=== PATIENT | female | born 1965 | race American Indian/Alaskan Native ===

== ENCOUNTER 2016-09-21 10:01 | Observation (INO) | payer MEDICAID, OTHER ==
--- NOTE | 2016-09-21 10:16 | ED PDOC ---
Arrival/HPI - General Time Seen by Provider: 09/21/16 10:07 Historian: Patient - History of Present Illness Narrative History of Present Illness (Text): 09/21/16 10:16 This 50 yo female with pmh alcohol dependence, seizures, substance abuse, presents to this ED c/o lower back pain x 2 days. Patient admits drinking Vodka last night, and she feels nausea this morning. Patient denies abdominal pain, or pelvic pain. Denies urinary symptoms, rectal bleeding, hematemesis, or sob. Patient denies recent fall or trauma. Time/Duration: Other (2 days) Quality: Aching Context: Home Past Medical History - Provider Review Nursing Documentation Reviewed: Yes - Infectious Disease Hx of Infectious Diseases: None - Cardiac Hx Hypertension: Yes - Pulmonary Hx Bronchitis: Yes - Neurological Hx Seizures: Yes - Hematological/Oncological Hx Cancer: No - Musculoskeletal/Rheumatological Hx Falls: No - Gastrointestinal Other/Comment: never had EGD or Colon - Psychiatric Hx Substance Use: Yes - Surgical History Hx Orthopedic Surgery: Yes (20 YEARS) - Anesthesia Hx Anesthesia: Yes Hx Anesthesia Reactions: No Hx Malignant Hyperthermia: No - Suicidal Assessment Feels Threatened In Home Enviroment: No Family/Social History - Physician Review Nursing Documentation Reviewed: Yes Family/Social History: No Known Family HX Smoking Status: Light Smoker < 10 Cigarettes Daily Hx Alcohol Use: Yes Hx Substance Use: Yes Substance used: MARAJUANA Allergies/Home Meds Allergies/Adverse Reactions: Allergies No Known Allergies Allergy (Verified 09/21/16 10:31) Review of Systems - Review of Systems Constitutional: Normal. absent: Fatigue, Weight Change, Fevers Eyes: Normal ENT: Normal Respiratory: Normal. absent: SOB, Cough, Sputum Cardiovascular: Normal. absent: Chest Pain, Palpitations Gastrointestinal: Nausea, Vomiting. absent: Abdominal Pain, Stool Changes, Constipation, Diarrhea, Appetite Changes, Hematochezia, Hematemesis Genitourinary Female: Normal. absent: Dysuria, Frequency, Hematuria, Vaginal Bleeding, Vaginal Discharge Musculoskeletal: Normal, Back Pain Skin: Normal Neurological: Normal. absent: Headache, Dizziness, Focal Weakness, Gait Changes , Speech Changes, Facial Droop Endocrine: Normal Hemo/Lymphatic: Normal Psychiatric: Normal Physical Exam Vital Signs Temp Pulse Resp BP Pulse Ox 09/21/16 17:30 107 H 15 138/90 95 09/21/16 15:28 110 H 16 146/79 97 09/21/16 13:17 111 H 16 131/80 98 09/21/16 10:23 99.1 F 118 H 18 172/89 H 98 Temperature: Afebrile Blood Pressure: Normal Pulse: Regular Respiratory Rate: Normal Appearance: Positive for: Well-Appearing, Non-Toxic, Comfortable Pain Distress: None Mental Status: Positive for: Alert and Oriented X 3 - Systems Exam Head: Present: Atraumatic, Normocephalic Pupils: Present: PERRL Extroacular Muscles: Present: EOMI Conjunctiva: Present: Normal Mouth: Present: Moist Mucous Membranes Neck: Present: Normal Range of Motion Respiratory/Chest: Present: Clear to Auscultation, Good Air Exchange. No: Respiratory Distress, Accessory Muscle Use, Wheezes, Retracting, Rhonchi Cardiovascular: Present: Regular Rate and Rhythm, Normal S1, S2. No: Murmurs Abdomen: Present: Tenderness (generalized tenderness), Normal Bowel Sounds. No : Distention, Peritoneal Signs, Rebound, Guarding Back: Present: Normal Inspection. No: CVA Tenderness Upper Extremity: Present: Normal Inspection. No: Cyanosis, Edema Lower Extremity: Present: Normal Inspection, NORMAL PULSES, Normal ROM, Neurovascularly Intact, Capillary Refill < 2 s. No: Edema, CALF TENDERNESS Neurological: Present: GCS=15, CN II-XII Intact, Speech Normal, Motor Func Grossly Intact, Normal Sensory Function Skin: Present: Warm, Dry, Normal Color. No: Rashes Psychiatric: Present: Alert, Oriented x 3, Normal Insight, Normal Concentration Medical Decision Making ED Course and Treatment: 09/21/16 16:[address] Heredia Hospitalist, regarding patient c/o back pain, abnormal CT scan, alcohol withdrawing, and abnormal labs. She agreed with plan for observation Re-evaluation Time: 16:51 Reassessment Condition: Re-examined, Improving,but remains with symptoms - Lab Interpretations Microbiology Results: Microbiology Results 09/21/16 16:00 Urine,Clean Catch Urine Culture - Final Escherichia Coli Lab Results: 09/21/16 10:48 09/21/16 10:48 Lab Results 09/21/16 14:43: Urine Color yellow, Urine Appearance Clear, Urine pH 7.5, Ur Specific [place] 1.015, Urine Protein 100 H, Urine Glucose (UA) Negative, Urine Ketones 40 H, Urine Blood Negative, Urine Nitrate Negative, Urine Bilirubin Negative, Urine Urobilinogen 1.0 H, Ur Leukocyte Esterase Negative, Urine RBC TEST NOT PERFORMED, Urine WBC 5 - 10, Ur Epithelial Cells 10 - 12, Amorphous Sediment Small, Urine Bacteria Trace 09/21/16 10:48: Alcohol, Quantitative 19 H 09/21/16 10:48: Sodium 136, Potassium 3.1 L, Chloride 83 L, Carbon Dioxide 20 L , Anion Gap 36 H, BUN 18, Creatinine 0.6, Est GFR ( Amer) > 60, Est GFR ( Non-Af Amer) > 60, Random Glucose 94, Calcium 9.2, Total Bilirubin 0.8, AST 181 H, ALT 468 H, Alkaline Phosphatase 157 H, Total Protein 8.3, Albumin 4.5, Globulin 3.8, Albumin/Globulin Ratio 1.2, Lipase 16 L 09/21/16 10:48: WBC 17.6 H D, RBC 4.67, Hgb 14.5, Hct 41.2, MCV 88.2, MCH 31.0, MCHC 35.2, RDW 15.0 H, Plt Count 304, MPV 9.3, Gran % 88.2 H, Lymph % (Auto) 8.3 L, Cowley % (Auto) 3.4, Eos % (Auto) 0.0 L, Baso % (Auto) 0.1, Gran # 15.48 H , Lymph # 1.5, Cowley # 0.6, Eos # 0.0, Baso # 0.02 I have reviewed the lab results: Yes Interpretation: Abnormal lab values - RAD Interpretation Narrative RAD Interpretations (Text): 09/21/16 17:28 CXR: NAD CT Abdomen/Pelvis scan was abnormal. See official report Radiology Orders: 09/21/16 11:38 CHEST PORTABLE [RAD] Stat 09/21/16 11:55 ABD & PELVIS W/O PO OR IV CONT [CT] Stat - EKG Interpretation Interpreted by ED Physician: Yes (Sinus tachycardia @ [address] Changes) Type: 12 lead EKG Comparison: No previous EKG avail. - Medication Orders Current Medication Orders: Discontinued Medications Amlodipine Besylate (Norvasc) 5 mg PO DAILY LUISITO Last Admin: 09/22/16 13:50 Dose: 5 mg Multivitamins/Vitamin C 10 ml/Thiamine HCl 100 mg/ Folic Acid 1 mg/ Sodium Chloride 1,011.2 mls @ 1,000 mls/hr IV .Q1H1M ONE Stop: 09/21/16 11:17 Last Admin: 09/21/16 11:14 Dose: 1,000 mls/hr Famotidine (Pepcid 20mg/50ml Premix) 20 mg in 50 mls @ 100 mls/hr IVPB STAT STA Stop: 09/21/16 10:46 Last Admin: 09/21/16 10:45 Dose: 100 mls/hr Sodium Chloride (Sodium Chloride 0.9%) 1,000 mls @ 999 mls/hr IV .Q1H1M STA Stop: 09/21/16 12:36 Last Admin: 09/21/16 11:46 Dose: 999 mls/hr Sodium Chloride (Sodium Chloride 0.9%) 1,000 mls @ 999 mls/hr IV .Q1H1M STA Stop: 09/21/16 17:45 Last Admin: 09/21/16 17:25 Dose: 999 mls/hr Folic Acid 1 mg/ Thiamine HCl 100 mg/ Multivitamins/Vitamin C 10 ml/ Dextrose 1 ,011.2 mls @ 100 mls/hr IV .Q10H7M [facility] Folic Acid 1 mg/ Thiamine HCl 100 mg/ Multivitamins/Vitamin C 10 ml/ Potassium Chloride 40 meq/ Dextrose 1,031.2 mls @ 100 mls/hr IV .[id number] [facility] Last Admin: 09/22/16 11:40 Dose: 100 mls/hr Ceftriaxone Sodium (Rocephin 1 Gram Ivpb) 1 gm in 100 mls @ 100 mls/hr IVPB DAILY LUISITO PRN Reason: Protocol Last Admin: 09/22/16 09:51 Dose: 100 mls/hr Lorazepam (Ativan) 2 mg IVP ONCE ONE PRN Reason: Protocol Stop: 09/21/16 10:18 Last Admin: 09/21/16 10:44 Dose: 2 mg Lorazepam (Ativan) 2 mg IVP ONCE ONE PRN Reason: Protocol Stop: 09/21/16 16:48 Last Admin: 09/21/16 17:25 Dose: 2 mg Lorazepam (Ativan) 1 mg IVP Q6H PRN; Protocol PRN Reason: Anxiety Lorazepam (Ativan) 2 mg IVP Q3 PRN; Protocol PRN Reason: Anxiety Last Admin: 09/22/16 04:28 Dose: 2 mg Re-Assess: Reassess Psych Meds Document 09/22/16 04:58 LG (Rec: 09/22/16 07:04 LG [id number]) Reassess Psych Med Effective Lorazepam (Ativan) 1 mg IVP Q6H PRN; Protocol PRN Reason: Anxiety Lorazepam (Ativan) 2 mg PO QID LUISITO PRN Reason: Protocol Morphine Sulfate (Morphine) 2 mg IVP STAT STA Stop: 09/21/16 11:38 Last Admin: 09/21/16 13:17 Dose: 2 mg Morphine Sulfate (Morphine) 4 mg IVP STAT STA Stop: 09/21/16 16:45 Last Admin: 09/21/16 17:25 Dose: 4 mg Nicotine (Nicoderm Cq) 1 patch TD DAILY LUISITO Last Admin: 09/22/16 09:51 Dose: 1 patch Ondansetron HCl (Zofran Inj) 4 mg IVP STAT STA Stop: 09/21/16 11:38 Last Admin: 09/21/16 11:51 Dose: 4 mg Ondansetron HCl (Zofran Inj) 4 mg IVP STAT STA Stop: 09/21/16 16:46 Last Admin: 09/21/16 17:25 Dose: 4 mg Ondansetron HCl (Zofran Inj) 4 mg IVP Q4H PRN PRN Reason: Nausea/Vomiting Last Admin: 09/21/16 19:16 Dose: 4 mg Pantoprazole Sodium (Protonix Inj) 40 mg IVP DAILY LUISITO Last Admin: 09/22/16 09:51 Dose: 40 mg Potassium Chloride (K-Dur 20 Meq Er Tab) 60 meq PO STAT STA Stop: 09/21/16 11:40 Last Admin: 09/21/16 11:51 Dose: 60 meq Potassium Chloride (Potassium Chloride Oral Soln) 40 meq PO ONCE ONE Stop: 09/22/16 07:20 Last Admin: 09/22/16 09:56 Dose: 40 meq Tramadol HCl (Ultram) 50 mg PO TID PRN PRN Reason: Pain, severe (8-10) Last Admin: 09/22/16 13:50 Dose: 50 mg Disposition/Present on Arrival - Present on Arrival Any Indicators Present on Arrival: No History of DVT/PE: No History of Uncontrolled Diabetes: No Urinary Catheter: No History Surgical Site Infection Following: None - Disposition Have Diagnosis and Disposition been Completed?: Yes Diagnosis: Alcohol withdrawal, Esophagitis, Abdominal pain, Back pain Disposition: HOSPITALIZED Disposition Time: 16:53 Patient Plan: Observation Condition: STABLE
[2016-09-21] MEDS ORDERED: Famotidine 20mg/50ml 20 MG/50 ML BAG IVPB STA (10:17)
[2016-09-21] MEDS ORDERED: Multivitamin (MVI) 10 ML, Thiamine 100 MG, Folic Acid 1 MG in Sodium Chloride 0.9% 1,00... IV ONE (10:17)
[2016-09-21 10:53] LABS: BASO # 0.02 K/mm3 (0.0-2.0); BASO % 0.1 % (0.0-3.0); GRAN # 15.48 (1.4-6.5); GRAN % 88.2 % (50.0-68.0); HEMOGLOBIN 14.5 gm/dL (12.0-16.0); LYMPH # 1.5 (1.2-3.4); LYMPH % 8.3 % (22.0-35.0); MEAN CELL VOLUME 88.2 fL (80.0-105.0); MEAN CORPUSCULAR HGB CONC 35.2 g/dl (31.0-37.0); MEAN PLATELET VOLUME 9.3 fl (7.0-11.0); MONO # 0.6 (0.1-0.6); MONO % 3.4 % (1.0-6.0); PLATELET COUNT 304 10^3/uL (120.0-450.0); RBC 4.67 10^6/uL (3.5-6.1); WHITE BLOOD COUNT 17.6 10^3/ul (4.5-11.0)
[2016-09-21 11:03] LABS: ALB/GLOB RATIO 1.2 (1.1-1.8); ALBUMIN 4.5 g/dL (3.0-4.8); ALT/SGPT 468 U/L (7-56); AST/SGOT 181 U/L (15-39); BLOOD UREA NITROGEN 18 mg/dL (7-21); CALCIUM 9.2 mg/dL (8.4-10.5); GFR AFRICAN-AMERICAN > 60; GFR NON-AFRICAN AMERICAN > 60
[2016-09-21 11:13] LABS: LIPASE 16 U/L (23-300)
[2016-09-21] MEDS ORDERED: Sodium Chloride 0.9% 1,000 ML IV STA ×2 (11:36→16:45)
[2016-09-21] MEDS ORDERED: Morphine 2 mg/ml ISec IVP STA (11:37)
[2016-09-21] MEDS ORDERED: Potassium Chloride 20 mEq ER Tab PO STA (11:39)
--- NOTE | 2016-09-21 14:06 | RAD ---
HISTORY: cough COMPARISON: Chest radiograph dated 03/28/2016 FINDINGS: LUNGS: Mild bibasilar atelectasis left greater than right. Developing infiltrates could be excluded followup radiographs PLEURA: No significant pleural effusion identified, no pneumothorax apparent. CARDIOVASCULAR: Normal. OSSEOUS STRUCTURES: No significant abnormalities. VISUALIZED UPPER ABDOMEN: Normal. OTHER FINDINGS: None. IMPRESSION: Mild bibasilar atelectasis left greater than right ; developing infiltrates could be excluded followup radiographs
[2016-09-21 15:24] LABS: PH,URINE 7.5 (4.7-8.0); URINE BILIRUBIN NEGATIVE (NEGATIVE); URINE BLOOD NEGATIVE (NEGATIVE); URINE GLUCOSE (UA) NEGATIVE (NEGATIVE); URINE LEUKOCYTE ESTERASE NEGATIVE Leu/uL (NEGATIVE); URINE NITRATE NEGATIVE (NEGATIVE); URINE PROTEIN 100 mg/dL (<30 mg/dL)
[2016-09-21 15:45] LABS: URINE AMORPHOUS SEDIMENT SMALL; URINE APPEARANCE CLEAR (CLEAR); URINE BACTERIA TRACE (NEG)
--- NOTE | 2016-09-21 16:19 | CT ---
Procedure CT abdomen pelvis dated 09/21/2016 History nausea, vomiting, epigastric, right flank pain Comparison Comparison made with CT scan of the abdomen pelvis 03/28/2016. Technique Contiguous axial images of the abdomen and pelvis performed in standard fashion following without the use of oral or intravenous contrast material. Two dimensional sagittal and coronal reformats generated. Radiation dose: Total exam DLP = 633.42 mGy-cm. This CT exam was performed using one or more of the following dose reduction techniques: Automated exposure control, adjustment of the mA and/or kV according to patient size, and/or use of iterative reconstruction technique. Findings Lower thorax Bibasilar atelectasis and or scarring changes left greater than right. No evidence of effusion or basilar pneumothorax. There is a moderate size hiatal hernia with mild wall thickening of the distal esophagus that may in part be due to exclusion of gastric mucosa. Esophagitis or other intrinsic/invasive wall lesion not excluded. Endoscopy followup is recommended if clinically indicated to exclude esophageal carcinoma. Liver Liver is borderline/ mildly enlarged measuring nearly 18 cm in CC dimension. Moderate diffuse fatty hepatic infiltration. No obvious hepatic mass or collection identified on this noncontrast study. Gallbladder and bile ducts Gallbladder is physiologically distended no evidence of intraluminal gallbladder calculi. Pancreas The pancreas appears grossly unremarkable so far as can sandrine intravenous circulating intravenous contrast material as well as under opacified adjacent bowel. Spleen Spleen exhibits normal size and attenuation pattern without mass collection or calcification. Adrenals Slightly nodular appearing left adrenal gland. Kidneys and ureters Kidneys demonstrate relatively symmetric size. No evidence of nephrolithiasis or hydronephrosis. Bladder . Urinary bladder is physiologically distended. No evidence of intraluminal urinary bladder calculi. Reproductive The uterus appears unremarkable. Apparent left adnexal cyst that measures approximately 2.75cm ap x 2.4cm t x 2.2cm cc. Appendix Appendix is unremarkable best seen on axial image number [id number]. Bowel Evaluation of the bowel is limited due to by lack of oral contrast material. As mentioned above Additionally, the stomach is incompletely distended which may also in part account for thick-walled appearance the possibility of a gastritis or carcinoma also not excluded. Clinical correlation recommended. Visualized loops of small bowel exhibit normal contour and caliber. No evidence of acute mechanical small bowel obstruction however there does appear to be fecalized content within the small bowel possibly due to stasis. There is mild submucosal fat deposition within the cecum, ascending and proximal transverse colon ; rule out sequela of chronic inflammation. . Peritoneum Unremarkable. No fluid collection. No free air. Tiny fat containing umbilical hernia. Lymph nodes No significant enlarged/bulky adenopathy. Lymph nodes. Vasculature No evidence of abdominal aortic or iliac artery aneurysms. Bones Minor multilevel degenerative spondylosis of the lower thoracic and lumbar spine. No evidence of acute compression fractures no retropulsed fragments. Other Findings None. Impression Bibasilar atelectasis and or scarring left greater than right. There is a moderate size hiatal hernia with wall thickening of the distal esophagus to protrusion of gastric mucosa however the possibility of esophagitis or other intrinsic/invasive wall lesion including esophageal carcinoma not excluded. Additionally,, there is wall thickening of the stomach which may in part be due to incomplete distention however gastritis or other invasive wall lesion including gastric carcinoma should be excluded. Followup endoscopy suggested for further evaluation. Borderline -mild hepatomegaly. Moderate diffuse fatty hepatic infiltration. Mild submucosal fatty deposition involving the cecum ascending and proximal transverse colon; rule out sequela of chronic inflammation. The probable Left adnexal cyst. Findings discussed with emergency room SOPHIE Wilder at approximately 4:10 p.m. with written down and read back verification
[2016-09-21] MEDS ORDERED: Morphine 4 mg/ml ISec IVP STA (16:44)
[2016-09-21 17:32] LABS: BARBITURATES, UR NEGATIVE (NEGATIVE); BENZODIAZEPINES, UR NEGATIVE (NEGATIVE); OPIATES, UR NEGATIVE (NEGATIVE); PHENCYCLIDINE, UR NEGATIVE (NEGATIVE)
[2016-09-21] MEDS ORDERED: Folic Acid 1 MG, Thiamine 100 MG, Multivitamin (MVI) 10 ML in Dextrose 5% In Water 1,00... IV SCH (18:00)
--- NOTE | 2016-09-21 20:22 | CP.PCM.HP ---
<Dexter Yancey - Last Filed: 09/21/16 20:43> History of Present Illness - History of Present Illness History of Present Illness: Patient is a 50 year old female who presented to the ED with complaint of lower back pain, abdominal pain, and EtOH withdrawal symptoms. Patient stated that she was binge drinking late last night due to problems she had with her brother and father, and then took one of her fathers Danielapins to fall asleep. Patient stated she was Hungover in the morning and forced herself to vomit. She decided to come to the ED when her abdominal pain/back pain got worse ROS: Complains of: Dizziness, Back Pain. Generalized body aches, diffuse abdominal pain, loose stools, and palpatations. Denies: SOB, Urinary incontinence, radiculopathy, bowel inconstinence PMH: Diabetes and Heartburn PSH: Pin in foot over 30 years ago Allergies: NKDA Fam Hx: Pancreatic Cancer (Father-Alive), Cancer (Paternal Uncle-), Cancer (Paternal Aunt- Alive Social Hx: Binge drinks once in a while, Marijuana, Smokes pack a day for about 35 years. 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 Present on Admission - Present on Admission Any Indicators Present on Admission: No Review of Systems - Review of Systems All systems: reviewed and no additional remarkable complaints except - Constitutional Constitutional: As Per HPI - EENT Ears: As Per HPI - Cardiovascular Cardiovascular: As Per HPI - Respiratory Respiratory: As Per HPI - Gastrointestinal Gastrointestinal: As Per HPI - Genitourinary Genitourinary: As Per HPI - Musculoskeletal Musculoskeletal: As Per HPI - Neurological Neurological: As Per HPI Past Patient History - Infectious Disease Hx of Infectious Diseases: None - Past Medical History & Family History Past Medical History?: Yes - Past Social History Smoking Status: Light Smoker < 10 Cigarettes Daily - CARDIAC Hx Hypertension: Yes - PULMONARY Hx Bronchitis: Yes - NEUROLOGICAL Hx Seizures: Yes - HEMATOLOGICAL/ONCOLOGICAL Hx Cancer: No - MUSCULOSKELETAL/RHEUMATOLOGICAL Hx Falls: No - GASTROINTESTINAL Other/Comment: never had EGD or Colon - PSYCHIATRIC Hx Substance Use: Yes - SURGICAL HISTORY Hx Orthopedic Surgery: Yes (20 YEARS) - ANESTHESIA Hx Anesthesia: Yes Hx Anesthesia Reactions: No Hx Malignant Hyperthermia: No Meds Allergies/Adverse Reactions: Allergies Allergy/AdvReac Type Severity Reaction Status Date / Time No Known Allergies Allergy Verified 09/21/16 10:31 Physical Exam - Constitutional Appears: Toxic - Head Exam Head Exam: ATRAUMATIC, NORMOCEPHALIC - Eye Exam Eye Exam: EOMI - Respiratory Exam Respiratory Exam: Clear to Auscultation Bilateral. absent: Rales, Wheezes - Cardiovascular Exam Cardiovascular Exam: Tachycardia, +S1, +S2 - GI/Abdominal Exam Additional comments: Diffuse Abdominal Tenderness - Extremities Exam Extremities exam: Negative for: pedal edema - Back Exam Back exam: paraspinal tenderness. absent: CVA tenderness (L), CVA tenderness (R ) - Neurological Exam Neurological exam: Alert, Oriented x3 - Psychiatric Exam Psychiatric exam: Depressed - Skin Skin Exam: Normal Color Results - Vital Signs Recent Vital Signs: Last Vital Signs Temp 98.4 F 09/21/16 19:16 Pulse 102 H 09/21/16 19:16 Resp 20 09/21/16 19:16 BP 144/97 H 09/21/16 19:16 Pulse Ox 98 09/21/16 19:16 - Labs Result Diagrams: 09/21/16 10:48 09/21/16 10:48 Labs: Laboratory Results - last 24 hr 09/21/16 17:05 Urine Opiates Screen Negative Urine Methadone Screen Negative Ur Barbiturates Screen Negative Ur Phencyclidine Scrn Negative Ur Amphetamines Screen Negative U Benzodiazepines Scrn Negative U Oth Cocaine Metabols Negative U Cannabinoids Screen Positive H Assessment & Plan - Assessment and Plan (Free Text) Assessment: This is a 50 year old female who was admitted for Abdominal Pain, Back Pain, and Alcohol withdrawal. CT Abd/Pelvis on admission was read as: Bibasilar atelectasis or scarring left greater than right. Moderate size hiatal hernia with wall thickening of the distal esophagus to protrusion of gastric mucosa however the possibility of esophagitis or other intrinsic/invasive wall lesion including esophageal carcinoma not excluded. Also wall thickening of stomach. Borderline mild hepatomegaly, moderate diffuse fatty hepatic infiltration. Mild submucosal fatty deposition involving the cecum ascending and proximal transverse colon; rule out sequela of chronic inflammation. Patient also had elevated White Count, elevated liver enzymes, and loose stools (while in ED) Plan: 1. Alcohol Withdrawal -Ativan -WA protocol -Seizure precautions -Aspiration precaution. 2. Abdominal Pain likely Alcoholic Gastritis -CT Scan -Morphine -Liquid Diet -GI Consult 3. Elevated White Count (17.6 on admission) -Procal -Urine/Blood Cultures -Rocephin -Stool culture for CDiff CBC 4. Elevated LFTs -Lipid Panel -CMP -Hep Panel 5. Nicotine dependence -Nicotine Patch 6. Depressive Symptoms/Etoh Abuse -Psych Consult - Date & Time Date: 09/21/16 Time: 20:44 <Dev Heredia - Last Filed: 09/22/16 16:02> Results - Vital Signs Recent Vital Signs: Last Vital Signs Temp 99.7 F H 09/22/16 11:10 Pulse 90 09/22/16 13:50 Resp 18 09/22/16 11:10 BP 160/105 H 09/22/16 13:50 Pulse Ox 100 09/22/16 11:10 - Labs Result Diagrams: 09/22/16 07:00 09/22/16 06:00 Labs: Laboratory Results - last 24 hr 09/21/16 09/22/16 09/22/16 17:05 06:00 06:00 WBC RBC Hgb Hct MCV MCH MCHC RDW Plt Count MPV PT INR APTT Sodium 134 Potassium 3.5 L Chloride 97 L Carbon Dioxide 28 Anion Gap 13 BUN 7 Creatinine 0.7 Est GFR ( Amer) > 60 Est GFR (Non-Af Amer) > 60 Random Glucose 129 H Calcium 8.1 L Magnesium 1.8 Total Bilirubin 1.2 AST 103 H ALT 278 H Alkaline Phosphatase 121 Total Protein 6.6 Albumin 3.4 Globulin 3.2 Albumin/Globulin Ratio 1.1 Triglycerides 226 H Cholesterol 112 L LDL Cholesterol Direct < 30 HDL Cholesterol 39 Procalcitonin 0.09 L Urine Opiates Screen Negative Urine Methadone Screen Negative Ur Barbiturates Screen Negative Ur Phencyclidine Scrn Negative Ur Amphetamines Screen Negative U Benzodiazepines Scrn Negative U Oth Cocaine Metabols Negative U Cannabinoids Screen Positive H Hepatitis A IgM Ab Hep Bs Antigen Hep B Core IgM Ab Hepatitis C Antibody 09/22/16 09/22/16 09/22/16 07:00 07:00 07:00 WBC 10.1 D RBC 4.16 Hgb 12.3 Hct 37.4 MCV 89.9 MCH 29.6 MCHC 32.9 RDW 15.4 H Plt Count 216 MPV 9.1 PT 10.5 INR 0.97 APTT 27.3 Sodium Potassium Chloride Carbon Dioxide Anion Gap BUN Creatinine Est GFR ( Amer) Est GFR (Non-Af Amer) Random Glucose Calcium Magnesium Total Bilirubin AST ALT Alkaline Phosphatase Total Protein Albumin Globulin Albumin/Globulin Ratio Triglycerides Cholesterol LDL Cholesterol Direct HDL Cholesterol Procalcitonin Urine Opiates Screen Urine Methadone Screen Ur Barbiturates Screen Ur Phencyclidine Scrn Ur Amphetamines Screen U Benzodiazepines Scrn U Oth Cocaine Metabols U Cannabinoids Screen Hepatitis A IgM Ab Negative Hep Bs Antigen Negative Hep B Core IgM Ab Negative Hepatitis C Antibody Negative Attending/Attestation - Attestation I have personally seen and examined this patient.: Yes I have fully participated in the care of the patient.: Yes I have reviewed all pertinent clinical information: Yes Notes (Text): 09/22/16 15:57 Attending note; Patient seen and examined with resident. Patient is a 50-year-old female admitted with alcohol abuse/back pain/abdominal pain. CT abdomen consistent with esophagitis/gastritis. GI evaluation Requested. Started on IV banana bag. Ativan when necessary for withdrawal symptoms. Continue CIWA protocol. Complete alcohol cessation is strongly advised. Patient with a history of chronic alcohol abuse. elevated LFTs; secondary to alcohol abuse. Monitor closely. Hepatitis serology ordered. Mild leukocytosis; monitor closely. Patient is afebrile and nontoxic. depression; psychiatric evaluation requested. active smoking; Smoking cessation is strongly advised. Started on NicoDerm patch. AA meetings/rehabilitation recommended again. advised to follow-up with PMD of choice. 09/22/16 16:01 09/22/16 16:01
[2016-09-21] MEDS: Folic Acid 1 MG, Thiamine 100 MG, Multivitamin (MVI) 10 ML, Potassium Chloride 40 MEQ i... IV SCH (20:30)
[2016-09-22 01:08] VITALS: RESP 18; BMI 27.9
[2016-09-22 07:07] LABS: ALB/GLOB RATIO 1.1 (1.1-1.8); ALBUMIN 3.4 g/dL (3.0-4.8); ALT/SGPT 278 U/L (7-56); AST/SGOT 103 U/L (15-39); BLOOD UREA NITROGEN 7 mg/dL (7-21); CALCIUM 8.1 mg/dL (8.4-10.5); GFR AFRICAN-AMERICAN > 60; GFR NON-AFRICAN AMERICAN > 60; HDL CHOLESTEROL 39 mg/dL (29-60); MAGNESIUM 1.8 mg/dL (1.7-2.2)
[2016-09-22] MEDS ORDERED: Potassium Chloride 40 mEq/30 ml LIQ UD PO ONE (07:19)
[2016-09-22 07:30] LABS: HEMOGLOBIN 12.3 gm/dL (12.0-16.0); MEAN CELL VOLUME 89.9 fL (80.0-105.0); MEAN CORPUSCULAR HEMOGLOBIN 29.6 pg (25.0-35.0); MEAN CORPUSCULAR HGB CONC 32.9 g/dl (31.0-37.0); MEAN PLATELET VOLUME 9.1 fl (7.0-11.0); RBC 4.16 10^6/uL (3.5-6.1); RED CELL DISTRIBUTION WIDTH 15.4 % (11.5-14.5); WHITE BLOOD COUNT 10.1 10^3/ul (4.5-11.0)
[2016-09-22 07:39] LABS: LDL CHOLESTEROL < 30 mg/dL (0-129)
[2016-09-22 07:42] LABS: INR 0.97 (0.93-1.08); PARTIAL THROMBOPLASTIN TIME 27.3 Seconds (23.7-30.8); PROTHROMBIN TIME 10.5 Seconds (9.9-11.8)
--- NOTE | 2016-09-22 08:25 | CON ---
DATE: 09/22/2016 HISTORY OF PRESENT ILLNESS: I saw Ms. Pickard this morning. She is a 50-year-old black female with a history of diabetes, acid reflux, sores, significant alcohol use, and now with complaints of lower back pain and alcohol withdrawal issues. She has been drinking heavily over the past week or so due to family issues. She is denying hematemesis or rectal bleeding. At the current time point, this morning at the bedside, the patient denies any abdominal pain. PHYSICAL EXAMINATION: VITAL SIGNS: I reviewed this patient's vital signs.. HEENT: Noncontributory. LUNGS: Clear to auscultation. HEART: Regular rate and rhythm. ABDOMEN: Soft and no tenderness elicited in any quadrant. LABORATORY DATA: I reviewed this patient's laboratory data. White count significant for 17.6, H and H 14.4 and 41, and platelet count of 304. Evaluation of comp metabolic indicates hypokalemia, bilirubin is 0.8, AST and ALT ratio 181/468, and alkaline phosphate 157. UA noncontributory. She had an alcohol level of 19. Review of radiology indicates substantial degree of hepatic steatosis. I reviewed the x-ray images, also the comment of the radiologist indicating thick-walled stomach distally. I think the suggestion is reasonable for an endoscopy at some later date, not at the current time point. ASSESSMENT AND PLAN: This is a 50-year-old black female admitted with history of alcohol use and for detox. I reviewed the patient's orders, which consist of Ativan, IV fluids, calcium supplementation, as well as PPI. The patient is currently on ceftriaxone ordered by Dr. Heredia. Unclear etiology of her back pain, this can be worked up by the house staff. Keaton Singh DO, PhD REGINALD
[2016-09-22] MEDS ORDERED: cefTRIAXone 1 gm 1 GM/100 ML BAG IVPB SCH (10:00)
[2016-09-22] MEDS: Folic Acid 1 MG, Thiamine 100 MG, Multivitamin (MVI) 10 ML, Potassium Chloride 40 MEQ i... IV SCH (11:40)
[2016-09-22 12:14] LABS: HEPATITIS B SURFACE AG NEGATIVE (NEGATIVE)
[2016-09-22 12:20] LABS: HEPATITIS A IGM NEGATIVE (NEGATIVE); HEPATITIS B CORE AB NEGATIVE (NEGATIVE)
[2016-09-22 12:33] LABS: HEPATITIS C ANTIBODY NEGATIVE (NEGATIVE)
--- NOTE | 2016-09-22 14:26 | CP.PCM.CON ---
History of Present Illness - History of Present Illness History of Present Illness: This 50 yo female with pmh alcohol dependence, seizures, substance abuse, previous detoxes and rehabs, denied previous admission to the psychiatric inpatient unit, patient was admitted on the medical side for evaluation stabilization of alcohol withdrawal symptoms, psychotic consult was called for evaluation of depressive symptoms as well as medication management. Patient was seen on exam today, patient was observed sitting in the bed, mildly confused, patient was observed eating some ice cream. Patient reported that she feels withdrawal symptoms from her alcohol observed to have mild upper extremity tremor, blood pressure elevated, patient is tachycardic. Patient said that she is not depressed, denied thoughts of harming herself or others,denied intent or plan. Patient also denied visual, auditory, tactile hallucinations, denied paranoid ideations, patient does not present to be a psychotic. Patient denied being anxious. Patient reports that that she has no suicidal ideations, no homicidal ideations , patient denied any intent or plan. Patient reported that she smokes marijuana "on and off". Past psychiatric history: Patient denied history of being admitted to the psychiatric inpatient unit, patient was admitted to detox unit in 2014 patient was discharged on Neurontin, Wellbutrin, trazodone, and Vistaril. Patient does not want to be resumed on any psychotropic medications. Patient reported that she has a good night sleep. Patient is unemployed. All labs reviewed. Vitals reviewed, patient is tachycardic, has hypertension, most likely related to alcohol withdrawal symptoms. Mental status examination: Patient presented to be alert, pleasant, superficially corporative. Patient has intermittent eye contact, speech was underproductive, only yes or no answers, more described as "I'm not depressed, I 'm just fine". Thought process was concrete. Thought content patient denied visual distorted tactile hallucinations denied paranoid ideations patient denied thoughts of harming herself or others intent or plan, insight and judgment fair impulses are well controlled. Impression: alcohol withdrawals alcohol use disorder r/o substance induced mood disorder. Plan: ultivitamins, thiamine, folic acid Ativan scheduled will be implemented 2 mg 4 times a day, patient still has withdrawal symptoms, tachycardic, high blood pressure, tremor. When necessary medications Naltrexone and feels neutral need to be discussed with the patient social worker evaluation for possible inpatient rehabs AA/NA meetings this bond underwriter will sign off Should you have any questions give me a call back. Past Patient History - Infectious Disease Hx of Infectious Diseases: None - Past Medical History & Family History Past Medical History?: Yes - Past Social History Smoking Status: Light Smoker < 10 Cigarettes Daily - CARDIAC Hx Hypertension: Yes - PULMONARY Hx Bronchitis: Yes - NEUROLOGICAL Hx Seizures: Yes - RENAL Hx Chronic Kidney Disease: No - HEMATOLOGICAL/ONCOLOGICAL Hx Cancer: No - INTEGUMENTARY Hx Dermatological Problems: No - MUSCULOSKELETAL/RHEUMATOLOGICAL Hx Falls: No - GASTROINTESTINAL Other/Comment: never had EGD or Colon - PSYCHIATRIC Hx Substance Use: Yes - SURGICAL HISTORY Hx Orthopedic Surgery: Yes (20 YEARS) - ANESTHESIA Hx Anesthesia: Yes Hx Anesthesia Reactions: No Hx Malignant Hyperthermia: No Meds Allergies/Adverse Reactions: Allergies Allergy/AdvReac Type Severity Reaction Status Date / Time No Known Allergies Allergy Verified 09/21/16 10:31 - Medications Medications: Current Medications Amlodipine Besylate (Norvasc) 5 mg PO DAILY [facility] Last Admin: 09/22/16 13:50 Dose: 5 mg Folic Acid 1 mg/ Thiamine HCl 100 mg/ Multivitamins/Vitamin C 10 ml/ Potassium Chloride 40 meq/ Dextrose 1,031.2 mls @ 100 mls/hr IV [id number] [facility] Last Admin: 09/22/16 11:40 Dose: 100 mls/hr Ceftriaxone Sodium (Rocephin 1 Gram Ivpb) 1 gm in 100 mls @ 100 mls/hr IVPB DAILY [facility] PRN Reason: Protocol Last Admin: 09/22/16 09:51 Dose: 100 mls/hr Lorazepam (Ativan) 1 mg IVP Q6H PRN; Protocol PRN Reason: Anxiety Nicotine (Nicoderm Cq) 1 patch TD DAILY [facility] Last Admin: 09/22/16 09:51 Dose: 1 patch Ondansetron HCl (Zofran Inj) 4 mg IVP Q4H PRN PRN Reason: Nausea/Vomiting Last Admin: 09/21/16 19:16 Dose: 4 mg Pantoprazole Sodium (Protonix Inj) 40 mg IVP DAILY [facility] Last Admin: 09/22/16 09:51 Dose: 40 mg Tramadol HCl (Ultram) 50 mg PO TID PRN PRN Reason: Pain, severe (8-10) Last Admin: 09/22/16 13:50 Dose: 50 mg Results - Vital Signs Recent Vital Signs: Last Vital Signs Temp 99.7 F H 09/22/16 11:10 Pulse 90 09/22/16 13:50 Resp 18 09/22/16 11:10 BP 160/105 H 09/22/16 13:50 Pulse Ox 100 09/22/16 11:10 - Labs Result Diagrams: 09/22/16 07:00 09/22/16 06:00 Labs: Laboratory Results - last 24 hr 09/21/16 09/22/16 09/22/16 17:05 06:00 06:00 WBC RBC Hgb Hct MCV MCH MCHC RDW Plt Count MPV PT INR APTT Sodium 134 Potassium 3.5 L Chloride 97 L Carbon Dioxide 28 Anion Gap 13 BUN 7 Creatinine 0.7 Est GFR ( Amer) > 60 Est GFR (Non-Af Amer) > 60 Random Glucose 129 H Calcium 8.1 L Magnesium 1.8 Total Bilirubin 1.2 AST 103 H ALT 278 H Alkaline Phosphatase 121 Total Protein 6.6 Albumin 3.4 Globulin 3.2 Albumin/Globulin Ratio 1.1 Triglycerides 226 H Cholesterol 112 L LDL Cholesterol Direct < 30 HDL Cholesterol 39 Procalcitonin 0.09 L Urine Opiates Screen Negative Urine Methadone Screen Negative Ur Barbiturates Screen Negative Ur Phencyclidine Scrn Negative Ur Amphetamines Screen Negative U Benzodiazepines Scrn Negative U Oth Cocaine Metabols Negative U Cannabinoids Screen Positive H Hepatitis A IgM Ab Hep Bs Antigen Hep B Core IgM Ab Hepatitis C Antibody 09/22/16 09/22/16 09/22/16 07:00 07:00 07:00 WBC 10.1 D RBC 4.16 Hgb 12.3 Hct 37.4 MCV 89.9 MCH 29.6 MCHC 32.9 RDW 15.4 H Plt Count 216 MPV 9.1 PT 10.5 INR 0.97 APTT 27.3 Sodium Potassium Chloride Carbon Dioxide Anion Gap BUN Creatinine Est GFR ( Amer) Est GFR (Non-Af Amer) Random Glucose Calcium Magnesium Total Bilirubin AST ALT Alkaline Phosphatase Total Protein Albumin Globulin Albumin/Globulin Ratio Triglycerides Cholesterol LDL Cholesterol Direct HDL Cholesterol Procalcitonin Urine Opiates Screen Urine Methadone Screen Ur Barbiturates Screen Ur Phencyclidine Scrn Ur Amphetamines Screen U Benzodiazepines Scrn U Oth Cocaine Metabols U Cannabinoids Screen Hepatitis A IgM Ab Negative Hep Bs Antigen Negative Hep B Core IgM Ab Negative Hepatitis C Antibody Negative
--- NOTE | 2016-09-22 17:17 | CARD ---
APPROVED REPORT EKG Measurement Heart [id number] <Conclusion> Sinus tachycardia Possible Left atrial enlargement Borderline ECG
[2016-09-22 18:12] VITALS: BP 108/78; PULSE 83; TEMP 98.6; O2SAT 98
--- NOTE | 2016-09-22 19:07 | CP.PCM.DIS ---
<Dexter Yancey - Last Filed: 09/22/16 19:07> Provider - Provider Date of Admission: 09/21/16 16:48 Attending physician: Gregg Milian MD Primary care physician: Gregg Milian MD Consults: GI- Dr. Singh Psych- Dr. Jacobo Time Spent in preparation of Discharge (in minutes): 40 Hospital Course - Lab Results Lab Results: Most Recent Lab Values WBC 10.1 10^3/ul (4.5-11.0) D 09/22/16 07:00 RBC 4.16 10^6/uL (3.5-6.1) 09/22/16 07:00 Hgb 12.3 gm/dL (12.0-16.0) 09/22/16 07:00 Hct 37.4 % (36.0-48.0) 09/22/16 07:00 MCV 89.9 fL (80.0-105.0) 09/22/16 07:00 MCH 29.6 pg (25.0-35.0) 09/22/16 07:00 MCHC 32.9 g/dl (31.0-37.0) 09/22/16 07:00 RDW 15.4 % (11.5-14.5) H 09/22/16 07:00 Plt Count 216 10^3/uL (120.0-450.0) 09/22/16 07:00 MPV 9.1 fl (7.0-11.0) 09/22/16 07:00 Gran % 88.2 % (50.0-68.0) H 09/21/16 10:48 Lymph % (Auto) 8.3 % (22.0-35.0) L 09/21/16 10:48 [place] % (Auto) 3.4 % (1.0-6.0) 09/21/16 10:48 Eos % (Auto) 0.0 % (1.5-5.0) L 09/21/16 10:48 Baso % (Auto) 0.1 % (0.0-3.0) 09/21/16 10:48 Gran # 15.48 (1.4-6.5) H 09/21/16 10:48 Lymph # 1.5 (1.2-3.4) 09/21/16 10:48 [place] # 0.6 (0.1-0.6) 09/21/16 10:48 Eos # 0.0 (0.0-0.7) 09/21/16 10:48 Baso # 0.02 K/mm3 (0.0-2.0) 09/21/16 10:48 PT 10.5 Seconds (9.9-11.8) 09/22/16 07:00 INR 0.97 (0.93-1.08) 09/22/16 07:00 APTT 27.3 Seconds (23.7-30.8) 09/22/16 07:00 Sodium 134 mmol/L (132-148) 09/22/16 06:00 Potassium 3.5 mmol/L (3.6-5.0) L 09/22/16 06:00 Chloride 97 mmol/L (98-107) L 09/22/16 06:00 Carbon Dioxide 28 mmol/L (21-33) 09/22/16 06:00 Anion Gap 13 (10-20) 09/22/16 06:00 BUN 7 mg/dL (7-21) 09/22/16 06:00 Creatinine 0.7 mg/dL (0.5-1.4) 09/22/16 06:00 Est GFR ( Amer) > 60 09/22/16 06:00 Est GFR (Non-Af Amer) > 60 09/22/16 06:00 Random Glucose 129 mg/dL (70-110) H 09/22/16 06:00 Calcium 8.1 mg/dL (8.4-10.5) L 09/22/16 06:00 Magnesium 1.8 mg/dL (1.7-2.2) 09/22/16 06:00 Total Bilirubin 1.2 mg/dL (0.2-1.3) 09/22/16 06:00 AST 103 U/L (15-39) H 09/22/16 06:00 ALT 278 U/L (7-56) H 09/22/16 06:00 Alkaline Phosphatase 121 U/L (38-133) 09/22/16 06:00 Total Protein 6.6 g/dL (5.8-8.3) 09/22/16 06:00 Albumin 3.4 g/dL (3.0-4.8) 09/22/16 06:00 Globulin 3.2 gm/dL 09/22/16 06:00 Albumin/Globulin Ratio 1.1 (1.1-1.8) 09/22/16 06:00 Triglycerides 226 mg/dL (35-160) H 09/22/16 06:00 Cholesterol 112 mg/dL (130-200) L 09/22/16 06:00 LDL Cholesterol Direct < 30 mg/dL (0-129) 09/22/16 06:00 HDL Cholesterol 39 mg/dL (29-60) 09/22/16 06:00 Lipase 16 U/L (23-300) L 09/21/16 10:48 Procalcitonin 0.09 NG/ML (0.19-0.49) L 09/22/16 06:00 Urine Color yellow (YELLOW) 09/21/16 14:43 Urine Appearance Clear (CLEAR) 09/21/16 14:43 Urine pH 7.5 (4.7-8.0) 09/21/16 14:43 Ur Specific [place] 1.015 (1.005-1.035) 09/21/16 14:43 Urine Protein 100 mg/dL (<30 mg/dL) H 09/21/16 14:43 Urine Glucose (UA) Negative mg/dL (NEGATIVE) 09/21/16 14:43 Urine Ketones 40 mg/dL (NEGATIVE) H 09/21/16 14:43 Urine Blood Negative (NEGATIVE) 09/21/16 14:43 Urine Nitrate Negative (NEGATIVE) 09/21/16 14:43 Urine Bilirubin Negative (NEGATIVE) 09/21/16 14:43 Urine Urobilinogen 1.0 E.U./dL (<1 E.U./dL) H 09/21/16 14:43 Ur Leukocyte Esterase Negative [place]/uL (NEGATIVE) 09/21/16 14:43 Urine RBC TEST NOT PERFORMED 09/21/16 14:43 Urine WBC 5 - 10 /hpf (0-6) 09/21/16 14:43 Ur Epithelial Cells 10 - 12 /hpf (0-5) 09/21/16 14:43 Amorphous Sediment Small 09/21/16 14:43 Urine Bacteria Trace (NEG) 09/21/16 14:43 Urine Opiates Screen Negative (NEGATIVE) 09/21/16 17:05 Urine Methadone Screen Negative (NEGATIVE) 09/21/16 17:05 Ur Barbiturates Screen Negative (NEGATIVE) 09/21/16 17:05 Ur Phencyclidine Scrn Negative (NEGATIVE) 09/21/16 17:05 Ur Amphetamines Screen Negative (NEGATIVE) 09/21/16 17:05 U Benzodiazepines Scrn Negative (NEGATIVE) 09/21/16 17:05 U Oth Cocaine Metabols Negative (NEGATIVE) 09/21/16 17:05 U Cannabinoids Screen Positive (NEGATIVE) H 09/21/16 17:05 Alcohol, Quantitative 19 mg/dL (0-10) H 09/21/16 10:48 Hepatitis A IgM Ab Negative (NEGATIVE) 09/22/16 07:00 Hep Bs Antigen Negative (NEGATIVE) 09/22/16 07:00 Hep B Core IgM Ab Negative (NEGATIVE) 09/22/16 07:00 Hepatitis C Antibody Negative (NEGATIVE) 09/22/16 07:00 - Hospital Course Hospital Course: Patient is a 50 year old female with PMHx of chronic Alcohol abuse who was admitted to [facility] [place] for Alcohol withdrawal, possible Alcoholic Gastritis, back pain , mildly elevated white count (afebrile), depressive symptoms and Elevated LFT s. CT of abdomen was consistent with esophagitis/gastritis. GI was consulted. Patient was started on IV banana bag and Ativan taper. Patient symptoms have resolved. Elevated LFTs likely 2/2 Alcohol abuse trended down. Leukocytosis resolved. Psychiatry was consulted for depressive symptoms. Patient was counseled on alcohol and smoking cessation. Patient was sent home with Ativan Taper and short-term course of Toradol for her back pain. She is to follow up with PMD of her choice. Patient is agreeable to plan and medications. Patient seen, reviewed, and discussed with attending. Dexter Yanecy PGY-1 Discharge Exam - Head Exam Head Exam: ATRAUMATIC, NORMOCEPHALIC - Respiratory Exam Respiratory Exam: Clear to PA & Lateral, NORMAL BREATHING PATTERN. absent: Rales, Rhonchi, Wheezes, Respiratory Distress, Stridor - Cardiovascular Exam Cardiovascular Exam: RRR, +S1, +S2. absent: JVD - GI/Abdominal Exam GI & Abdominal Exam: Normal Bowel Sounds, Soft. absent: Organomegaly, Tenderness - Extremities Exam Additional comments: no pedal edema - Neurological Exam Neurological exam: Alert, Oriented x3 - Psychiatric Exam Psychiatric exam: Normal Affect, Normal Mood Discharge Plan - Discharge Medications Prescriptions: LORazepam [Ativan] 1 mg PO Q8 PRN #5 tab PRN Reason: Agitation traMADol [Ultram] 25 mg PO TID #9 tab - Follow Up Plan Condition: STABLE Disposition: HOME/ ROUTINE Instructions: Abuse of Alcohol (DC), Acute Low Back Pain (DC) Additional Instructions: 1.Take the Tramadol 1 tablet no more than 3 times a day for back pain 2.For Withdrawal symptoms take Ativan as instructed below: Day 1 - 1mg Tablet every 8 hours Day 2 - 1 mg Tablet every 12 hours Day 3 - 1 mg Tablet once on that day. 3.Follow up with your primary physician for a visit and referral to GI doctor for an upper endoscopy (EGD) Referrals: Gregg Milian MD [Primary Care Provider] - <Gregg Milian - Last Filed: 09/23/16 07:25> Provider - Provider Date of Admission: 09/21/16 16:48 Attending physician: Gregg Milian MD Primary care physician: Gregg Milian MD Hospital Course - Lab Results Lab Results: Most Recent Lab Values WBC 10.1 10^3/ul (4.5-11.0) D 09/22/16 07:00 RBC 4.16 10^6/uL (3.5-6.1) 09/22/16 07:00 Hgb 12.3 gm/dL (12.0-16.0) 09/22/16 07:00 Hct 37.4 % (36.0-48.0) 09/22/16 07:00 MCV 89.9 fL (80.0-105.0) 09/22/16 07:00 MCH 29.6 pg (25.0-35.0) 09/22/16 07:00 MCHC 32.9 g/dl (31.0-37.0) 09/22/16 07:00 RDW 15.4 % (11.5-14.5) H 09/22/16 07:00 Plt Count 216 10^3/uL (120.0-450.0) 09/22/16 07:00 MPV 9.1 fl (7.0-11.0) 09/22/16 07:00 Gran % 88.2 % (50.0-68.0) H 09/21/16 10:48 Lymph % (Auto) 8.3 % (22.0-35.0) L 09/21/16 10:48 [place] % (Auto) 3.4 % (1.0-6.0) 09/21/16 10:48 Eos % (Auto) 0.0 % (1.5-5.0) L 09/21/16 10:48 Baso % (Auto) 0.1 % (0.0-3.0) 09/21/16 10:48 Gran # 15.48 (1.4-6.5) H 09/21/16 10:48 Lymph # 1.5 (1.2-3.4) 09/21/16 10:48 [place] # 0.6 (0.1-0.6) 09/21/16 10:48 Eos # 0.0 (0.0-0.7) 09/21/16 10:48 Baso # 0.02 K/mm3 (0.0-2.0) 09/21/16 10:48 PT 10.5 Seconds (9.9-11.8) 09/22/16 07:00 INR 0.97 (0.93-1.08) 09/22/16 07:00 APTT 27.3 Seconds (23.7-30.8) 09/22/16 07:00 Sodium 134 mmol/L (132-148) 09/22/16 06:00 Potassium 3.5 mmol/L (3.6-5.0) L 09/22/16 06:00 Chloride 97 mmol/L (98-107) L 09/22/16 06:00 Carbon Dioxide 28 mmol/L (21-33) 09/22/16 06:00 Anion Gap 13 (10-20) 09/22/16 06:00 BUN 7 mg/dL (7-21) 09/22/16 06:00 Creatinine 0.7 mg/dL (0.5-1.4) 09/22/16 06:00 Est GFR ( Amer) > 60 09/22/16 06:00 Est GFR (Non-Af Amer) > 60 09/22/16 06:00 Random Glucose 129 mg/dL (70-110) H 09/22/16 06:00 Calcium 8.1 mg/dL (8.4-10.5) L 09/22/16 06:00 Magnesium 1.8 mg/dL (1.7-2.2) 09/22/16 06:00 Total Bilirubin 1.2 mg/dL (0.2-1.3) 09/22/16 06:00 AST 103 U/L (15-39) H 09/22/16 06:00 ALT 278 U/L (7-56) H 09/22/16 06:00 Alkaline Phosphatase 121 U/L (38-133) 09/22/16 06:00 Total Protein 6.6 g/dL (5.8-8.3) 09/22/16 06:00 Albumin 3.4 g/dL (3.0-4.8) 09/22/16 06:00 Globulin 3.2 gm/dL 09/22/16 06:00 Albumin/Globulin Ratio 1.1 (1.1-1.8) 09/22/16 06:00 Triglycerides 226 mg/dL (35-160) H 09/22/16 06:00 Cholesterol 112 mg/dL (130-200) L 09/22/16 06:00 LDL Cholesterol Direct < 30 mg/dL (0-129) 09/22/16 06:00 HDL Cholesterol 39 mg/dL (29-60) 09/22/16 06:00 Lipase 16 U/L (23-300) L 09/21/16 10:48 Procalcitonin 0.09 NG/ML (0.19-0.49) L 09/22/16 06:00 Urine Color yellow (YELLOW) 09/21/16 14:43 Urine Appearance Clear (CLEAR) 09/21/16 14:43 Urine pH 7.5 (4.7-8.0) 09/21/16 14:43 Ur Specific [place] 1.015 (1.005-1.035) 09/21/16 14:43 Urine Protein 100 mg/dL (<30 mg/dL) H 09/21/16 14:43 Urine Glucose (UA) Negative mg/dL (NEGATIVE) 09/21/16 14:43 Urine Ketones 40 mg/dL (NEGATIVE) H 09/21/16 14:43 Urine Blood Negative (NEGATIVE) 09/21/16 14:43 Urine Nitrate Negative (NEGATIVE) 09/21/16 14:43 Urine Bilirubin Negative (NEGATIVE) 09/21/16 14:43 Urine Urobilinogen 1.0 E.U./dL (<1 E.U./dL) H 09/21/16 14:43 Ur Leukocyte Esterase Negative [place]/uL (NEGATIVE) 09/21/16 14:43 Urine RBC TEST NOT PERFORMED 09/21/16 14:43 Urine WBC 5 - 10 /hpf (0-6) 09/21/16 14:43 Ur Epithelial Cells 10 - 12 /hpf (0-5) 09/21/16 14:43 Amorphous Sediment Small 09/21/16 14:43 Urine Bacteria Trace (NEG) 09/21/16 14:43 Urine Opiates Screen Negative (NEGATIVE) 09/21/16 17:05 Urine Methadone Screen Negative (NEGATIVE) 09/21/16 17:05 Ur Barbiturates Screen Negative (NEGATIVE) 09/21/16 17:05 Ur Phencyclidine Scrn Negative (NEGATIVE) 09/21/16 17:05 Ur Amphetamines Screen Negative (NEGATIVE) 09/21/16 17:05 U Benzodiazepines Scrn Negative (NEGATIVE) 09/21/16 17:05 U Oth Cocaine Metabols Negative (NEGATIVE) 09/21/16 17:05 U Cannabinoids Screen Positive (NEGATIVE) H 09/21/16 17:05 Alcohol, Quantitative 19 mg/dL (0-10) H 09/21/16 10:48 Hepatitis A IgM Ab Negative (NEGATIVE) 09/22/16 07:00 Hep Bs Antigen Negative (NEGATIVE) 09/22/16 07:00 Hep B Core IgM Ab Negative (NEGATIVE) 09/22/16 07:00 Hepatitis C Antibody Negative (NEGATIVE) 09/22/16 07:00 Attending/Attestation - Attestation I have personally seen and examined this patient.: Yes I have fully participated in the care of the patient.: Yes I have reviewed all pertinent clinical information, including history, physical exam and plan: Yes Notes (Text): 09/22/16 50 year old female with past medical history of chronic alcohol abuse who presented with alcohol withdrawal and depressed mood. She was started on ativan prn and banana bag. She was seen by psychiatrist. The following day her symptoms improved. She has no tremor and her gait is steady. She reported chronic back pain for which she is on tramadol. She had elevated LFTs likely secondary to ETOH abuse. Hepatitis panel was negative. She had a CT abd/ pelvis which showed thickened esophagus/gastric wall suggestive of esophagitis/ gastritis. She was seen by GI who recommended PPI and outpatient EGD. Patient is discharged home to follow up with her pmd. Follow up with GI for elective EGD. Continue with PPI. Counselled on alcohol abstinence. Follow up with psychiatrist or with [facility]. Gregg Milian MD Hospitalist.
--- NOTE | 2016-09-23 11:36 | CP.PCM.PCO ---
Physician Communication Note - Physician Communication Note Physician Communication Note: pt was d/c, no imminent danger to self or others, could be f/u AA meetings
== END 2016-09-22 18:16 | disposition home or self-care (01) ==
LOC: ED 10:01 → ERH 16:48 → 3RSO 18:33
PROVIDERS: ADMIT Internal Medicine; ATTEND Internal Medicine
DX: F10.239 Alcohol dependence with withdrawal, unspecified (principal); D72.829 Elevated white blood cell count, unspecified; E11.9 Type 2 diabetes mellitus without complications; F12.90 Cannabis use, unspecified, uncomplicated; F17.210 Nicotine dependence, cigarettes, uncomplicated; G89.29 Other chronic pain; I10 Essential (primary) hypertension; K21.0 Gastro-esophageal reflux disease with esophagitis; Z80.0 Family history of malignant neoplasm of digestive organs; Z82.49 Family history of ischemic heart disease and other diseases of the circulatory system; K29.20 Alcoholic gastritis without bleeding; Y90.0 Blood alcohol level of less than 20 mg/100 ml; K76.0 Fatty (change of) liver, not elsewhere classified; Z56.0 Unemployment, unspecified; F19.94 Other psychoactive substance use, unspecified with psychoactive substance-induced mood disorder; G40.909 Epilepsy, unspecified, not intractable, without status epilepticus; F32.89 Other specified depressive episodes
CPT/HCPCS: 36415; 71010; 74176; 80053; 80061; 80074; 80320; 80324; 80345; 80346; 80349; 80353; 80358; 80361; 81001; 83690; 83735; 83992; 84145; 85025; 85027; 85610; 85730; 87086; 87181; 93005; 96365; 96366; 96367; 96375; 96376; 97116; 97162; 99285; C9113; G0378; G8978; G8979; J0696; J2060; J2270; J2405; J3411; J3480; J7040; J7070

== ENCOUNTER 2017-04-08 03:28 | Inpatient (IN) | payer MEDICAID, OTHER ==
[2017-04-08 03:45] VITALS: BMI 30.7
[2017-04-08] MEDS ORDERED: Morphine 5 MG/ML SYRINGE IVP STA (03:52)
--- NOTE | 2017-04-08 03:55 | ED PDOC ---
Arrival/HPI - General Chief Complaint: Alcohol Ingestion Time Seen by Provider: 04/08/17 03:40 Historian: Patient - History of Present Illness Narrative History of Present Illness (Text): 04/08/17 03:40 Celeste Pickard is a 51 year old female, whose past medical history includes hypertension, who presents to the emergency department complaining of chest pain and abdominal pain. Patient reports she has been drinking alcohol for the past two weeks and notes vomiting as well. Patient denies shortness of breath, headache, vision changes, fever, or other complaints. Time/Duration: > week Symptom Onset: Gradual Symptom Course: Unchanged Past Medical History - Provider Review Nursing Documentation Reviewed: Yes - Infectious Disease Hx of Infectious Diseases: None - Cardiac Hx Cardiac Disorders: Yes Hx Hypertension: Yes - Pulmonary Hx Respiratory Disorders: Yes Hx Bronchitis: Yes - Neurological Hx Neurological Disorder: Yes Hx Seizures: Yes - Renal Hx Renal Disorder: No - Hematological/Oncological Hx Cancer: No - Integumentary Hx Dermatological Disorder: No - Musculoskeletal/Rheumatological Hx Falls: No - Gastrointestinal Other/Comment: never had EGD or Colon - Genitourinary/Gynecological Hx Genitourinary Disorders: No - Psychiatric Hx Psychophysiologic Disorder: No Hx Substance Use: Yes - Surgical History Hx Orthopedic Surgery: Yes (20 YEARS) - Anesthesia Hx Anesthesia: Yes Hx Anesthesia Reactions: No Hx Malignant Hyperthermia: No - Suicidal Assessment Feels Threatened In Home Enviroment: No Family/Social History - Physician Review Nursing Documentation Reviewed: Yes Family/Social History: Unknown Family HX Smoking Status: Light Smoker < 10 Cigarettes Daily Hx Alcohol Use: Yes Hx Substance Use: Yes Substance used: MARAJUANA Allergies/Home Meds Allergies/Adverse Reactions: Allergies No Known Allergies Allergy (Verified 09/21/16 10:31) Review of Systems - Review of Systems Constitutional: absent: Fevers Eyes: absent: Vision Changes Respiratory: absent: SOB Cardiovascular: Chest Pain Gastrointestinal: Abdominal Pain, Vomiting. absent: Diarrhea Genitourinary Female: absent: Dysuria Musculoskeletal: absent: Back Pain Neurological: absent: Headache Hemo/Lymphatic: absent: Easy Bleeding Physical Exam Vital Signs Temp Pulse Resp BP Pulse Ox 04/08/17 06:53 97.8 F 105 H 18 116/92 H 96 Pain Distress: None Mental Status: Positive for: Alert and Oriented X 3 - Systems Exam Head: Present: Atraumatic, Normocephalic Pupils: Present: PERRL Extroacular Muscles: Present: EOMI Conjunctiva: Present: Normal Mouth: Present: Moist Mucous Membranes Respiratory/Chest: Present: Clear to Auscultation, Good Air Exchange. No: Respiratory Distress, Accessory Muscle Use Cardiovascular: Present: Regular Rate and Rhythm, Normal S1, S2. No: Murmurs Abdomen: Present: Tenderness (left upper quadrant), Normal Bowel Sounds. No: Distention, Peritoneal Signs Upper Extremity: Present: Normal Inspection, Normal ROM, NORMAL PULSES, Neurovascularly Intact, Capillary Refill < 2s. No: Cyanosis, Edema Lower Extremity: Present: Normal Inspection, NORMAL PULSES, Normal ROM, Neurovascularly Intact, Capillary Refill < 2 s. No: Edema, Cyanosis, Tenderness , Swelling, Erythema Neurological: Present: GCS=15, CN II-XII Intact, Speech Normal Skin: Present: Warm, Dry, Normal Color. No: Rashes Psychiatric: Present: Alert, Oriented x 3, Normal Insight, Normal Concentration Medical Decision Making ED Course and Treatment: 04/08/17 Impression: 51 year old female with left upper quadrant tenderness, complaining of abdominal and chest pain. pt admits to drinking ETOH for two weeks straight and has episodes of vomiting. Plan: -- EKG -- Labs -- Morphine, Protonix, Zofran, Sodium Chloride -- Urinalysis -- Reassess and disposition EKG sinus tachycardia rate of [address] segment changes Progress Notes:case discussed with pesticide use medical coordinator and Dr.g pabon 04/08/17 06:33 - Lab Interpretations Lab Results: 04/08/17 04:43 04/08/17 04:43 Lab Results 04/08/17 04:43: Alcohol, Quantitative 169 H 04/08/17 04:43: Sodium 148, Potassium 2.7 L* D, Chloride 90 L, Carbon Dioxide 18 L, Anion Gap 42 H, BUN 15, Creatinine 1.0, Est GFR ( Amer) > 60, Est GFR (Non-Af Amer) 59, Random Glucose 77, Calcium 9.5, Total Bilirubin 0.6, AST 61 H D, ALT 89 H, Alkaline Phosphatase 129 H, Total Protein 9.0 H, Albumin 5.1 H , Globulin 3.8, Albumin/Globulin Ratio 1.3, Lipase 30 04/08/17 04:43: PT 11.4, INR 1.00, APTT 26.1 04/08/17 04:43: WBC 19.6 H D, RBC 4.57, Hgb 13.8, Hct 41.4, MCV 90.6, MCH 30.2, MCHC 33.3, RDW 15.2 H, Plt Count 457 H, MPV 10.0, Gran % 85.6 H, Lymph % (Auto) 9.0 L, [place] % (Auto) 5.1, Eos % (Auto) 0.0 L, Baso % (Auto) 0.3, Gran # 16.82 H , Lymph # (Auto) 1.8, [place] # (Auto) 1.0 H, Eos # (Auto) 0.0, Baso # (Auto) 0.05 04/08/17 04:40: Magnesium 2.3 H, Troponin I < 0.01 I have reviewed the lab results: Yes - RAD Interpretation Radiology Orders: 04/08/17 05:28 CHEST PORTABLE [RAD] Stat - EKG Interpretation Interpreted by ED Physician: Yes Type: 12 lead EKG - Medication Orders Current Medication Orders: Discontinued Medications Folic Acid (Folic Acid) 1 mg PO DAILY [facility] Last Admin: 04/09/17 09:53 Dose: 1 mg Sodium Chloride (Sodium Chloride 0.9%) 1,000 mls @ 1,000 mls/hr IV .Q1H [facility]ISITO Last Admin: 04/08/17 08:34 Dose: 1,000 mls/hr eMAR Start Stop Document 04/08/17 08:34 JFR (Rec: 04/08/17 08:34 JFR [id number]) Intravenous Solution Start Date 04/08/17 Start Time 08:34 Potassium Chloride (Potassium Chloride 20 Meq/100 Ml) 20 meq in 100 mls @ 50 mls/hr IVPB Q2H [facility] Stop: 04/08/17 09:29 Last Admin: 04/08/17 08:33 Dose: 50 mls/hr eMAR Start Stop Document 04/08/17 08:33 JFR (Rec: 04/08/17 08:33 JFR [id number]) Intravenous Solution Start Date 04/08/17 Start Time 08:33 Multivitamins/Vitamin C 10 ml/Thiamine HCl 100 mg/ Folic Acid 1 mg/ Sodium Chloride 1,011.2 mls @ 100 mls/hr IV .[id number] ONE Stop: 04/08/17 18:26 Last Admin: 04/08/17 09:50 Dose: 100 mls/hr eMAR Start Stop Document 04/08/17 09:50 JFR (Rec: 04/08/17 09:50 [id number]) Intravenous Solution Start Date 04/08/17 Start Time 09:50 Multivitamins/Vitamin C 10 ml/Thiamine HCl 100 mg/ Folic Acid 1 mg/ Sodium Chloride 1,011.2 mls @ 75 mls/hr IV .[id number] ONE Stop: 04/08/17 21:48 Last Admin: 04/08/17 15:06 Dose: Lorazepam (Ativan) 2 mg IVP ONCE ONE PRN Reason: Protocol Stop: 04/08/17 05:58 Last Admin: 04/08/17 06:18 Dose: 2 mg IVP Administration Document 04/08/17 06:18 SS (Rec: 04/08/17 06:19 SS [id number]) Charges for Administration # of IVP Administrations 1 Lorazepam (Ativan) 2 mg IVP Q6 PRN; Protocol PRN Reason: Symptoms of alcohol withdrawl Last Admin: 04/08/17 09:30 Dose: 2 mg IVP Administration Document 04/08/17 09:30 JFR (Rec: 04/08/17 09:30 [id number]) Charges for Administration # of IVP Administrations 1 Behavioural Document 04/08/17 09:30 JFR (Rec: 04/08/17 09:30 [id number]) Maintenance Maintenance Dose No Nonmedicinal Nonmedicinal Interventions Therapeutic Communication Behavior Behavior for Medication: Anxiety Re-Assess: Reassess Psych Meds Document 04/08/17 10:00 JFR (Rec: 04/08/17 10:17 [id number]) Reassess Psych Med Effective Lorazepam (Ativan) 2 mg IVP Q4H [facility] PRN Reason: Protocol Last Admin: 04/09/17 12:12 Dose: Lorazepam (Ativan) 1 mg IVP Q2H PRN; Protocol PRN Reason: Symptoms of alcohol withdrawl Last Admin: 04/08/17 15:20 Dose: 1 mg IVP Administration Document 04/08/17 15:20 JFR (Rec: 04/08/17 15:21 JFR [id number][place] Charges for Administration # of IVP Administrations 1 Behavioural Document 04/08/17 15:20 JFR (Rec: 04/08/17 15:21 JFR [facility] [id number]) Maintenance Maintenance Dose No Nonmedicinal Nonmedicinal Interventions Activity Behavior Behavior for Medication: Anxiety Behavior Comment yelling, agitated Re-Assess: Reassess Psych Meds Document 04/08/17 15:50 JFR (Rec: 04/08/17 16:01 JFR CHRISTAL) Reassess Psych Med Ineffective-LIP notifed Lorazepam (Ativan) 2 mg IVP Q8H [facility] PRN Reason: Protocol Last Admin: 04/09/17 12:14 Dose: 2 mg IVP Administration Document 04/09/17 12:14 [facility] (Rec: 04/09/17 12:14 [facility] [place] [id number]) Charges for Administration # of IVP Administrations 1 Behavioural Document 04/09/17 12:14 SOUSV (Rec: 04/09/17 12:14 [facility] [place] [id number]) Maintenance Maintenance Dose No Nonmedicinal Nonmedicinal Interventions Redirect Activity Behavior Behavior for Medication: Anxiety Re-Assess: Reassess Psych Meds Document 04/09/17 12:44 SOUSV (Rec: 04/09/17 15:00 SOUSV CHRISATL) Reassess Psych Med Effective Lorazepam (Ativan) 1 mg IVP Q4H PRN; Protocol PRN Reason: Symptoms of alcohol withdrawl Morphine Sulfate (Morphine) 2 mg IVP STAT STA Stop: 04/08/17 03:53 Last Admin: 04/08/17 04:42 Dose: 2 mg IVP Administration Document 04/08/17 04:42 SS (Rec: 04/08/17 04:42 SS [id number]) Charges for Administration # of IVP Administrations 1 Morphine Sulfate (Morphine) 2 mg IVP Q6 PRN PRN Reason: Pain, moderate (4-7) Morphine Sulfate (Morphine) 2 mg IVP Q6 PRN PRN Reason: Pain, moderate (4-7) Last Admin: 04/09/17 02:25 Dose: 2 mg IVP Administration Document 04/09/17 02:25 SRE (Rec: 04/09/17 02:25 SRE [id number]) Charges for Administration # of IVP Administrations 1 Multivitamins/Minerals (Therapeutic-M Tab) 1 tab PO 0800 [facility] Ondansetron HCl (Zofran Inj) 4 mg IVP STAT STA Stop: 04/08/17 03:53 Last Admin: 04/08/17 04:42 Dose: 4 mg IVP Administration Document 04/08/17 04:42 SS (Rec: 04/08/17 04:42 SS [id number]) Charges for Administration # of IVP Administrations 1 Ondansetron HCl (Zofran Inj) 4 mg IVP STAT STA Stop: 04/08/17 05:58 Last Admin: 04/08/17 06:18 Dose: 4 mg IVP Administration Document 04/08/17 06:18 SS (Rec: 04/08/17 06:18 SS [id number]) Charges for Administration # of IVP Administrations 1 Ondansetron HCl (Zofran Inj) 4 mg IVP Q6 [facility] Ondansetron HCl (Zofran Inj) 4 mg IVP Q6 PRN PRN Reason: Nausea/Vomiting Last Admin: 04/08/17 22:39 Dose: 4 mg IVP Administration Document 04/08/17 22:39 SRE (Rec: 04/08/17 22:39 [id number] Charges for Administration # of IVP Administrations 1 Pantoprazole Sodium (Protonix Inj) 40 mg IVP ONCE STA Stop: 04/08/17 03:53 Last Admin: 04/08/17 04:42 Dose: 40 mg IVP Administration Document 04/08/17 04:42 SS (Rec: 04/08/17 04:42 SS [id number]) Charges for Administration # of IVP Administrations 1 Pantoprazole Sodium (Protonix Ec Tab) 40 mg PO 0600,1600 [facility] Last Admin: 04/09/17 17:26 Dose: Not Given Non-Admin Reason: Patient Refused Pneumococcal Polyvalent Vaccine (Pneumovax 23 Vaccine) 0.5 ml IM .ONCE ONE Stop: 04/08/17 10:45 Potassium Chloride (K-Dur 20 Meq Er Tab) 40 meq PO STAT STA Stop: 04/08/17 20:26 Last Admin: 04/08/17 22:39 Dose: 40 meq Thiamine HCl (Vitamin B1 Tab) 100 mg PO DAILY [facility] Last Admin: 04/09/17 09:53 Dose: 100 mg - Feliibe Statement The provider has reviewed the documentation as recorded by the Vinnie Zafar Provider Vinnie Attestation: All medical record entries made by the Feliibstephan were at my direction and personally dictated by me. I have reviewed the chart and agree that the record accurately reflects my personal performance of the history, physical exam, medical decision making, and the department course for this patient. I have also personally directed, reviewed, and agree with the discharge instructions and disposition. Disposition/Present on Arrival - Present on Arrival Any Indicators Present on Arrival: No History of DVT/PE: No History of Uncontrolled Diabetes: No Urinary Catheter: No History of Decub. Ulcer: No History Surgical Site Infection Following: None - Disposition Have Diagnosis and Disposition been Completed?: Yes Diagnosis: Abdominal pain, Alcohol withdrawal syndrome Disposition: HOSPITALIZED Disposition Time: 06:00 Condition: GOOD
[2017-04-08] MEDS: Sodium Chloride 0.9% 1,000 ML IV SCH ×2 (04:44→08:34)
[2017-04-08 05:20] LABS: BASO # 0.05 K/mm3 (0.0-2.0); BASO % 0.3 % (0.0-3.0); GRAN # 16.82 (1.4-6.5); GRAN % 85.6 % (50.0-68.0); HEMOGLOBIN 13.8 g/dL (12.0-16.0); LYMPH # 1.8 (1.2-3.4); MEAN CELL VOLUME 90.6 fl (80.0-105.0); MEAN CORPUSCULAR HEMOGLOBIN 30.2 pg (25.0-35.0); MEAN CORPUSCULAR HGB CONC 33.3 g/dl (31.0-37.0); MONO % 5.1 % (1.0-6.0); RBC 4.57 10^6/uL (3.5-6.1); RED CELL DISTRIBUTION WIDTH 15.2 % (11.5-14.5); WHITE BLOOD COUNT 19.6 10^3/ul (4.5-11.0)
[2017-04-08 05:25] LABS: ALB/GLOB RATIO 1.3 (1.1-1.8); ALBUMIN 5.1 g/dL (3.0-4.8); ALT/SGPT 89 U/L (7-56); AST/SGOT 61 U/L (14-36); BLOOD UREA NITROGEN 15 mg/dL (7-21); CALCIUM 9.5 mg/dL (8.4-10.5); GFR AFRICAN-AMERICAN > 60; GFR NON-AFRICAN AMERICAN 59; LIPASE 30 U/L (23-300)
[2017-04-08 05:27] LABS: PARTIAL THROMBOPLASTIN TIME 26.1 Seconds (25.1-36.5); PROTHROMBIN TIME 11.4 SECONDS (9.4-12.5)
[2017-04-08] MEDS ORDERED: Multivitamin (MVI) 10 ML, Thiamine 100 MG, Folic Acid 1 MG in Sodium Chloride 0.9% 1,00... IV ONE ×3 (06:26→13:53)
[2017-04-08] MEDS ORDERED: Morphine 2 mg/ml ISec IVP PRN (06:29)
--- NOTE | 2017-04-08 06:39 | CP.PCM.HP ---
History of Present Illness - History of Present Illness History of Present Illness: 50 year old female who presented to the ED with complaint of chest pain, lower back pain, abdominal pain, and EtOH abuse. Patient states she usually binge drinks and drank 3 liters of alcohol today. She began drinking early on in the day to about midnight. She states the chest pain is sharp in nature and is located in middle of her chest. The pain is reproducible on palpation and states it began when she vomited and she vomited two times. The vomit was non bloody and non bilious. Patient states she has been drinking because she is depressed. Along with the chest pain patient has diffuse abdominal pain in all four quadrants and lower back pain which began yesterday as well. She did not take anything for the pain but she usually takes only Tylenol PM and prilosec at home. Patient denies any shortness of breath, fever, chills, diarrhea, sore throat, sick contacts or any other complaints at this time. PMH: Alcohol abuse PSH: Pin in foot over 30 years ago Allergies: NKDA Fam Hx: Pancreatic Cancer (Father-Alive), Cancer (Paternal Uncle-), Cancer (Paternal Aunt- Alive Social Hx: Binge drinks once in a while, Marijuana, Smokes pack a day for about 30 years. 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 Present on Admission - Present on Admission Any Indicators Present on Admission: No Review of Systems - Constitutional Constitutional: absent: Anorexia, Chills, Fever, Headache, Malaise, Weakness - EENT Eyes: absent: Change in Vision - Cardiovascular Cardiovascular: Chest Pain. absent: Dyspnea, Dyspnea on Exertion, Irregular Heart Rhythm - Respiratory Respiratory: absent: Cough, Dyspnea - Gastrointestinal Gastrointestinal: Abdominal Pain, Nausea, Vomiting. absent: Change in Bowel Habits - Genitourinary Genitourinary: absent: Change in Urinary Stream - Musculoskeletal Musculoskeletal: Back Pain - Neurological Neurological: absent: Disequilibrium, Dizziness, Paresthesias, Weakness Past Patient History - Infectious Disease Hx of Infectious Diseases: None - Past Medical History & Family History Past Medical History?: Yes - Past Social History Smoking Status: Light Smoker < 10 Cigarettes Daily - CARDIAC Hx Cardiac Disorders: Yes Hx Hypertension: Yes - PULMONARY Hx Respiratory Disorders: Yes Hx Bronchitis: Yes - NEUROLOGICAL Hx Neurological Disorder: Yes Hx Seizures: Yes - RENAL Hx Chronic Kidney Disease: No - HEMATOLOGICAL/ONCOLOGICAL Hx Cancer: No - INTEGUMENTARY Hx Dermatological Problems: No - MUSCULOSKELETAL/RHEUMATOLOGICAL Hx Falls: No - GASTROINTESTINAL Other/Comment: never had EGD or Colon - GENITOURINARY/GYNECOLOGICAL Hx Genitourinary Disorders: No - PSYCHIATRIC Hx Psychophysiologic Disorder: No Hx Substance Use: Yes - SURGICAL HISTORY Hx Orthopedic Surgery: Yes (20 YEARS) - ANESTHESIA Hx Anesthesia: Yes Hx Anesthesia Reactions: No Hx Malignant Hyperthermia: No Meds Allergies/Adverse Reactions: Allergies Allergy/AdvReac Type Severity Reaction Status Date / Time No Known Allergies Allergy Verified 09/21/16 10:31 Physical Exam - Constitutional Appears: Non-toxic, No Acute Distress - Head Exam Head Exam: ATRAUMATIC, NORMAL INSPECTION, NORMOCEPHALIC - Eye Exam Eye Exam: EOMI, Normal appearance - ENT Exam ENT Exam: Mucous Membranes Moist - Neck Exam Neck exam: Negative for: Tenderness - Respiratory Exam Respiratory Exam: Clear to Auscultation Bilateral, NORMAL BREATHING PATTERN - Cardiovascular Exam Cardiovascular Exam: REGULAR RHYTHM, +S1, +S2 Additional comments: midsternal chest pain worse with palpation - GI/Abdominal Exam GI & Abdominal Exam: Normal Bowel Sounds, Soft, Tenderness Additional comments: tenderness in all 4 quadrants - Back Exam Back exam: tenderness. absent: CVA tenderness (L), CVA tenderness (R) Additional comments: lower lumbar tenderness biltaterally - Neurological Exam Neurological exam: Alert, Oriented x3 - Psychiatric Exam Psychiatric exam: Depressed - Skin Skin Exam: Normal Color, Warm Results - Labs Result Diagrams: 04/08/17 04:43 04/08/17 04:43 Assessment & Plan - Assessment and Plan (Free Text) Assessment: 50 year old female who presented to the ED with complaint of chest pain, lower back pain, abdominal pain, and EtOH abuse. Patient states she usually binge drinks and drank 3 liters of alcohol today. Plan: 1. Chest Pain-doubt cardiac origin -EKG pending official read -Troponin ordered, follow up x3 -protonix given in ED 2. Alcohol Abuse -Ativan -CIWA protocol -Seizure precautions -Aspiration precaution -magnesium pending -banana bag 3. Abdominal Pain likely secondary to Alcoholic Gastritis with Vomiting -CT Scan of abdomen pending -Morphine -NPO -lipase pending -protonix given in ED -Zofran 4. Hypokalemia -K 2.7 -repleted -continue to monitor 5. Leukocytosis -WBC 19.6 -Procal -Urine/Blood Cultures pending 6. Elevated LFTs -hep panel panel pending 7. Depressive Symptoms/Etoh Abuse -Psych Consulted, follow recs 8. Back Pain -morphine given in ED -lipase pending -CT abdomen pending GI/DVT -protonix -SCD
[2017-04-08 07:45] LABS: MAGNESIUM 2.3 mg/dL (1.7-2.2)
[2017-04-08 07:57] LABS: TROPONIN I < 0.01 ng/mL
[2017-04-08] MEDS: Morphine 5 MG/ML SYRINGE IVP PRN ×3 (08:32→20:02)
--- NOTE | 2017-04-08 09:15 | CT ---
PROCEDURE: CT Abdomen and Pelvis without intravenous contrast HISTORY: Abdominal Pain COMPARISON: 09/21/2016 CT TECHNIQUE: Without contrast.. Contrast Dose: Radiation dose: Total exam DLP = 500 mGy-cm. This CT exam was performed using one or more of the following dose reduction techniques: Automated exposure control, adjustment of the mA and/or kV according to patient size, and/or use of iterative reconstruction technique. FINDINGS: LOWER THORAX: There is a moderate-sized hiatal hernia. LIVER: There is moderate to severe fatty infiltration of the liver. This is unchanged GALLBLADDER AND BILE DUCTS: Unremarkable. PANCREAS: Unremarkable. No gross lesion or ductal dilatation. SPLEEN: Unremarkable. ADRENALS: Unremarkable. No mass. KIDNEYS AND URETERS: Unremarkable. No hydronephrosis. No solid mass. VASCULATURE: Unremarkable. No aortic aneurysm. BOWEL: Submucosal fatty deposition can be seen in the cecum. This is probably due to chronic inflammatory bowel disease. This is unchanged APPENDIX: Unremarkable. Normal appendix. PERITONEUM: Unremarkable. No free fluid. No free air. LYMPH NODES: Unremarkable. No enlarged lymph nodes. BLADDER: Unremarkable. REPRODUCTIVE: Unremarkable. BONES: No acute fracture. OTHER FINDINGS: None. IMPRESSION: Moderate size hiatal hernia. Severe fatty infiltration of the liver
--- NOTE | 2017-04-08 10:32 | RAD ---
HISTORY: cp COMPARISON: 09/21/2016 FINDINGS: LUNGS: No active pulmonary disease. PLEURA: No significant pleural effusion identified, no pneumothorax apparent. CARDIOVASCULAR: Normal. OSSEOUS STRUCTURES: No significant abnormalities. VISUALIZED UPPER ABDOMEN: Normal. OTHER FINDINGS: None. IMPRESSION: No active disease.
[2017-04-08] MEDS ORDERED: Influenza Vaccine 60 mcg/0.5 mL SYR (4YR UP) IM ONE (10:44)
[2017-04-08] MEDS ORDERED: Pneumococcal 23-Valent Vaccine IM ONE (10:44)
--- NOTE | 2017-04-08 13:03 | CARD ---
APPROVED REPORT EKG Measurement Heart [id number] SD [id number] [id number] <Conclusion> Sinus tachycardia Biatrial enlargement High Voltage. Tall P 2,3,AVF Suggest Ch. Lung Disease.
[2017-04-08] MEDS: Pantoprazole 40 mg EC Tab PO SCH (16:07)
[2017-04-08 17:24] LABS: HEPATITIS A IGM NEGATIVE (NEGATIVE); HEPATITIS B CORE AB NEGATIVE (NEGATIVE)
[2017-04-08 17:27] LABS: BLOOD UREA NITROGEN 11 mg/dL (7-21); CALCIUM 8.6 mg/dL (8.4-10.5); GFR AFRICAN-AMERICAN > 60; GFR NON-AFRICAN AMERICAN > 60
[2017-04-08 17:28] LABS: TROPONIN I 0.02 ng/mL
[2017-04-08 17:36] LABS: HEPATITIS C ANTIBODY NEGATIVE (NEGATIVE)
[2017-04-08 17:43] LABS: HEMOGLOBIN 11.5 g/dL (12.0-16.0); MEAN CELL VOLUME 90.8 fl (80.0-105.0); MEAN CORPUSCULAR HEMOGLOBIN 29.4 pg (25.0-35.0); MEAN CORPUSCULAR HGB CONC 32.4 g/dl (31.0-37.0); MEAN PLATELET VOLUME 9.2 fl (7.0-11.0); RBC 3.91 10^6/uL (3.5-6.1); RED CELL DISTRIBUTION WIDTH 15.1 % (11.5-14.5); WHITE BLOOD COUNT 14.5 10^3/ul (4.5-11.0)
[2017-04-08 17:48] LABS: HEPATITIS B SURFACE AG Negative (NEGATIVE)
[2017-04-08] MEDS ORDERED: Potassium Chloride 20 mEq ER Tab PO STA (20:25)
--- NOTE | 2017-04-09 02:14 | CP.PCM.PN ---
Subjective - Date & Time of Evaluation Date of Evaluation: 04/09/17 Time of Evaluation: 02:13 - Subjective Subjective: S: It was requested by nurse to insert a heparin lock. Patient has no complaints now. Medical record was reviewed. O: Last Vital Signs 3 Temp 99 F 04/09/17 01:00 Pulse 120 H 04/09/17 01:00 Resp 18 04/09/17 01:00 BP 154/90 H 04/09/17 01:00 Pulse Ox 99 04/09/17 01:00 Awake, alert, not in acute distress. LUNGS:Normal breathing pattern. A:Poor venous access. P: # 22 angiocath was inserted in right middle finger. Objective - Vital Signs/Intake and Output Vital Signs (last 24 hours): Temp Pulse Resp BP Pulse Ox 99 F 120 H 18 154/90 H 99 04/09/17 01:00 04/09/17 01:00 04/09/17 01:00 04/09/17 01:00 04/09/17 01:00 - Medications Medications: Current Medications Lorazepam (Ativan) 2 mg IVP Q4H [facility]ISITO PRN Reason: Protocol Last Admin: 04/08/17 22:40 Dose: 2 mg Lorazepam (Ativan) 1 mg IVP Q2H PRN; Protocol PRN Reason: Symptoms of alcohol withdrawl Last Admin: 04/08/17 15:20 Dose: 1 mg Morphine Sulfate (Morphine) 2 mg IVP Q6 PRN PRN Reason: Pain, moderate (4-7) Last Admin: 04/08/17 20:02 Dose: 2 mg Ondansetron HCl (Zofran Inj) 4 mg IVP Q6 PRN PRN Reason: Nausea/Vomiting Last Admin: 04/08/17 22:39 Dose: 4 mg Pantoprazole Sodium (Protonix Ec Tab) 40 mg PO 0600,1600 LUISITO Last Admin: 04/08/17 16:07 Dose: 40 mg - Labs Labs: 04/08/17 17:37 04/08/17 16:45 PT 11.4 SECONDS (9.4-12.5) 04/08/17 04:43 INR 1.00 (0.93-1.08) 04/08/17 04:43 APTT 26.1 Seconds (25.1-36.5) 04/08/17 04:43
[2017-04-09] MEDS: Morphine 5 MG/ML SYRINGE IVP PRN (02:25)
[2017-04-09] MEDS: Pantoprazole 40 mg EC Tab PO SCH ×2 (05:52→17:26)
[2017-04-09 07:11] LABS: BASO # 0.02 K/mm3 (0.0-2.0); BASO % 0.2 % (0.0-3.0); EOS # 0.1 (0.0-0.7); EOS % 0.4 % (1.5-5.0); GRAN # 8.46 (1.4-6.5); GRAN % 66.2 % (50.0-68.0); HEMOGLOBIN 12.5 g/dL (12.0-16.0); LYMPH # 3.5 (1.2-3.4); LYMPH % 27.3 % (22.0-35.0); MEAN CELL VOLUME 90.7 fl (80.0-105.0); MEAN CORPUSCULAR HEMOGLOBIN 29.2 pg (25.0-35.0); MEAN CORPUSCULAR HGB CONC 32.2 g/dl (31.0-37.0); MEAN PLATELET VOLUME 9.6 fl (7.0-11.0); MONO # 0.8 (0.1-0.6); MONO % 5.9 % (1.0-6.0); RBC 4.28 10^6/uL (3.5-6.1); RED CELL DISTRIBUTION WIDTH 15.2 % (11.5-14.5); WHITE BLOOD COUNT 12.8 10^3/ul (4.5-11.0)
[2017-04-09 07:53] LABS: ALB/GLOB RATIO 1.2 (1.1-1.8); ALT/SGPT 50 U/L (7-56); AST/SGOT 44 U/L (14-36); BLOOD UREA NITROGEN 9 mg/dL (7-21); CALCIUM 9.6 mg/dL (8.4-10.5); GFR AFRICAN-AMERICAN > 60; GFR NON-AFRICAN AMERICAN > 60
--- NOTE | 2017-04-09 09:16 | CON ---
DATE: 04/08/2017 She is being seen today for consultation. PRESENTATION: The patient is a 51-year-old female, seen at bedside. The patient was admitted to the hospital on 04/08/2017. She came to the Emergency Room complaining of chest pain, lower back pain, abdominal pain, and alcohol abuse. She is a binge drinker and had consumed 3 liters of alcohol today. Consult was called due to concerns regarding depression and alcohol abuse. The patient was cooperative with the interview. The patient indicates that she came to the hospital for her back hurting. She indicates that at this time she is living in her father's home and taking care of him because he has Alzheimer's. She has been unemployed for a year and half, she got laid-off, she used to paint houses. She has a girlfriend who helps out sometimes; however, dealing with her father is very stressful, as he has Alzheimer's and requires a lot of supervision. He currently is in [facility] with a bedsore while she is here. Psychiatrically, the patient indicates she saw a Psychiatrist once at [facility], said she went for depression, she was not given any medication and she stopped going. When questioned as to whether or not she has an alcohol problem, she indicates" I do not have a problem "just now and then I get depressed on an edge and then I drink a few bottles". I asked her how often this happens and she says "not much." The patient denies ever being psychiatrically hospitalized, having suicide attempts or ever being suicidal. Medically, she indicates, she is fairly healthy. She currently has back pain. The alcohol, she indicates is something that happens sporadically, but lately she has been stressed out more and this is why this recently happened. She does smoke pot occasionally, indicates it calms her and soothes her and that is why she smokes it. She denies any use of past or current of any other illicit drug. Legally, she has never been arrested, never spent a night in half-way. She has never had a valid drivers licence so she has just never driven, never got any licence. FAMILY HISTORY OF MENTAL ILLNESS: The patient indicates she is the only one with any problem ''the patient grew up in [place], her parents stayed together," she is #3 of 7 siblings. One brother is , he hung himself. The patient is unaware of the circumstances surrounding that. He had been working, did not have a known drug history. There is no knowledge as to why he did this; however, he was found hanging. She indicates she had a good childhood. She did okay in school. She was involved in school activity. 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 She has 2 children, one who is 30 and other is 34 and 3 grandchildren. They all live locally and she has contact with them. She has been off and on involved with the father of her children and she currently still is involved with him. Her person closest to her is her sister. She is a Islam, has not been going to sabianism, but she does not appear to have a big support system at this point in time. VITAL SIGNS: The patient's current vital signs are temperature of 98.1, pulse of 124 and blood pressure of 165/104. LABORATORY DATA: Her current lab results include white blood cell count of 19.6. MENTAL STATUS EXAM: The patient is alert and oriented x3. Her eye contact is fair. Her behavior is cooperative. Her speech, rate and volume are within normal limits. Mood is blunted. Affect is constricted. Thoughts are goal directed, but simplistic. She denies being suicidal or homicidal. Denies the presence of hallucinations, delusions or paranoia. Her concentration and her focus she indicates are good. Her memory both short and long-term appears to be adequate. Her appetite is normal however she is having trouble sleeping due to the pain currently. DIAGNOSTIC IMPRESSION: Alcohol use disorder, severe, binge type, ongoing and depressive disorder, unspecified. PLAN: The patient denies being suicidal or homicidal and does not appear to be in any imminent danger of hurting herself or others. 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 She is willing to take some referrals for psychiatric support as well as caregiver groups. She is willing to go AA and is not willing to go into any kind of rehab situation. I will follow this patient tomorrow and give her appropriate referrals. Thank you for the consult. Marjroie Aldridge APN REGINALD
--- NOTE | 2017-04-09 13:54 | CP.PCM.PN ---
<Mark,Mark - Last Filed: 04/09/17 22:33> Subjective - Date & Time of Evaluation Date of Evaluation: 04/09/17 Time of Evaluation: 11:54 - Subjective Subjective: Hussain Flores PGY1 IM Progress Note Patient was seen and examined at bedside. She denies any current fevers/chills, n/v/d, abdominal pain, chest pain or shortness of breath. Patient is not tremulous, and denies any suicidal ideations or any hallucinations (visual or auditory). Patient only complaining of back pain that she has chronically, and states that her chest burning has improved with the medications we are giving her here. Objective - Vital Signs/Intake and Output Vital Signs (last 24 hours): Temp Pulse Resp BP Pulse Ox 98.9 F 105 H 17 138/86 92 L 04/09/17 12:00 04/09/17 12:00 04/09/17 12:00 04/09/17 12:00 04/09/17 12:00 Intake and Output: 04/09/17 04/09/17 06:59 18:59 Intake Total 440 Output Total 600 Balance -160 - Medications Medications: Current Medications Folic Acid (Folic Acid) 1 mg PO DAILY [facility] Last Admin: 04/09/17 09:53 Dose: 1 mg Lorazepam (Ativan) 2 mg IVP Q8H [facility] PRN Reason: Protocol Last Admin: 04/09/17 12:14 Dose: 2 mg Lorazepam (Ativan) 1 mg IVP Q4H PRN; Protocol PRN Reason: Symptoms of alcohol withdrawl Morphine Sulfate (Morphine) 2 mg IVP Q6 PRN PRN Reason: Pain, moderate (4-7) Last Admin: 04/09/17 02:25 Dose: 2 mg Multivitamins/Minerals (Therapeutic-M Tab) 1 tab PO 0800 [facility] Ondansetron HCl (Zofran Inj) 4 mg IVP Q6 PRN PRN Reason: Nausea/Vomiting Last Admin: 04/08/17 22:39 Dose: 4 mg Pantoprazole Sodium (Protonix Ec Tab) 40 mg PO 0600,1600 [facility] Last Admin: 04/09/17 05:52 Dose: 40 mg Thiamine HCl (Vitamin B1 Tab) 100 mg PO DAILY [facility] Last Admin: 04/09/17 09:53 Dose: 100 mg - Labs Labs: 04/09/17 06:00 04/09/17 06:00 PT 11.4 SECONDS (9.4-12.5) 04/08/17 04:43 INR 1.00 (0.93-1.08) 04/08/17 04:43 APTT 26.1 Seconds (25.1-36.5) 04/08/17 04:43 - Constitutional Appears: Well, Non-toxic, No Acute Distress - Head Exam Head Exam: NORMAL INSPECTION - Eye Exam Eye Exam: EOMI, Normal appearance - ENT Exam ENT Exam: Mucous Membranes Moist - Neck Exam Neck Exam: Normal Inspection - Respiratory Exam Respiratory Exam: Clear to Ausculation Bilateral, NORMAL BREATHING PATTERN. absent: Rales, Wheezes, Respiratory Distress - Cardiovascular Exam Cardiovascular Exam: RRR, +S1, +S2 - GI/Abdominal Exam GI & Abdominal Exam: Soft, Normal Bowel Sounds. absent: Distended, Tenderness - Extremities Exam Extremities Exam: Full ROM - Back Exam Back Exam: NORMAL INSPECTION - Neurological Exam Neurological Exam: Alert, Awake, Oriented x3 - Psychiatric Exam Psychiatric exam: Normal Affect, Normal Mood - Skin Skin Exam: Normal Color, Warm Assessment and Plan - Assessment and Plan (Free Text) Assessment: 51 year old AA female who presented to the ED with complaint of chest pain, lower back pain, abdominal pain, and EtOH abuse. Patient states she usually binge drinks and drank 3 liters of alcohol today due to adjustment disorder vs depression due to her dad having surgery. Plan: 1. Chest Pain likely 2/2 gastritis 2/2 vomiting - EKG in ED showed sinus tachycardia , biatrial enlargement, high voltage - CXR was unremarkable - Troponin negative x3 - protonix helped, continue tx 2. Alcohol Abuse -Ativan -CIWA protocol -Seizure precautions -Aspiration precaution -MV, thiamine and folic acid 3. Abdominal Pain likely secondary to Alcoholic Gastritis with Vomiting -CT Scan of abdomen shows fatty liver -Morphine -advance diet as tolerated -lipase pending -protonix given in ED -Zofran 4. Hypokalemia -repleted -continue to monitor 5. Leukocytosis -WBC trending down -Procal low -Urine/Blood Cultures pending 6. Elevated LFTs -hep panel panel negative 7. Depressive Symptoms/Etoh Abuse -Psych Consulted, follow recs 8. Back Pain -morphine given in ED -lipase pending -CT abdomen pending GI/DVT -protonix -SCD Patient was seen, examined and discussed with attending, Dr. Moncho Flores PGY1 Pager # [phone] <Seferino Ivan B - Last Filed: 04/10/17 14:18> Objective - Vital Signs/Intake and Output Vital Signs (last 24 hours): Temp Pulse Resp BP Pulse Ox 97.5 F L 102 H 20 146/66 95 04/09/17 19:11 04/09/17 19:11 04/09/17 19:11 04/09/17 19:11 04/09/17 19:11 - Labs Labs: 04/09/17 06:00 04/09/17 06:00 PT 11.4 SECONDS (9.4-12.5) 04/08/17 04:43 INR 1.00 (0.93-1.08) 04/08/17 04:43 APTT 26.1 Seconds (25.1-36.5) 04/08/17 04:43 Attending/Attestation - Attestation I have personally seen and examined this patient.: Yes I have fully participated in the care of the patient.: Yes I have reviewed all pertinent clinical information, including history, physical exam and plan: Yes Notes (Text): I have seen and examined the patient at bedside. Agree with the above note with the following additions/ exceptions: Briefly this is 51 year old female with history of alcohol abuse who was admitted for generalized body aches and chest pain. ACS was ruled out. She was started on CIWA protocol and also started on MVI, thiamine, FA and banana bag. Alcohol counselling provided. Hep panel negative. Patient denies being depressed. Denies anxisty, suicidal ideation, visual or auditory hallucinations. Continue tapering doses of ativan. Upon discharge patient will follow up with Dr Jesus Romero. Dr Seferino Ivan
--- NOTE | 2017-04-09 18:22 | PN ---
DATE: 04/09/2017 SUBJECTIVE: She is being seen today for a followup consultation. PRESENTATION: The patient is a 51-year-old -Maur[place] female seen at bedside. Patient was originally admitted to the hospital on 04/08/2017 for complaining of chest pain and abdominal pain. She had been binge drinking alcohol for the past 2 weeks and vomiting. Consult was called due to concerns about patient's mood and her alcoholism. I saw patient yesterday in consultation. Patient has indicated the she did not feel she needed any specific treatment for her alcoholism. 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 She does have a limited support system. She has a girlfriend who is supportive of her, but she has the full care of her father which is a difficult task at this time. Patient today continues in pain. She is interested in the outpatient followups aforementioned that I gave her and indicates the willingness to follow up. PHYSICAL EXAMINATION VITAL SIGNS: Her current vital signs are temperature of 98.9, pulse of 105, blood pressure 138/86 which is down from this morning where it was 147/88 and O2 sat is 92. LABORATORY DATA: Her white blood cells continued to fall, yesterday her whites were 14.5, today it is 12.8 which certainly maybe making patient more comfortable as well. MENTAL STATUS EXAMINATION: The patient is alert and oriented x3. Her eye contact is fair. Her behavior is cooperative, but she was obviously uncomfortable in the bed. Mood is blunted. Affect is constricted. Thoughts are goal directed. She denies being suicidal or homicidal. Denies the presence of hallucinations, delusions, or paranoia. Her concentration and her focus she reports are difficult at times. Memory, both short and extermination supervisor, appears adequate. Her appetite and her sleep she reports are still difficult while in the hospital. DIAGNOSTIC IMPRESSION: Alcohol use disorder, sever, binge type, ongoing and depressive disorder, unspecified. PLAN: Patient denies being suicidal or homicidal, does not appear in any imminent danger of hurting herself or others. She has given a list of referrals on two mental health centers which are within patient's geographic area. She was additionally given a list of tar man meeting to the Alzheimer's association act now. Thirdly, she was also given a list of women's AA meetings which are local as well. Patient is interested in all of this and seems at this time willing to follow up. I will sign off on this patient. If there are any further needs, please contact us. The case has been reviewed with Dr. Marti. Thank you for this consult. Marjorie Aldridge APN
--- NOTE | 2017-04-09 19:12 | CP.PCM.DIS ---
<Hussain Flores - Last Filed: 04/09/17 22:25> Provider - Provider Date of Admission: 04/08/17 05:58 Attending physician: Seferino Ivan MD Primary care physician: Jesus Romero MD Time Spent in preparation of Discharge (in minutes): 40 Diagnosis - Discharge Diagnosis (1) Vomiting Status: Acute (2) Esophagitis Status: Chronic (3) Alcohol abuse Status: Chronic (4) Back pain Status: Chronic Hospital Course - Lab Results Lab Results: Micro Results 04/08/17 11:00 Blood Blood Culture - Preliminary NO GROWTH AFTER 24 HOURS Most Recent Lab Values WBC 12.8 10^3/ul (4.5-11.0) H 04/09/17 06:00 RBC 4.28 10^6/uL (3.5-6.1) 04/09/17 06:00 Hgb 12.5 g/dL (12.0-16.0) 04/09/17 06:00 Hct 38.8 % (36.0-48.0) 04/09/17 06:00 MCV 90.7 fl (80.0-105.0) 04/09/17 06:00 MCH 29.2 pg (25.0-35.0) 04/09/17 06:00 MCHC 32.2 g/dl (31.0-37.0) 04/09/17 06:00 RDW 15.2 % (11.5-14.5) H 04/09/17 06:00 Plt Count 307 10^3/uL (120.0-450.0) 04/09/17 06:00 MPV 9.6 fl (7.0-11.0) 04/09/17 06:00 Gran % 66.2 % (50.0-68.0) 04/09/17 06:00 Lymph % (Auto) 27.3 % (22.0-35.0) 04/09/17 06:00 Lander % (Auto) 5.9 % (1.0-6.0) 04/09/17 06:00 Eos % (Auto) 0.4 % (1.5-5.0) L 04/09/17 06:00 Baso % (Auto) 0.2 % (0.0-3.0) 04/09/17 06:00 Gran # 8.46 (1.4-6.5) H 04/09/17 06:00 Lymph # (Auto) 3.5 (1.2-3.4) H 04/09/17 06:00 Lander # (Auto) 0.8 (0.1-0.6) H 04/09/17 06:00 Eos # (Auto) 0.1 (0.0-0.7) 04/09/17 06:00 Baso # (Auto) 0.02 K/mm3 (0.0-2.0) 04/09/17 06:00 PT 11.4 SECONDS (9.4-12.5) 04/08/17 04:43 INR 1.00 (0.93-1.08) 04/08/17 04:43 APTT 26.1 Seconds (25.1-36.5) 04/08/17 04:43 Sodium 137 mmol/L (132-148) 04/09/17 06:00 Potassium 3.7 mmol/L (3.6-5.0) 04/09/17 06:00 Chloride 99 mmol/L (98-107) 04/09/17 06:00 Carbon Dioxide 30 mmol/L (21-33) 04/09/17 06:00 Anion Gap 13 (10-20) 04/09/17 06:00 BUN 9 mg/dL (7-21) 04/09/17 06:00 Creatinine 0.7 mg/dl (0.7-1.2) 04/09/17 06:00 Est GFR ( Amer) > 60 04/09/17 06:00 Est GFR (Non-Af Amer) > 60 04/09/17 06:00 Random Glucose 118 mg/dL (70-110) H 04/09/17 06:00 Calcium 9.6 mg/dL (8.4-10.5) 04/09/17 06:00 Magnesium 2.3 mg/dL (1.7-2.2) H 04/08/17 04:40 Total Bilirubin 0.9 mg/dL (0.2-1.3) 04/09/17 06:00 AST 44 U/L (14-36) H D 04/09/17 06:00 ALT 50 U/L (7-56) 04/09/17 06:00 Alkaline Phosphatase 100 U/L (38-126) 04/09/17 06:00 Troponin I 0.02 ng/mL 04/08/17 16:45 Total Protein 7.2 g/dL (5.8-8.3) 04/09/17 06:00 Albumin 4.0 g/dL (3.0-4.8) 04/09/17 06:00 Globulin 3.2 gm/dL 04/09/17 06:00 Albumin/Globulin Ratio 1.2 (1.1-1.8) 04/09/17 06:00 Lipase 30 U/L (23-300) 04/08/17 04:43 Procalcitonin < 0.05 NG/ML (0.19-0.49) L 04/08/17 11:00 Alcohol, Quantitative 169 mg/dL (0-10) H 04/08/17 04:43 Hepatitis A IgM Ab Negative (NEGATIVE) 04/08/17 11:00 Hep Bs Antigen Negative (NEGATIVE) 04/08/17 11:00 Hep B Core IgM Ab Negative (NEGATIVE) 04/08/17 11:00 Hepatitis C Antibody Negative (NEGATIVE) 04/08/17 11:00 - Hospital Course Hospital Course: Ms. Pickard is a 51year old AA female who presented to the ED with complaints of chest pain, lower back pain, abdominal pain, and EtOH abuse. Patient states she usually binge drinks and drank 3 liters of alcohol on the day prior to admission because she's depressed because her father is having a surgery done. Patient was evaluated and treated for ETOH withdrawal and depression vs adjustment disorder. CIWA protocol was enacted and patient received appropriated supplementation. CT Abdomen/Pelvis showed fatty liver. Leukocytosis and hypokalemia were noted. PRocal was low and ETOH level was elevated. Patient improved with protonix and was tolerating regular diet with no n/v or any abdominal pain. Patient is comfortable and is not withdrawing from alcohol. Patient wanted to leave AMA. She was instructed on the risk of leaving and improper withdrawal of ativan and the risk for seizures, falls, trauma, and continued gastritis. Patient still wanted to leave. PSych had seen the patient and provided her with more information for outpatient AA programs and other programs. PAtient will follow up with those programs. Discharge Exam - Head Exam Head Exam: NORMAL INSPECTION - Eye Exam Eye Exam: EOMI, Normal appearance, PERRL - ENT Exam ENT Exam: Mucous Membranes Moist - Neck Exam Neck exam: Normal Inspection - Respiratory Exam Respiratory Exam: NORMAL BREATHING PATTERN. absent: Rhonchi, Wheezes - Cardiovascular Exam Cardiovascular Exam: RRR, +S1, +S2 - GI/Abdominal Exam GI & Abdominal Exam: Normal Bowel Sounds, Soft. absent: Distended, Tenderness - Extremities Exam Extremities exam: full ROM, normal inspection - Back Exam Back exam: NORMAL INSPECTION - Neurological Exam Neurological exam: Alert, Normal Gait, Oriented x3 - Psychiatric Exam Psychiatric exam: Normal Affect, Normal Mood - Skin Skin Exam: Normal Color, Warm Discharge Plan - Follow Up Plan Condition: GOOD Disposition: AGAINST MEDICAL ADVICE Instructions: Alcohol Withdrawal (DC), Alcohol Dependence (GEN) Referrals: Jesus Romero MD [Primary Care Provider] - <Seferino Ivan - Last Filed: 04/10/17 14:20> Provider - Provider Date of Admission: 04/08/17 05:58 Attending physician: Seferino Ivan MD Primary care physician: Jesus Romero MD Hospital Course - Lab Results Lab Results: Micro Results 04/08/17 11:00 Blood Blood Culture - Preliminary NO GROWTH AFTER 48 HOURS Most Recent Lab Values WBC 12.8 10^3/ul (4.5-11.0) H 04/09/17 06:00 RBC 4.28 10^6/uL (3.5-6.1) 04/09/17 06:00 Hgb 12.5 g/dL (12.0-16.0) 04/09/17 06:00 Hct 38.8 % (36.0-48.0) 04/09/17 06:00 MCV 90.7 fl (80.0-105.0) 04/09/17 06:00 MCH 29.2 pg (25.0-35.0) 04/09/17 06:00 MCHC 32.2 g/dl (31.0-37.0) 04/09/17 06:00 RDW 15.2 % (11.5-14.5) H 04/09/17 06:00 Plt Count 307 10^3/uL (120.0-450.0) 04/09/17 06:00 MPV 9.6 fl (7.0-11.0) 04/09/17 06:00 Gran % 66.2 % (50.0-68.0) 04/09/17 06:00 Lymph % (Auto) 27.3 % (22.0-35.0) 04/09/17 06:00 Lander % (Auto) 5.9 % (1.0-6.0) 04/09/17 06:00 Eos % (Auto) 0.4 % (1.5-5.0) L 04/09/17 06:00 Baso % (Auto) 0.2 % (0.0-3.0) 04/09/17 06:00 Gran # 8.46 (1.4-6.5) H 04/09/17 06:00 Lymph # (Auto) 3.5 (1.2-3.4) H 04/09/17 06:00 Lander # (Auto) 0.8 (0.1-0.6) H 04/09/17 06:00 Eos # (Auto) 0.1 (0.0-0.7) 04/09/17 06:00 Baso # (Auto) 0.02 K/mm3 (0.0-2.0) 04/09/17 06:00 PT 11.4 SECONDS (9.4-12.5) 04/08/17 04:43 INR 1.00 (0.93-1.08) 04/08/17 04:43 APTT 26.1 Seconds (25.1-36.5) 04/08/17 04:43 Sodium 137 mmol/L (132-148) 04/09/17 06:00 Potassium 3.7 mmol/L (3.6-5.0) 04/09/17 06:00 Chloride 99 mmol/L (98-107) 04/09/17 06:00 Carbon Dioxide 30 mmol/L (21-33) 04/09/17 06:00 Anion Gap 13 (10-20) 04/09/17 06:00 BUN 9 mg/dL (7-21) 04/09/17 06:00 Creatinine 0.7 mg/dl (0.7-1.2) 04/09/17 06:00 Est GFR ( Amer) > 60 04/09/17 06:00 Est GFR (Non-Af Amer) > 60 04/09/17 06:00 Random Glucose 118 mg/dL (70-110) H 04/09/17 06:00 Calcium 9.6 mg/dL (8.4-10.5) 04/09/17 06:00 Magnesium 2.3 mg/dL (1.7-2.2) H 04/08/17 04:40 Total Bilirubin 0.9 mg/dL (0.2-1.3) 04/09/17 06:00 AST 44 U/L (14-36) H D 04/09/17 06:00 ALT 50 U/L (7-56) 04/09/17 06:00 Alkaline Phosphatase 100 U/L (38-126) 04/09/17 06:00 Troponin I 0.02 ng/mL 04/08/17 16:45 Total Protein 7.2 g/dL (5.8-8.3) 04/09/17 06:00 Albumin 4.0 g/dL (3.0-4.8) 04/09/17 06:00 Globulin 3.2 gm/dL 04/09/17 06:00 Albumin/Globulin Ratio 1.2 (1.1-1.8) 04/09/17 06:00 Lipase 30 U/L (23-300) 04/08/17 04:43 Procalcitonin < 0.05 NG/ML (0.19-0.49) L 04/08/17 11:00 Alcohol, Quantitative 169 mg/dL (0-10) H 04/08/17 04:43 Hepatitis A IgM Ab Negative (NEGATIVE) 04/08/17 11:00 Hep Bs Antigen Negative (NEGATIVE) 04/08/17 11:00 Hep B Core IgM Ab Negative (NEGATIVE) 04/08/17 11:00 Hepatitis C Antibody Negative (NEGATIVE) 04/08/17 11:00 Attending/Attestation - Attestation I have personally seen and examined this patient.: Yes I have fully participated in the care of the patient.: Yes I have reviewed all pertinent clinical information, including history, physical exam and plan: Yes Notes (Text): Patient is awake, alert and oriented to time, place and person. Denies depression or suicidal ideation. Patient verbalized undestanding. Complication of leaving AMA including seizure, stroke, syncope and was discussed.
[2017-04-09 19:14] VITALS: BP 146/66; PULSE 102; RESP 20; TEMP 97.5; O2SAT 95
[2017-04-10] MEDS ORDERED: Multivitamin With Minerals Tab PO SCH (08:00)
== END 2017-04-09 19:50 | disposition left against medical advice (07) | DRG 182 ==
LOC: ED 03:28 → ERH 05:58 → 3RSO 08:12
PROVIDERS: ADMIT Hospitalist; ATTEND Hospitalist
DX: K29.20 Alcoholic gastritis without bleeding (principal); K20.9 Esophagitis, unspecified; F10.10 Alcohol abuse, uncomplicated; E87.6 Hypokalemia; K76.0 Fatty (change of) liver, not elsewhere classified; Y90.6 Blood alcohol level of 120-199 mg/100 ml; F12.90 Cannabis use, unspecified, uncomplicated; F32.9 Major depressive disorder, single episode, unspecified; D72.829 Elevated white blood cell count, unspecified; M54.5 Low back pain; F17.210 Nicotine dependence, cigarettes, uncomplicated; Z80.9 Family history of malignant neoplasm, unspecified

== ENCOUNTER 2017-04-15 13:41 | Inpatient (IN) | payer OTHER ==
[2017-04-15 13:49] VITALS: BMI 26.3
[2017-04-15] MEDS ORDERED: Sodium Chloride 0.9% 1,000 ML IV STA ×3 (14:08→17:23)
--- NOTE | 2017-04-15 14:38 | ED PDOC ---
Arrival/HPI - General Chief Complaint: GI Problem Time Seen by Provider: 04/15/17 14:03 Historian: Patient - History of Present Illness Narrative History of Present Illness (Text): 51yo female with history of alcohol abuse, presents to ER today with complaints of multiple episodes of nausea and vomiting since this morning. She states the emesis is dark and bloody. She also reports an upper abdominal pain and mid- back pain associated with the vomiting. She reports feeling shaky as well. She denies any chest pain, shortness of breath, diarrhea, bloody stool or hematuria. No other complaints. Symptom Onset: Gradual Past Medical History - Provider Review Nursing Documentation Reviewed: Yes - Infectious Disease Hx of Infectious Diseases: None - Cardiac Hx Cardiac Disorders: Yes Hx Hypertension: Yes - Pulmonary Hx Respiratory Disorders: Yes Hx Bronchitis: Yes - Neurological Hx Neurological Disorder: Yes Hx Seizures: Yes - Renal Hx Renal Disorder: No - Hematological/Oncological Hx Cancer: No - Integumentary Hx Dermatological Disorder: No - Musculoskeletal/Rheumatological Hx Falls: No - Gastrointestinal Hx Gastroesophageal Reflux: Yes Hx Gastrointestinal Ulcer: Yes Other/Comment: never had EGD or Colon - Genitourinary/Gynecological Hx Genitourinary Disorders: No - Psychiatric Hx Psychophysiologic Disorder: No Hx Substance Use: Yes - Surgical History Hx Orthopedic Surgery: Yes (20 YEARS) - Anesthesia Hx Anesthesia: Yes Hx Anesthesia Reactions: No Hx Malignant Hyperthermia: No - Suicidal Assessment Feels Threatened In Home Enviroment: No Family/Social History - Physician Review Nursing Documentation Reviewed: Yes Family/Social History: No Known Family HX Smoking Status: Light Smoker < 10 Cigarettes Daily Hx Alcohol Use: Yes Frequency of alcohol use: Daily Hx Substance Use: Yes Substance used: MARAJUANA Allergies/Home Meds Allergies/Adverse Reactions: Allergies No Known Allergies Allergy (Verified 04/15/17 22:00) Review of Systems - Review of Systems Constitutional: Fatigue. absent: Fevers Eyes: absent: Vision Changes, Photophobia, Eye Pain ENT: absent: Hearing Changes, Sore Throat Respiratory: absent: SOB, Cough Cardiovascular: Palpitations. absent: Chest Pain, Edema, Calf Pain, LUONG Gastrointestinal: Abdominal Pain, Nausea, Vomiting, Hematochezia, Hematemesis. absent: Diarrhea, Food Intolerance Genitourinary Female: absent: Dysuria, Frequency Musculoskeletal: Back Pain. absent: Neck Pain Skin: absent: Rash Neurological: Dizziness. absent: Headache, Focal Weakness Endocrine: absent: Polyuria Hemo/Lymphatic: Easy Bleeding Physical Exam - Physical Exam Narrative Physical Exam (Text): Head: Atraumatic. Normocephalic. Eyes: PERRL. EOMI. Conjunctivae are not pale. ENT: Mucous membranes are moist and intact. Oropharynx is clear and symmetric. Neck: Supple. Full ROM. No JVD. No lymphadenopathy. Cardiovascular: Regular rate. Regular rhythm. No murmurs, rubs, or gallops. Distal pulses are 2+ and symmetric. Pulmonary/Chest: No evidence of respiratory distress. Clear to auscultation bilaterally. No wheezing, rales or rhonchi. Abdominal: Soft and non-distended. There is no tenderness. No rebound, guarding, or rigidity. No organomegaly. Good bowel sounds. Back: No CVA tenderness. Extremities: No edema. No cyanosis. No clubbing. Full range of motion in all extremities. No calf tenderness. Skin: Skin is warm and dry. No petechiae. No purpura. Neurological: Alert, awake, and oriented to person, place, time, and situation. Normal speech. Psychiatric: Good eye contact. Normal interaction, affect, and behavior. Vital Signs Reviewed: Yes Vital Signs Temp Pulse Resp BP Pulse Ox 04/15/17 17:04 116 H 18 122/75 96 04/15/17 16:09 120 H 18 120/73 96 04/15/17 15:27 118 H 18 119/74 95 04/15/17 13:48 99.2 F 136 H 18 134/76 95 Temperature: Afebrile Blood Pressure: Hypertensive Pulse: Tachycardic Appearance: Positive for: Ill-Appearing Pain Distress: Moderate Mental Status: Positive for: Alert and Oriented X 3 - Systems Exam Head: Present: Atraumatic Pupils: Present: PERRL Extroacular Muscles: Present: EOMI Conjunctiva: Present: Injected Mouth: Present: Moist Mucous Membranes. No: Dry Pharnyx: No: ERYTHEMA, EXUDATE Nose (Internal): Present: Normal Inspection, No Active Bleeding Neck: Present: Normal Range of Motion. No: Meningeal Signs, MIDLINE TENDERNESS Respiratory/Chest: Present: Clear to Auscultation. No: Respiratory Distress Cardiovascular: Present: Murmurs, Tachycardic Abdomen: Present: Tenderness, Distention. No: Peritoneal Signs, Rebound, Guarding, Feeding Tubes Rectal: Present: Melena Back: Present: Paraspinal Tenderness Upper Extremity: Present: Normal ROM, NORMAL PULSES Lower Extremity: Present: NORMAL PULSES, Neurovascularly Intact. No: CALF TENDERNESS Neurological: Present: GCS=15, Other (tremulous, hyperreflexive, no focal weakness or sensory deficits) Skin: Present: Diaphoretic Psychiatric: Present: Alert, Oriented x 3, Normal Insight, Normal Concentration , Anxious. No: Depressed Mood, Suicidal Ideation, Homicidal Ideation Medical Decision Making ED Course and Treatment: Impression: Patient with past history of alcohol abuse presents with history of fall, noted to have hematemesis. Plan: -- Labs -- IV fluids -- Rapid Flu -- Protonix 40 mg IVP once, then Protonix drip -- Ativan 1mg IVP -- Reassess and disposition Prior Visits: Notes and results from previous visits were reviewed. Patient was last seen in the emergency department on 04/08/17 adn was admitted for abdominal pain and alcohol withdrawal syndrome Progress Notes: On arrival patient was alert, oriented, reports getting dizzy and falling back wards, hitting her back this morning. She denies loss of consciousness, denies headache or chest pain or shortness of breath. Patient noted to be tachycardic on examination. She was witnessed to have two episodes of hematemesis in ED. States she was vomiting multiple times prior to arrival. Patient had iv line initiated and iv fluid bolus administered. Protonix iv bolus and drip initaited for suspicion of gastritis, esophageal varices, gi bleed. There is melena noted. Abdomen is mildly tender, no rebound or gurading. Back exam with no deformity, there is focal back pain on palpation with no crepitus and clear lungs. CXR reveals no pneumothorax or mediastinal air. I suspect tachycardia related to component of both alcohol withdrawal as ETOH level currently undetectable as well as gi bleed. She was not noted to be hypotensive while in ED. Ativan administered with improvement in tremulousness and tachycardia. Hgb noted to be 9, this is lower from her previous baseline. Patient with improved tachycardia however and BP remains stable. Abdomen soft with no peritoneal signs on re-exam. Prior CT abdomen/pelvis reviewed from previous admission. I requested ICU consultation, patient seen by Dr. Blue. Lactic acid and CT abdomen/pelvis for this visit requested and ordered. Follow-up of these findings endorsed to admitting team. Patient admitted to floor when lactic acid available. This result communicated to admitting team. I suspect elevated lactic acid from active gi bleed, doubt sepsis as afebrile, WBC unremarkable and tachycardia likely due to withdrawal. However iv antibiotics ordered as uti noted and this WAS COMMUNICATED TO ADMITTING TEAM. Patient had received iv fluids in the ED. Patient admitted to telemetry bed for gi bleed, alcohol withdrawal. In ED there was no further hematemesis noted for several hours. No peritoneal signs. Back pain appears muscular. 04/15/17 22:00 - Lab Interpretations Lab Results: 04/15/17 14:30 04/15/17 14:30 Lab Results 04/15/17 14:30: PT 11.3, INR 0.99 04/15/17 14:30: Beta HCG, Quant < 2.39 04/15/17 14:30: Alcohol, Quantitative < 10 04/15/17 14:30: Salicylates < 1 L, Acetaminophen < 10.0 L 04/15/17 14:30: Sodium 139, Potassium 3.5 L, Chloride 88 L, Carbon Dioxide 29, Anion Gap 25 H, BUN 32 H, Creatinine 0.7, Est GFR ( Amer) > 60, Est GFR ( Non-Af Amer) > 60, Random Glucose 136 H, Calcium 10.6 H, Magnesium 1.8, Total Bilirubin 0.5, AST 46 H, ALT 29, Alkaline Phosphatase 80, Lactate Dehydrogenase 487, Total Creatine Kinase 68, Troponin I 0.01 D, Total Protein 7.3, Albumin 4.1, Globulin 3.1, Albumin/Globulin Ratio 1.3, Amylase 55, Lipase 46 04/15/17 14:30: APTT 23.5 L 04/15/17 14:30: Influenza Typ A,B (EIA) Negative for flu a/b 04/15/17 14:30: WBC 10.5, RBC 3.29 L, Hgb 9.8 L D, Hct 29.2 L, MCV 88.8, MCH 29.8, MCHC 33.6, RDW 14.9 H, Plt Count 280, MPV 10.0, Gran % 77.3 H, Lymph % ( Auto) 13.9 L, [place] % (Auto) 8.4 H, Eos % (Auto) 0.3 L, Baso % (Auto) 0.1, Gran # 8.14 H, Lymph # (Auto) 1.5, [place] # (Auto) 0.9 H, Eos # (Auto) 0.0, Baso # ( Auto) 0.01 - RAD Interpretation Radiology Orders: 04/15/17 14:06 CHEST PORTABLE [RAD] Stat - EKG Interpretation EKG Interpretation (Text): EKG at 14:16 sinus tachycardia rate of [address] elevations Interpreted by ED Physician: Yes Type: 12 lead EKG - Medication Orders Current Medication Orders: Pantoprazole Sodium (Protonix 40mg Ivpb) 40 mg in 100 mls @ 20 mls/hr IVPB .Q5H LUISITO Last Admin: 04/15/17 15:07 Dose: 20 mls/hr eMAR Start Stop Document 04/15/17 15:07 GMD (Rec: 04/15/17 15:[address] [facility] [id number]) Intravenous Solution Start Date 04/15/17 Start Time 15:07 Lorazepam (Ativan) 2 mg IVP Q4H PRN; Protocol PRN Reason: Symptoms of alcohol withdrawl Morphine Sulfate (Morphine) 1 mg IVP Q4H PRN PRN Reason: Pain, moderate (4-7) Last Admin: 04/15/17 20:56 Dose: 1 mg MAR Pain Assessment Document 04/15/17 20:56 ST (Rec: 04/15/17 20:56 [place] [id number]) Pain Reassessment Is this a pain reassessment? No Sleep Is patient sleeping during reassessment? No Presence of Pain Presence of Pain Yes Pain Scale Used Pain Scale Used Numeric Location Upper or Lower Lower Pain Location Body Site Back Description Description Constant Intensity of Pain at present 9 Aggravating Factors Changing Position Alleviating Factors/Management Medication Techniques IVP Administration Document 04/15/17 20:56 ST (Rec: 04/15/17 20:56 [place] [id number]) Charges for Administration # of IVP Administrations 1 Ondansetron HCl (Zofran Inj) 4 mg IVP Q4H PRN PRN Reason: Nausea/Vomiting Discontinued Medications Sodium Chloride (Sodium Chloride 0.9%) 1,000 mls @ 1,000 mls/hr IV .Q1H STA Stop: 04/15/17 15:07 Last Admin: 02/07/18 14:42 Dose: 1,000 mls/hr eMAR Start Stop Document 04/15/17 14:42 GMD (Rec: 04/15/17 14:[address] [facility] [id number]) Intravenous Solution Start Date 04/15/17 Start Time 14:42 End Date 04/15/17 End time 15:42 Total Infusion Time 60 Multivitamins/Vitamin C 10 ml/Thiamine HCl 100 mg/ Folic Acid 1 mg/ Sodium Chloride 1,011.2 mls @ 1,000 mls/hr IV .Q1H1M ONE Stop: 04/15/17 16:08 Last Admin: 04/15/17 20:56 Dose: 1,000 mls/hr eMAR Start Stop Document 04/15/17 20:56 ST (Rec: 04/15/17 20:56 [place] [id number]) Intravenous Solution Start Date 04/15/17 Start Time 22:00 Sodium Chloride (Sodium Chloride 0.9%) 1,000 mls @ 1,000 mls/hr IV .Q1H STA Stop: 04/15/17 17:24 Last Admin: 04/15/17 17:22 Dose: 1,000 mls/hr eMAR Start Stop Document 04/15/17 17:22 GMD (Rec: 04/15/17 17:[address] [facility] [id number]) Intravenous Solution Start Date 04/15/17 Start Time 17:22 Octreotide Acetate 1,250 mcg/ (Sodium Chloride) 252.5 mls @ 5.05 mls/hr IV .Q24H LUISITO; 25 MCG/HR PRN Reason: Protocol Sodium Chloride (Sodium Chloride 0.9%) 1,000 mls @ 999 mls/hr IV .Q1H1M STA Stop: 04/15/17 18:23 Last Admin: 04/15/17 18:02 Dose: 999 mls/hr eMAR Start Stop Document 04/15/17 18:02 GMD (Rec: 04/15/17 18:[address] [facility] [id number]) Intravenous Solution Start Date 04/15/17 Start Time 18:02 End Date 04/15/17 End time 19:03 Total Infusion Time 61 Sodium Chloride (Sodium Chloride 0.9%) 2,000 mls @ 999 mls/hr IV .Q2H1M STA Stop: 04/15/17 19:23 Lorazepam (Ativan) 1 mg IVP ONCE ONE Stop: 04/15/17 14:09 Last Admin: 04/15/17 14:42 Dose: 1 mg IVP Administration Document 04/15/17 14:42 GMD (Rec: 04/15/17 14:42 GMD [id number]) Charges for Administration # of IVP Administrations 1 Lorazepam (Ativan) 1 mg IVP ONCE ONE Stop: 04/15/17 16:25 Last Admin: 04/15/17 17:21 Dose: 1 mg IVP Administration Document 04/15/17 17:21 GMD (Rec: 04/15/17 17:22 GMD [id number]) Charges for Administration # of IVP Administrations 1 Re-Assess: Reassess Psych Meds Document 04/15/17 19:00 ST (Rec: 04/15/17 20:48 [facility]) Reassess Psych Med Effective Pantoprazole Sodium (Protonix Inj) 40 mg IVP ONCE STA Stop: 04/15/17 14:08 Last Admin: 04/15/17 14:42 Dose: 40 mg IVP Administration Document 04/15/17 14:42 GMD (Rec: 04/15/17 14:42 GMD [id number]) Charges for Administration # of IVP Administrations 1 Potassium Chloride (K-Dur 20 Meq Er Tab) 40 meq PO STAT STA Stop: 04/15/17 15:47 Last Admin: 04/15/17 17:22 Dose: 40 meq - Scribe Statement The provider has reviewed the documentation as recorded by the Vinnie Burch Provider Scribe Attestation: All medical record entries made by the Vinnie were at my direction and personally dictated by me. I have reviewed the chart and agree that the record accurately reflects my personal performance of the history, physical exam, medical decision making, and the department course for this patient. I have also personally directed, reviewed, and agree with the discharge instructions and disposition. Disposition/Present on Arrival - Present on Arrival Any Indicators Present on Arrival: No History of DVT/PE: No History of Uncontrolled Diabetes: No Urinary Catheter: No History of Decub. Ulcer: No History Surgical Site Infection Following: None - Disposition Have Diagnosis and Disposition been Completed?: Yes Diagnosis: Alcohol withdrawal, Back pain, Abdominal pain, GI bleeding, Tachycardia Disposition: HOSPITALIZED Disposition Time: 17:00 Patient Plan: Admission, Telemetry Patient Problems: Current Active Problems Problem Status Onset Abdominal pain Acute Alcohol withdrawal Acute GI bleeding Acute Tachycardia Acute Back pain Chronic Condition: SERIOUS
[2017-04-15 14:52] LABS: BASO # 0.01 K/mm3 (0.0-2.0); BASO % 0.1 % (0.0-3.0); EOS % 0.3 % (1.5-5.0); GRAN # 8.14 (1.4-6.5); GRAN % 77.3 % (50.0-68.0); HEMOGLOBIN 9.8 g/dL (12.0-16.0); LYMPH # 1.5 (1.2-3.4); LYMPH % 13.9 % (22.0-35.0); MEAN CELL VOLUME 88.8 fl (80.0-105.0); MEAN CORPUSCULAR HEMOGLOBIN 29.8 pg (25.0-35.0); MEAN CORPUSCULAR HGB CONC 33.6 g/dl (31.0-37.0); MONO # 0.9 (0.1-0.6); MONO % 8.4 % (1.0-6.0); RBC 3.29 10^6/uL (3.5-6.1); RED CELL DISTRIBUTION WIDTH 14.9 % (11.5-14.5); WHITE BLOOD COUNT 10.5 10^3/ul (4.5-11.0)
[2017-04-15 15:06] LABS: ACETAMINOPHEN < 10.0 ug/ml (10.0-20.0); SALICYLATE < 1 mg/dL (2.0-20.0)
[2017-04-15] MEDS: Pantoprazole 40mg/100mL NS 40 MG/100 ML BAG IVPB SCH ×2 (15:07→21:39)
[2017-04-15 15:16] LABS: TROPONIN I 0.01 ng/mL
[2017-04-15 15:20] LABS: ALB/GLOB RATIO 1.3 (1.1-1.8); ALBUMIN 4.1 g/dL (3.0-4.8); ALT/SGPT 29 U/L (7-56); AMYLASE 55 U/L (35-125); AST/SGOT 46 U/L (14-36); BLOOD UREA NITROGEN 32 mg/dL (7-21); CALCIUM 10.6 mg/dL (8.4-10.5); GFR AFRICAN-AMERICAN > 60; GFR NON-AFRICAN AMERICAN > 60; LIPASE 46 U/L (23-300); MAGNESIUM 1.8 mg/dL (1.7-2.2)
--- NOTE | 2017-04-15 15:33 | RAD ---
HISTORY: chest pain COMPARISON: 04/08/2017 FINDINGS: LUNGS: No active pulmonary disease. PLEURA: No significant pleural effusion identified, no pneumothorax apparent. CARDIOVASCULAR: Normal. OSSEOUS STRUCTURES: No significant abnormalities. VISUALIZED UPPER ABDOMEN: Normal. OTHER FINDINGS: None. IMPRESSION: No active disease.
[2017-04-15 15:43] LABS: PROTHROMBIN TIME 11.3 SECONDS (9.4-12.5)
[2017-04-15 15:44] LABS: INR 0.99 (0.93-1.08)
[2017-04-15] MEDS ORDERED: Potassium Chloride 20 mEq ER Tab PO STA (15:46)
--- NOTE | 2017-04-15 16:38 | CP.PCM.CON ---
History of Present Illness - History of Present Illness History of Present Illness: CRITICAL CARE CONSULT NOTE HPI Patient is 51yo female with PMHx of heavy EtOH abuse, drinks 2-3 pints of Vodka per week, presents with nausea with bilious/coffee ground emesis, and melena x 1 day. Pt reports mild epigastric abdominal pain, and back pain. Pt notes she has vomited about 9-10 times. Denies fever, chills, cough, chest pain, palpitations, RYAN, dizziness. Pt notes she drank 2-3 pints of vodka last night. No other constitutional symptoms. PMHx as above PSHx as above Allergies NKDA Meds as per EMR ROS as above FHx NC Review of Systems - Review of Systems Review of Systems: As per HPI Past Patient History - Infectious Disease Hx of Infectious Diseases: None - Past Medical History & Family History Past Medical History?: Yes - Past Social History Smoking Status: Light Smoker < 10 Cigarettes Daily - CARDIAC Hx Cardiac Disorders: Yes Hx Hypertension: Yes - PULMONARY Hx Respiratory Disorders: Yes Hx Bronchitis: Yes - NEUROLOGICAL Hx Neurological Disorder: Yes Hx Seizures: Yes - RENAL Hx Chronic Kidney Disease: No - HEMATOLOGICAL/ONCOLOGICAL Hx Cancer: No - INTEGUMENTARY Hx Dermatological Problems: No - MUSCULOSKELETAL/RHEUMATOLOGICAL Hx Falls: No - GASTROINTESTINAL Hx Gastroesophageal Reflux: Yes Other/Comment: never had EGD or Colon - GENITOURINARY/GYNECOLOGICAL Hx Genitourinary Disorders: No - PSYCHIATRIC Hx Psychophysiologic Disorder: No Hx Substance Use: Yes - SURGICAL HISTORY Hx Orthopedic Surgery: Yes (20 YEARS) - ANESTHESIA Hx Anesthesia: Yes Hx Anesthesia Reactions: No Hx Malignant Hyperthermia: No Meds Allergies/Adverse Reactions: Allergies Allergy/AdvReac Type Severity Reaction Status Date / Time No Known Allergies Allergy Verified 09/21/16 10:31 - Medications Medications: Current Medications Pantoprazole Sodium (Protonix 40mg Ivpb) 40 mg in 100 mls @ 20 mls/hr IVPB .Q5H [facility] Last Admin: 04/15/17 15:07 Dose: 20 mls/hr Sodium Chloride (Sodium Chloride 0.9%) 1,000 mls @ 1,000 mls/hr IV .Q1H STA Stop: 04/15/17 17:24 Physical Exam - Constitutional Appears: Well, Non-toxic, No Acute Distress - Head Exam Head Exam: NORMAL INSPECTION - Eye Exam Eye Exam: Normal appearance - ENT Exam ENT Exam: Mucous Membranes Dry - Respiratory Exam Respiratory Exam: Clear to Auscultation Bilateral, NORMAL BREATHING PATTERN - Cardiovascular Exam Cardiovascular Exam: REGULAR RHYTHM, +S1, +S2 - GI/Abdominal Exam GI & Abdominal Exam: Normal Bowel Sounds, Soft, Tenderness - Extremities Exam Extremities exam: Positive for: normal inspection - Neurological Exam Neurological exam: Alert, CN II-XII Intact, Oriented x3 Additional comments: mild extension tremor Results - Vital Signs Recent Vital Signs: Last Vital Signs Temp 99.2 F 04/15/17 13:48 Pulse 120 H 04/15/17 16:09 Resp 18 04/15/17 16:09 BP 120/73 04/15/17 16:09 Pulse Ox 96 04/15/17 16:09 - Labs Result Diagrams: 04/15/17 14:30 04/15/17 14:30 Labs: Laboratory Results - last 24 hr 04/15/17 04/15/17 04/15/17 14:30 14:30 14:30 WBC 10.5 RBC 3.29 L Hgb 9.8 L D Hct 29.2 L MCV 88.8 MCH 29.8 MCHC 33.6 RDW 14.9 H Plt Count 280 MPV 10.0 Gran % 77.3 H Lymph % (Auto) 13.9 L [place] % (Auto) 8.4 H Eos % (Auto) 0.3 L Baso % (Auto) 0.1 Gran # 8.14 H Lymph # (Auto) 1.5 [place] # (Auto) 0.9 H Eos # (Auto) 0.0 Baso # (Auto) 0.01 PT INR APTT 23.5 L Sodium Potassium Chloride Carbon Dioxide Anion Gap BUN Creatinine Est GFR ( Amer) Est GFR (Non-Af Amer) Random Glucose Calcium Magnesium Total Bilirubin AST ALT Alkaline Phosphatase Lactate Dehydrogenase Total Creatine Kinase Troponin I Total Protein Albumin Globulin Albumin/Globulin Ratio Amylase Lipase Salicylates Acetaminophen Alcohol, Quantitative Influenza Typ A,B (EIA) Negative for flu a/b 04/15/17 04/15/17 04/15/17 14:30 14:30 14:30 WBC RBC Hgb Hct MCV MCH MCHC RDW Plt Count MPV Gran % Lymph % (Auto) [place] % (Auto) Eos % (Auto) Baso % (Auto) Gran # Lymph # (Auto) [place] # (Auto) Eos # (Auto) Baso # (Auto) PT INR APTT Sodium 139 Potassium 3.5 L Chloride 88 L Carbon Dioxide 29 Anion Gap 25 H BUN 32 H Creatinine 0.7 Est GFR ( Amer) > 60 Est GFR (Non-Af Amer) > 60 Random Glucose 136 H Calcium 10.6 H Magnesium 1.8 Total Bilirubin 0.5 AST 46 H ALT 29 Alkaline Phosphatase 80 Lactate Dehydrogenase 487 Total Creatine Kinase 68 Troponin I 0.01 D Total Protein 7.3 Albumin 4.1 Globulin 3.1 Albumin/Globulin Ratio 1.3 Amylase 55 Lipase 46 Salicylates < 1 L Acetaminophen < 10.0 L Alcohol, Quantitative < 10 Influenza Typ A,B (EIA) 04/15/17 14:30 WBC RBC Hgb Hct MCV MCH MCHC RDW Plt Count MPV Gran % Lymph % (Auto) [place] % (Auto) Eos % (Auto) Baso % (Auto) Gran # Lymph # (Auto) [place] # (Auto) Eos # (Auto) Baso # (Auto) PT 11.3 INR 0.99 APTT Sodium Potassium Chloride Carbon Dioxide Anion Gap BUN Creatinine Est GFR ( Amer) Est GFR (Non-Af Amer) Random Glucose Calcium Magnesium Total Bilirubin AST ALT Alkaline Phosphatase Lactate Dehydrogenase Total Creatine Kinase Troponin I Total Protein Albumin Globulin Albumin/Globulin Ratio Amylase Lipase Salicylates Acetaminophen Alcohol, Quantitative Influenza Typ A,B (EIA) - Imaging and Cardiology Chest x-ray Status: Image reviewed by me, Report reviewed by me Assessment & Plan - Assessment and Plan (Free Text) Assessment: 51yo femaler a/w etoh withdrawal and UGIB/hematemsis, melena EtOH withdrawal EtOH abuse Upper GIB Anemia Hematemsis Melena - currently afebrile,HD stale, BP 120/75, HR 115, in NAD comfortable, stable - on exam, normal affect, mild extension tremor, mild epigastric tenderness Recommend: - supp o2 as needed - pancutlure, check procal - IVF hydration, would bolus 2L - Ativan PRN - Thiamine, Folic Acid, MVT - NPO - Protonix, Octreotide drip - GI eval - serial CBC - CT A/P with PO/IV contrast - check lactate - maintain 2 large bore PIVs - Admit to telemetry
[2017-04-15] MEDS: Multivitamin (MVI) 10 ML, Thiamine 100 MG, Folic Acid 1 MG in Sodium Chloride 0.9% 1,00... IV ONE ×2 (17:22→20:56)
[2017-04-15] MEDS ORDERED: Sodium Chloride 0.9% 2,000 ML IV STA (17:23)
[2017-04-15 17:32] LABS: VENOUS BLOOD GAS BASE EXCESS 11.1 mmol/L (0.0-2.0); VENOUS BLOOD GAS PO2 246 mm/Hg (30-55); VENOUS BLOOD PH 7.59 (7.32-7.43)
[2017-04-15 17:52] LABS: PH,URINE 8.5 (4.7-8.0); URINE BILIRUBIN NEGATIVE (NEGATIVE); URINE BLOOD TRACE-INTACT (NEGATIVE); URINE GLUCOSE (UA) NEGATIVE (NEGATIVE); URINE LEUKOCYTE ESTERASE NEGATIVE Leu/uL (NEGATIVE); URINE NITRATE NEGATIVE (NEGATIVE); URINE PROTEIN NEGATIVE mg/dL (<30 mg/dL); URINE UROBILINOGEN 0.2 E.U./dL (<1 E.U./dL)
[2017-04-15 17:54] LABS: URINE COLOR YELLOW (YELLOW)
[2017-04-15 18:00] LABS: HCG,QUALITATIVE URINE NEGATIVE (NEGATIVE); URINE AMORPHOUS SEDIMENT MODERATE; URINE APPEARANCE SL CLOUDY (CLEAR); URINE BACTERIA MOD (NEG); URINE RBC 0 - 2 /hpf (0-2)
--- NOTE | 2017-04-15 18:04 | CP.PCM.HP ---
<Bety Mckinnon - Last Filed: 04/15/17 17:56> History of Present Illness - History of Present Illness History of Present Illness: Bety Pratibha SORIANO PGY1 - Internal Medicine H&P CC: Vomiting blood HPI: 50 year old female with no significant PMH who presents to the ED complaining of nausea and vomiting. Her symptoms started today and she had multiple bouts of emesis today, "was not able to keep anything down." She states the emesis is dark and bloody. She is also complaining of upper abdominal pain, heartburn, and back pain, that started after several episodes of wretching and vomiting. She denies hematochezia or melena. She denies fever, chills, chest pain, shortness of breath, confusion, headache, fall, recent trauma, cough, night sweats, weight loss. She is repeatedly asking for pain medication. She does not take anything for pain at home. Last drink was 2 days ago. She claims to drink only when she is angry, but binge drinks as much as 3 liters in a day, about once weekly. She says that she does go into withdrawal when she doesn't drink. Of note, the patient was recently admitted for chest pain, abdominal pain, and alcohol withdrawal, but patient left AMA the following day. PMH: Alcohol abuse PSH: Denies Home medications: PRN tylenol PM, PRN prilosec Allergies: NKDA Fam Hx: Pancreatic Cancer (Father-Alive), Cancer (Paternal Uncle-), Cancer (Paternal Aunt- Alive Social Hx: Binge drinks once in a while, Marijuana, Smokes pack a day for about 30 years. Occupation is a [employer] but has not been recently working PMD: Dr. Romero Present on Admission - Present on Admission Any Indicators Present on Admission: No Past Patient History - Infectious Disease Hx of Infectious Diseases: None - Past Medical History & Family History Past Medical History?: Yes - Past Social History Smoking Status: Light Smoker < 10 Cigarettes Daily - CARDIAC Hx Cardiac Disorders: Yes Hx Hypertension: Yes - PULMONARY Hx Respiratory Disorders: Yes Hx Bronchitis: Yes - NEUROLOGICAL Hx Neurological Disorder: Yes Hx Seizures: Yes - RENAL Hx Chronic Kidney Disease: No - HEMATOLOGICAL/ONCOLOGICAL Hx Cancer: No - INTEGUMENTARY Hx Dermatological Problems: No - MUSCULOSKELETAL/RHEUMATOLOGICAL Hx Falls: No - GASTROINTESTINAL Hx Gastroesophageal Reflux: Yes Other/Comment: never had EGD or Colon - GENITOURINARY/GYNECOLOGICAL Hx Genitourinary Disorders: No - PSYCHIATRIC Hx Psychophysiologic Disorder: No Hx Substance Use: Yes - SURGICAL HISTORY Hx Orthopedic Surgery: Yes (20 YEARS) - ANESTHESIA Hx Anesthesia: Yes Hx Anesthesia Reactions: No Hx Malignant Hyperthermia: No Meds Allergies/Adverse Reactions: Allergies Allergy/AdvReac Type Severity Reaction Status Date / Time No Known Allergies Allergy Verified 04/15/17 22:00 Physical Exam - Constitutional Appears: Non-toxic, No Acute Distress - Head Exam Head Exam: ATRAUMATIC, NORMOCEPHALIC - Eye Exam Eye Exam: EOMI, Normal appearance, PERRL Additional comments: Conjunctival pallor - ENT Exam ENT Exam: Mucous Membranes Moist - Neck Exam Neck exam: Positive for: Normal Inspection - Respiratory Exam Respiratory Exam: Clear to Auscultation Bilateral, NORMAL BREATHING PATTERN - Cardiovascular Exam Cardiovascular Exam: Tachycardia, REGULAR RHYTHM, +S1, +S2 Additional comments: Distal pulses strong and symmetric in b/l UE and LE 4/5 bilateral radial 4/5 bilateral femoral 4/5 bilateral dorsalis pedis - GI/Abdominal Exam GI & Abdominal Exam: Normal Bowel Sounds, Soft, Tenderness (minimal, epigastric) . absent: Distended, Firm, Guarding, Pulsatile Mass, Rebound, Rigid - Extremities Exam Extremities exam: Positive for: normal capillary refill, pedal pulses present. Negative for: calf tenderness, pedal edema - Neurological Exam Neurological exam: Alert, CN II-XII Intact, Oriented x3 - Psychiatric Exam Psychiatric exam: Normal Affect, Normal Mood - Skin Skin Exam: Dry, Intact, Normal Color Results - Vital Signs Recent Vital Signs: Last Vital Signs Temp 99.2 F 04/15/17 13:48 Pulse 116 H 04/15/17 17:04 Resp 18 04/15/17 17:04 BP 122/75 04/15/17 17:04 Pulse Ox 96 04/15/17 17:04 - Labs Result Diagrams: 04/15/17 14:30 04/15/17 14:30 Labs: Laboratory Results - last 24 hr 04/15/17 04/15/17 16:54 17:00 pO2 246 H VBG pH 7.59 H VBG pCO2 35.0 L VBG HCO3 33.6 H VBG Total CO2 34.7 H VBG O2 Sat (Calc) 100.0 H VBG Base Excess 11.1 H VBG Potassium 3.9 Sodium 139.0 Chloride 101.0 Glucose 109 H Lactate 3.2 H FiO2 21.0 Venous Blood Potassium 3.9 Urine Color Yellow Urine Appearance Clear Urine pH 8.5 Ur Specific [place] 1.010 Urine Protein Negative Urine Glucose (UA) Negative Urine Ketones Negative Urine Blood Trace-intact H Urine Nitrate Negative Urine Bilirubin Negative Urine Urobilinogen 0.2 Ur Leukocyte Esterase Negative Assessment & Plan - Assessment and Plan (Free Text) Assessment: 51 year old AA female who presented to the ED with complaint of nausea, vomiting , hematemesis, back pain, abdominal pain, and EtOH abuse. Plan: 1. Hematemesis -Patient reportedly had one episode of hematemesis in the ER, per ER team -Patient is tachycardic; CMP implicates hypovolemia; Hgb markedly lower than one week ago -Likely 2/2 UGIB 2/2 shikha dai tears vs erosive esophagitis vs bleeding esophageal varices -IVF bolus, patient received 1L bolus, ordered 2L bolus, followed by banana bag for maintenance -Protonix drip -Type and screen ordered -Maintain 2 large-bore peripheral IV lines -Repeat H&H @2200 -CT A/P ordered; pending -Monitor Vitals -NPO -Admit to telemetry -GI consult requested; appreciate recs 2. Abdominal Pain and back pain -Pain started after several episodes of wretching/emesis -Likely secondary to Alcoholic Gastritis with Vomiting vs shikha dai tears vs PUD vs pancreatitis -Lipase/Amylase low -CT A/P Ordered, pending -Morphine 1mg IV PRN -NPO -Zofran -PPI drip, as above 3. Alcohol Abuse -Ativan -CIWA protocol -Seizure precautions -Aspiration precaution -MV, thiamine and folic acid 4. Depressive Symptoms/Alcohol Abuse -Psych Consulted, follow recs GI/DVT -protonix -SCD (avoid anticoagulants in likely GIB) Patient was seen, examined and discussed with attending, Dr. Heredia <Dev Heredia - Last Filed: 04/16/17 17:39> Results - Vital Signs Recent Vital Signs: Last Vital Signs Temp 98.2 F 04/16/17 14:23 Pulse 106 H 04/16/17 14:23 Resp 16 04/16/17 14:23 BP 134/78 04/16/17 14:23 Pulse Ox 99 04/16/17 14:23 - Labs Result Diagrams: 04/16/17 06:55 04/16/17 06:55 Labs: Laboratory Results - last 24 hr 04/15/17 04/15/17 04/15/17 16:54 16:54 17:00 WBC RBC Hgb Hct MCV MCH MCHC RDW Plt Count MPV Gran % Lymph % (Auto) [place] % (Auto) Eos % (Auto) Baso % (Auto) Gran # Lymph # (Auto) [place] # (Auto) Eos # (Auto) Baso # (Auto) PT INR pO2 246 H VBG pH 7.59 H VBG pCO2 35.0 L VBG HCO3 33.6 H VBG Total CO2 34.7 H VBG O2 Sat (Calc) 100.0 H VBG Base Excess 11.1 H VBG Potassium 3.9 Sodium 139.0 Chloride 101.0 Glucose 109 H Lactate 3.2 H FiO2 21.0 Potassium Carbon Dioxide Anion Gap BUN Creatinine Est GFR ( Amer) Est GFR (Non-Af Amer) Random Glucose Calcium Phosphorus Magnesium Total Bilirubin AST ALT Alkaline Phosphatase Total Protein Albumin Globulin Albumin/Globulin Ratio Venous Blood Potassium 3.9 Urine Color Yellow Urine Appearance Sl cloudy Urine pH 8.5 Ur Specific [place] 1.010 Urine Protein Negative Urine Glucose (UA) Negative Urine Ketones Negative Urine Blood Trace-intact H Urine Nitrate Negative Urine Bilirubin Negative Urine Urobilinogen 0.2 Ur Leukocyte Esterase Negative Urine RBC 0 - 2 Urine WBC 2 - 5 Ur Epithelial Cells 4 - 5 Amorphous Sediment Moderate Urine Bacteria Mod Urine HCG, Qual Negative Urine Opiates Screen Negative Urine Methadone Screen Negative Ur Barbiturates Screen Negative Ur Phencyclidine Scrn Negative Ur Amphetamines Screen Negative U Benzodiazepines Scrn Negative U Oth Cocaine Metabols Negative U Cannabinoids Screen Negative Blood Type Blood Type Confirm Antibody Screen Crossmatch BBK History Checked 04/15/17 04/15/17 04/16/17 22:05 22:05 00:05 WBC RBC Hgb 6.0 L* D Hct 18.3 L* MCV MCH MCHC RDW Plt Count MPV Gran % Lymph % (Auto) [place] % (Auto) Eos % (Auto) Baso % (Auto) Gran # Lymph # (Auto) [place] # (Auto) Eos # (Auto) Baso # (Auto) PT INR pO2 33 VBG pH 7.47 H VBG pCO2 44.0 VBG HCO3 32.0 H VBG Total CO2 33.4 H VBG O2 Sat (Calc) 69.3 H VBG Base Excess 7.4 H VBG Potassium 3.6 Sodium 139.0 Chloride 104.0 Glucose 104 Lactate 1.4 FiO2 21.0 Potassium Carbon Dioxide Anion Gap BUN Creatinine Est GFR ( Amer) Est GFR (Non-Af Amer) Random Glucose Calcium Phosphorus Magnesium Total Bilirubin AST ALT Alkaline Phosphatase Total Protein Albumin Globulin Albumin/Globulin Ratio Venous Blood Potassium 3.6 Urine Color Urine Appearance Urine pH Ur Specific [place] Urine Protein Urine Glucose (UA) Urine Ketones Urine Blood Urine Nitrate Urine Bilirubin Urine Urobilinogen Ur Leukocyte Esterase Urine RBC Urine WBC Ur Epithelial Cells Amorphous Sediment Urine Bacteria Urine HCG, Qual Urine Opiates Screen Urine Methadone Screen Ur Barbiturates Screen Ur Phencyclidine Scrn Ur Amphetamines Screen U Benzodiazepines Scrn U Oth Cocaine Metabols U Cannabinoids Screen Blood Type B POSITIVE Blood Type Confirm Antibody Screen Negative Crossmatch See Detail BBK History Checked No verified bt 04/16/17 04/16/17 04/16/17 01:50 01:50 06:55 WBC 11.0 10.8 RBC 2.04 L 2.50 L Hgb 6.1 L* 7.4 L Hct 18.6 L* 22.6 L MCV 91.2 90.4 MCH 29.9 29.6 MCHC 32.8 32.7 RDW 15.3 H 15.3 H Plt Count 188 189 MPV 9.5 9.5 Gran % 41.4 L Lymph % (Auto) 49.3 H [place] % (Auto) 8.1 H Eos % (Auto) 1.1 L Baso % (Auto) 0.1 Gran # 4.45 Lymph # (Auto) 5.3 H [place] # (Auto) 0.9 H Eos # (Auto) 0.1 Baso # (Auto) 0.01 PT INR pO2 VBG pH VBG pCO2 VBG HCO3 VBG Total CO2 VBG O2 Sat (Calc) VBG Base Excess VBG Potassium Sodium Chloride Glucose Lactate FiO2 Potassium Carbon Dioxide Anion Gap BUN Creatinine Est GFR ( Amer) Est GFR (Non-Af Amer) Random Glucose Calcium Phosphorus Magnesium Total Bilirubin AST ALT Alkaline Phosphatase Total Protein Albumin Globulin Albumin/Globulin Ratio Venous Blood Potassium Urine Color Urine Appearance Urine pH Ur Specific [place] Urine Protein Urine Glucose (UA) Urine Ketones Urine Blood Urine Nitrate Urine Bilirubin Urine Urobilinogen Ur Leukocyte Esterase Urine RBC Urine WBC Ur Epithelial Cells Amorphous Sediment Urine Bacteria Urine HCG, Qual Urine Opiates Screen Urine Methadone Screen Ur Barbiturates Screen Ur Phencyclidine Scrn Ur Amphetamines Screen U Benzodiazepines Scrn U Oth Cocaine Metabols U Cannabinoids Screen Blood Type Blood Type Confirm B POSITIVE Antibody Screen Crossmatch BBK History Checked 04/16/17 04/16/17 06:55 06:55 WBC RBC Hgb Hct MCV MCH MCHC RDW Plt Count MPV Gran % Lymph % (Auto) [place] % (Auto) Eos % (Auto) Baso % (Auto) Gran # Lymph # (Auto) [place] # (Auto) Eos # (Auto) Baso # (Auto) PT 11.5 INR 1.00 pO2 VBG pH VBG pCO2 VBG HCO3 VBG Total CO2 VBG O2 Sat (Calc) VBG Base Excess VBG Potassium Sodium 140 Chloride 105 Glucose Lactate FiO2 Potassium 3.5 L Carbon Dioxide 28 Anion Gap 11 BUN 24 H Creatinine 0.7 Est GFR ( Amer) > 60 Est GFR (Non-Af Amer) > 60 Random Glucose 92 Calcium 8.5 Phosphorus 2.7 Magnesium 1.9 Total Bilirubin 0.6 AST 29 ALT 31 Alkaline Phosphatase 68 Total Protein 5.3 L Albumin 2.9 L Globulin 2.4 Albumin/Globulin Ratio 1.2 Venous Blood Potassium Urine Color Urine Appearance Urine pH Ur Specific [place] Urine Protein Urine Glucose (UA) Urine Ketones Urine Blood Urine Nitrate Urine Bilirubin Urine Urobilinogen Ur Leukocyte Esterase Urine RBC Urine WBC Ur Epithelial Cells Amorphous Sediment Urine Bacteria Urine HCG, Qual Urine Opiates Screen Urine Methadone Screen Ur Barbiturates Screen Ur Phencyclidine Scrn Ur Amphetamines Screen U Benzodiazepines Scrn U Oth Cocaine Metabols U Cannabinoids Screen Blood Type Blood Type Confirm Antibody Screen Crossmatch BBK History Checked Attending/Attestation - Attestation I have personally seen and examined this patient.: Yes I have fully participated in the care of the patient.: Yes I have reviewed all pertinent clinical information: Yes Notes (Text): 04/16/17 17:35 Attending note; Patient seen and examined with resident. Patient is a 50 year old female with significant PMH of alcohol abuse is admitted with binge drinking , nausea vomiting and hematemesis . Patient also complained of one dark stool . Hemoglobin was 9.8. Patient is in mild alcohol withdrawal. Blood pressure is stable. Possible alcoholic gastritis/ulcer suspected. GI evaluation requested. CT abdomen and pelvis ordered. Monitor hemoglobin. Continue IV fluids/banana bag. Possible endoscopy in a.m.. Chronic alcohol abuse; alcohol cessation is strongly advised. Depression; psychiatric evaluation requested. Upon discharge the patient will follow-up with PMD Dr. Romero. 04/16/17 17:38
[2017-04-15 18:07] LABS: BARBITURATES, UR NEGATIVE (NEGATIVE); BENZODIAZEPINES, UR NEGATIVE (NEGATIVE); OPIATES, UR NEGATIVE (NEGATIVE); PHENCYCLIDINE, UR NEGATIVE (NEGATIVE)
--- NOTE | 2017-04-15 20:48 | PCM.PROC ---
Procedures Attestation:: I certify that I have explained the specified Operation(s) or Procedure(s), risks, benefits and reasonable alternatives to the Patient and/or other person responsible. The opportunity was given to ask questions and all questions answered - Central Line Placement Right Internal Jugular Triple Lumen Catheter Aseptic technique was employed throughout the procedure: Hand Hygiene done prior to procedure, Full sterile barriers (mask, hair cover, sterile gown, sterile gloves), Full body sterile drape, Chloraprep Antiseptic: 30 second prep for IJ or SC sites CVP Time Out Performed: Yes Pt. Placed on Pulse Ox Monitor: No Central Line Prep: Chlorhexidine-Alcohol Combination Local Anesthesia Used: Lidocaine 1% Amount of Anesthesia Used (mls): 3 Ultrasound Used for Placement: Yes Central Line Lumen Inserted: triple Central Line Length: 20 cm Post Procedure: Sutured in Place, Good Blood Return, All Ports Aspirated, Flushed, Capped, Sterile Dressing Applied Secured by: Suture Post procedure dressing: Clear vapor permeable, Chlorhexidine disc (Biopatch) Post Procedure X-Ray: Yes Patient Tolerated Procedure: Well, No Complications Immediate Complications: None Additional Comments: Written informed consent obtained and placed in chart. Nursing staff in procedure room for the duration of the procedure. residential support specialist Dr. Barnard was present during the entire procedure. Will obtain CXR. No immediate complications noted. Patient tolerated procedure well.
[2017-04-15] MEDS: Morphine 2 mg/ml ISec IVP PRN (20:56)
[2017-04-15] MEDS ORDERED: cefTRIAXone 1 gm 1 GM/100 ML BAG IVPB STA (21:59)
[2017-04-15 22:09] LABS: VENOUS BLOOD GAS BASE EXCESS 7.4 mmol/L (0.0-2.0); VENOUS BLOOD GAS PO2 33 mm/Hg (30-55); VENOUS BLOOD PH 7.47 (7.32-7.43)
[2017-04-15] MEDS ORDERED: Pneumococcal 23-Valent Vaccine IM ONE (22:19)
[2017-04-15] MEDS ORDERED: Influenza Vaccine 60 mcg/0.5 mL SYR (4YR UP) IM ONE (22:19)
--- NOTE | 2017-04-16 00:34 | CARD ---
APPROVED REPORT EKG Measurement Heart [id number] <Conclusion> Sinus tachycardia Biatrial enlargement Abnormal ECG
[2017-04-16] MEDS: Morphine 2 mg/ml ISec IVP PRN ×4 (00:56→20:17)
[2017-04-16] MEDS: Pantoprazole 40mg/100mL NS 40 MG/100 ML BAG IVPB SCH ×3 (01:34→21:03)
[2017-04-16 02:06] LABS: MEAN CELL VOLUME 91.2 fl (80.0-105.0); MEAN CORPUSCULAR HEMOGLOBIN 29.9 pg (25.0-35.0); MEAN CORPUSCULAR HGB CONC 32.8 g/dl (31.0-37.0); MEAN PLATELET VOLUME 9.5 fl (7.0-11.0); RBC 2.04 10^6/uL (3.5-6.1); RED CELL DISTRIBUTION WIDTH 15.3 % (11.5-14.5)
[2017-04-16 02:07] LABS: HEMOGLOBIN 6.1 g/dL (12.0-16.0)
[2017-04-16 07:21] LABS: BASO # 0.01 K/mm3 (0.0-2.0); BASO % 0.1 % (0.0-3.0); EOS # 0.1 (0.0-0.7); EOS % 1.1 % (1.5-5.0); GRAN # 4.45 (1.4-6.5); GRAN % 41.4 % (50.0-68.0); LYMPH # 5.3 (1.2-3.4); LYMPH % 49.3 % (22.0-35.0); MEAN CELL VOLUME 90.4 fl (80.0-105.0); MEAN CORPUSCULAR HEMOGLOBIN 29.6 pg (25.0-35.0); MEAN CORPUSCULAR HGB CONC 32.7 g/dl (31.0-37.0); MEAN PLATELET VOLUME 9.5 fl (7.0-11.0); MONO # 0.9 (0.1-0.6); MONO % 8.1 % (1.0-6.0); RBC 2.5 10^6/uL (3.5-6.1); RED CELL DISTRIBUTION WIDTH 15.3 % (11.5-14.5); WHITE BLOOD COUNT 10.8 10^3/ul (4.5-11.0)
[2017-04-16 07:23] LABS: PROTHROMBIN TIME 11.5 SECONDS (9.4-12.5)
[2017-04-16 07:31] LABS: ALB/GLOB RATIO 1.2 (1.1-1.8); ALBUMIN 2.9 g/dL (3.0-4.8); ALT/SGPT 31 U/L (7-56); AST/SGOT 29 U/L (14-36); BLOOD UREA NITROGEN 24 mg/dL (7-21); CALCIUM 8.5 mg/dL (8.4-10.5); GFR AFRICAN-AMERICAN > 60; GFR NON-AFRICAN AMERICAN > 60; MAGNESIUM 1.9 mg/dL (1.7-2.2)
[2017-04-16 07:54] LABS: HEMOGLOBIN 7.4 g/dL (12.0-16.0)
--- NOTE | 2017-04-16 08:20 | CT ---
PROCEDURE: CT Abdomen and Pelvis without intravenous contrast HISTORY: ABDOMINAL PAIN, VOMITING COMPARISON: 04/08/2017 TECHNIQUE: Without contrast. Contrast Dose: Radiation dose: Total exam DLP = 764 mGy-cm. This CT exam was performed using one or more of the following dose reduction techniques: Automated exposure control, adjustment of the mA and/or kV according to patient size, and/or use of iterative reconstruction technique. FINDINGS: LOWER THORAX: There is a hiatal hernia with thickening of the gastric wall and distal esophageal wall. The finding is suspicious for gastritis. This is unchanged LIVER: Unremarkable. No gross lesion or ductal dilatation. GALLBLADDER AND BILE DUCTS: Unremarkable. PANCREAS: Unremarkable. No gross lesion or ductal dilatation. SPLEEN: Unremarkable. ADRENALS: Unremarkable. No mass. KIDNEYS AND URETERS: Unremarkable. No hydronephrosis. No solid mass. VASCULATURE: Unremarkable. No aortic aneurysm. BOWEL: Unremarkable. No obstruction. No gross mural thickening. APPENDIX: Unremarkable. Normal appendix. PERITONEUM: Unremarkable. No free fluid. No free air. LYMPH NODES: Unremarkable. No enlarged lymph nodes. BLADDER: Unremarkable. REPRODUCTIVE: Unremarkable. BONES: No acute fracture. OTHER FINDINGS: The report concurs with the preliminary [facility] report IMPRESSION: Hiatal hernia with gastric wall thickening suspicious for gastritis. No acute intra-abdominal findings
[2017-04-16] MEDS ORDERED: Potassium Chloride 20 mEq ER Tab PO ONE (08:53)
--- NOTE | 2017-04-16 09:56 | CP.PCM.CON ---
<Chanelle Odom - Last Filed: 04/16/17 10:19> History of Present Illness - History of Present Illness History of Present Illness: Initial PGY4 GI consult Celeste Pickard is a 51F w/ hx od ETOH abuse who presents to the ED with complaints of coffee-ground emesis and melena. Pt stated that she had 2-3 episodes. She notes that her last drink was 2 days ago and she consumed 2-3 pints of vodka. She notes some abd discomfort in the epigastric area. She denies any previous hospitalization for liver and alcohol related issues. Denies any hx of pancreatitis. Pt was found to initially have hgb of 9.6. She was witnessed to have x1 episode of coffee-ground emesis in the ER. A repeat hgb overnight revealed a hgb of ~ 6. She received 1 unit of PRBC and her hgb went up to 7.4. Currently denies any abd pain, nausea or vomiting, NPO since last night. Denies any previous colonoscopy and endoscopy. She does not take anything for pain at home. Last drink was 2 days ago. She claims to drink only when she is angry, but binge drinks as much as 3 liters in a day, about once weekly. She says that she does go into withdrawal when she doesn't drink. Of note, the patient was recently admitted for chest pain, abdominal pain, and alcohol withdrawal, but patient left AMA the following day. PMH: Alcohol abuse PSH: Denies Fam Hx: Pancreatic Cancer (Father-Alive), Cancer (Paternal Uncle-), Cancer (Paternal Aunt- Alive Social Hx: Binge drinks once in a while, Marijuana, Smokes pack a day for about 30 years. Occupation is a [employer] but has not been recently working ROS: 12 point ROS conducted neg other than above Past Patient History - Infectious Disease Hx of Infectious Diseases: None - Past Medical History & Family History Past Medical History?: Yes - Past Social History Smoking Status: Light Smoker < 10 Cigarettes Daily - CARDIAC Hx Cardiac Disorders: Yes Hx Hypertension: Yes - PULMONARY Hx Respiratory Disorders: Yes Hx Bronchitis: Yes - NEUROLOGICAL Hx Neurological Disorder: Yes Hx Seizures: Yes - RENAL Hx Chronic Kidney Disease: No - HEMATOLOGICAL/ONCOLOGICAL Hx Cancer: No - INTEGUMENTARY Hx Dermatological Problems: No - MUSCULOSKELETAL/RHEUMATOLOGICAL Hx Falls: No - GASTROINTESTINAL Hx Gastroesophageal Reflux: Yes Other/Comment: never had EGD or Colon - GENITOURINARY/GYNECOLOGICAL Hx Genitourinary Disorders: No - PSYCHIATRIC Hx Psychophysiologic Disorder: No Hx Substance Use: Yes - SURGICAL HISTORY Hx Orthopedic Surgery: Yes (20 YEARS) - ANESTHESIA Hx Anesthesia: Yes Hx Anesthesia Reactions: No Hx Malignant Hyperthermia: No Meds Allergies/Adverse Reactions: Allergies Allergy/AdvReac Type Severity Reaction Status Date / Time No Known Allergies Allergy Verified 04/15/17 22:00 - Medications Medications: Current Medications Pantoprazole Sodium (Protonix 40mg Ivpb) 40 mg in 100 mls @ 20 mls/hr IVPB .Q5H LUISITO Last Admin: 04/16/17 01:34 Dose: 20 mls/hr Lorazepam (Ativan) 2 mg IVP Q4H PRN; Protocol PRN Reason: Symptoms of alcohol withdrawl Last Admin: 04/16/17 01:35 Dose: 2 mg Morphine Sulfate (Morphine) 1 mg IVP Q4H PRN PRN Reason: Pain, moderate (4-7) Last Admin: 04/16/17 08:06 Dose: 1 mg Ondansetron HCl (Zofran Inj) 4 mg IVP Q4H PRN PRN Reason: Nausea/Vomiting Physical Exam - Constitutional Appears: No Acute Distress - Head Exam Head Exam: ATRAUMATIC, NORMOCEPHALIC - Eye Exam Eye Exam: Normal appearance - ENT Exam ENT Exam: Mucous Membranes Moist, Normal Exam - Neck Exam Neck exam: Positive for: Normal Inspection - Respiratory Exam Respiratory Exam: Clear to Auscultation Bilateral, NORMAL BREATHING PATTERN. absent: Rales, Rhonchi, Wheezes, Respiratory Distress - Cardiovascular Exam Cardiovascular Exam: REGULAR RHYTHM, +S1, +S2 - GI/Abdominal Exam GI & Abdominal Exam: Normal Bowel Sounds, Soft. absent: Organomegaly, Rigid, Tenderness - Extremities Exam Extremities exam: Negative for: joint swelling, pedal edema - Neurological Exam Neurological exam: Alert, Oriented x3 - Psychiatric Exam Psychiatric exam: Normal Affect, Normal Mood - Skin Skin Exam: Dry, Intact, Normal Color, Warm Results - Vital Signs Recent Vital Signs: Last Vital Signs Temp 97.9 F 04/16/17 06:55 Pulse 110 H 04/16/17 06:55 Resp 18 04/16/17 06:55 BP 124/84 04/16/17 06:55 Pulse Ox 98 04/16/17 00:01 - Labs Result Diagrams: 04/16/17 06:55 04/16/17 06:55 Labs: Laboratory Results - last 24 hr 04/15/17 04/15/17 04/15/17 16:54 16:54 17:00 WBC RBC Hgb Hct MCV MCH MCHC RDW Plt Count MPV Gran % Lymph % (Auto) [place] % (Auto) Eos % (Auto) Baso % (Auto) Gran # Lymph # (Auto) [place] # (Auto) Eos # (Auto) Baso # (Auto) PT INR pO2 246 H VBG pH 7.59 H VBG pCO2 35.0 L VBG HCO3 33.6 H VBG Total CO2 34.7 H VBG O2 Sat (Calc) 100.0 H VBG Base Excess 11.1 H VBG Potassium 3.9 Sodium 139.0 Chloride 101.0 Glucose 109 H Lactate 3.2 H FiO2 21.0 Potassium Carbon Dioxide Anion Gap BUN Creatinine Est GFR ( Amer) Est GFR (Non-Af Amer) Random Glucose Calcium Phosphorus Magnesium Total Bilirubin AST ALT Alkaline Phosphatase Total Protein Albumin Globulin Albumin/Globulin Ratio Venous Blood Potassium 3.9 Urine Color Yellow Urine Appearance Sl cloudy Urine pH 8.5 Ur Specific [place] 1.010 Urine Protein Negative Urine Glucose (UA) Negative Urine Ketones Negative Urine Blood Trace-intact H Urine Nitrate Negative Urine Bilirubin Negative Urine Urobilinogen 0.2 Ur Leukocyte Esterase Negative Urine RBC 0 - 2 Urine WBC 2 - 5 Ur Epithelial Cells 4 - 5 Amorphous Sediment Moderate Urine Bacteria Mod Urine HCG, Qual Negative Urine Opiates Screen Negative Urine Methadone Screen Negative Ur Barbiturates Screen Negative Ur Phencyclidine Scrn Negative Ur Amphetamines Screen Negative U Benzodiazepines Scrn Negative U Oth Cocaine Metabols Negative U Cannabinoids Screen Negative Blood Type Blood Type Confirm Antibody Screen Crossmatch BBK History Checked 04/15/17 04/15/17 04/16/17 22:05 22:05 00:05 WBC RBC Hgb 6.0 L* D Hct 18.3 L* MCV MCH MCHC RDW Plt Count MPV Gran % Lymph % (Auto) [place] % (Auto) Eos % (Auto) Baso % (Auto) Gran # Lymph # (Auto) [place] # (Auto) Eos # (Auto) Baso # (Auto) PT INR pO2 33 VBG pH 7.47 H VBG pCO2 44.0 VBG HCO3 32.0 H VBG Total CO2 33.4 H VBG O2 Sat (Calc) 69.3 H VBG Base Excess 7.4 H VBG Potassium 3.6 Sodium 139.0 Chloride 104.0 Glucose 104 Lactate 1.4 FiO2 21.0 Potassium Carbon Dioxide Anion Gap BUN Creatinine Est GFR ( Amer) Est GFR (Non-Af Amer) Random Glucose Calcium Phosphorus Magnesium Total Bilirubin AST ALT Alkaline Phosphatase Total Protein Albumin Globulin Albumin/Globulin Ratio Venous Blood Potassium 3.6 Urine Color Urine Appearance Urine pH Ur Specific [place] Urine Protein Urine Glucose (UA) Urine Ketones Urine Blood Urine Nitrate Urine Bilirubin Urine Urobilinogen Ur Leukocyte Esterase Urine RBC Urine WBC Ur Epithelial Cells Amorphous Sediment Urine Bacteria Urine HCG, Qual Urine Opiates Screen Urine Methadone Screen Ur Barbiturates Screen Ur Phencyclidine Scrn Ur Amphetamines Screen U Benzodiazepines Scrn U Oth Cocaine Metabols U Cannabinoids Screen Blood Type B POSITIVE Blood Type Confirm Antibody Screen Negative Crossmatch See Detail BBK History Checked No verified bt 04/16/17 04/16/17 04/16/17 01:50 01:50 06:55 WBC 11.0 10.8 RBC 2.04 L 2.50 L Hgb 6.1 L* 7.4 L Hct 18.6 L* 22.6 L MCV 91.2 90.4 MCH 29.9 29.6 MCHC 32.8 32.7 RDW 15.3 H 15.3 H Plt Count 188 189 MPV 9.5 9.5 Gran % 41.4 L Lymph % (Auto) 49.3 H [place] % (Auto) 8.1 H Eos % (Auto) 1.1 L Baso % (Auto) 0.1 Gran # 4.45 Lymph # (Auto) 5.3 H [place] # (Auto) 0.9 H Eos # (Auto) 0.1 Baso # (Auto) 0.01 PT INR pO2 VBG pH VBG pCO2 VBG HCO3 VBG Total CO2 VBG O2 Sat (Calc) VBG Base Excess VBG Potassium Sodium Chloride Glucose Lactate FiO2 Potassium Carbon Dioxide Anion Gap BUN Creatinine Est GFR ( Amer) Est GFR (Non-Af Amer) Random Glucose Calcium Phosphorus Magnesium Total Bilirubin AST ALT Alkaline Phosphatase Total Protein Albumin Globulin Albumin/Globulin Ratio Venous Blood Potassium Urine Color Urine Appearance Urine pH Ur Specific [place] Urine Protein Urine Glucose (UA) Urine Ketones Urine Blood Urine Nitrate Urine Bilirubin Urine Urobilinogen Ur Leukocyte Esterase Urine RBC Urine WBC Ur Epithelial Cells Amorphous Sediment Urine Bacteria Urine HCG, Qual Urine Opiates Screen Urine Methadone Screen Ur Barbiturates Screen Ur Phencyclidine Scrn Ur Amphetamines Screen U Benzodiazepines Scrn U Oth Cocaine Metabols U Cannabinoids Screen Blood Type Blood Type Confirm B POSITIVE Antibody Screen Crossmatch BBK History Checked 04/16/17 04/16/17 06:55 06:55 WBC RBC Hgb Hct MCV MCH MCHC RDW Plt Count MPV Gran % Lymph % (Auto) [place] % (Auto) Eos % (Auto) Baso % (Auto) Gran # Lymph # (Auto) [place] # (Auto) Eos # (Auto) Baso # (Auto) PT 11.5 INR 1.00 pO2 VBG pH VBG pCO2 VBG HCO3 VBG Total CO2 VBG O2 Sat (Calc) VBG Base Excess VBG Potassium Sodium 140 Chloride 105 Glucose Lactate FiO2 Potassium 3.5 L Carbon Dioxide 28 Anion Gap 11 BUN 24 H Creatinine 0.7 Est GFR ( Amer) > 60 Est GFR (Non-Af Amer) > 60 Random Glucose 92 Calcium 8.5 Phosphorus 2.7 Magnesium 1.9 Total Bilirubin 0.6 AST 29 ALT 31 Alkaline Phosphatase 68 Total Protein 5.3 L Albumin 2.9 L Globulin 2.4 Albumin/Globulin Ratio 1.2 Venous Blood Potassium Urine Color Urine Appearance Urine pH Ur Specific [place] Urine Protein Urine Glucose (UA) Urine Ketones Urine Blood Urine Nitrate Urine Bilirubin Urine Urobilinogen Ur Leukocyte Esterase Urine RBC Urine WBC Ur Epithelial Cells Amorphous Sediment Urine Bacteria Urine HCG, Qual Urine Opiates Screen Urine Methadone Screen Ur Barbiturates Screen Ur Phencyclidine Scrn Ur Amphetamines Screen U Benzodiazepines Scrn U Oth Cocaine Metabols U Cannabinoids Screen Blood Type Blood Type Confirm Antibody Screen Crossmatch BBK History Checked Assessment & Plan - Assessment and Plan (Free Text) Assessment: Celeste Pickard is a 51F w/ a hx of ETOH abuse who presents to the ER with complaints of coffee-grounds and melena Anemia 2/2 GI bleed GI bleed likely upper, r/o PUD, AVM, malignancy Melena alcohol abuse Plan: -continue PPI drip -keep hgb > 7 -s/p triple lumen -keep NPO -EGD today -repeat hgb tonight -advised alcohol cessation -alcohol withdrawl protocol -consent in chart -avoid NSAIDs D/W Dr. Cook <JoyceReOrlando - Last Filed: 04/16/17 10:32> Meds - Medications Medications: Current Medications Pantoprazole Sodium (Protonix 40mg Ivpb) 40 mg in 100 mls @ 20 mls/hr IVPB .Q5H LUISITO Last Admin: 04/16/17 01:34 Dose: 20 mls/hr Lorazepam (Ativan) 2 mg IVP Q4H PRN; Protocol PRN Reason: Symptoms of alcohol withdrawl Last Admin: 04/16/17 01:35 Dose: 2 mg Morphine Sulfate (Morphine) 1 mg IVP Q4H PRN PRN Reason: Pain, moderate (4-7) Last Admin: 04/16/17 08:06 Dose: 1 mg Ondansetron HCl (Zofran Inj) 4 mg IVP Q4H PRN PRN Reason: Nausea/Vomiting Results - Vital Signs Recent Vital Signs: Last Vital Signs Temp 97.9 F 04/16/17 06:55 Pulse 110 H 04/16/17 06:55 Resp 18 04/16/17 06:55 BP 124/84 04/16/17 06:55 Pulse Ox 98 04/16/17 00:01 - Labs Result Diagrams: 04/16/17 06:55 04/16/17 06:55 Labs: Laboratory Results - last 24 hr 04/15/17 04/15/17 04/15/17 16:54 16:54 17:00 WBC RBC Hgb Hct MCV MCH MCHC RDW Plt Count MPV Gran % Lymph % (Auto) [place] % (Auto) Eos % (Auto) Baso % (Auto) Gran # Lymph # (Auto) [place] # (Auto) Eos # (Auto) Baso # (Auto) PT INR pO2 246 H VBG pH 7.59 H VBG pCO2 35.0 L VBG HCO3 33.6 H VBG Total CO2 34.7 H VBG O2 Sat (Calc) 100.0 H VBG Base Excess 11.1 H VBG Potassium 3.9 Sodium 139.0 Chloride 101.0 Glucose 109 H Lactate 3.2 H FiO2 21.0 Potassium Carbon Dioxide Anion Gap BUN Creatinine Est GFR ( Amer) Est GFR (Non-Af Amer) Random Glucose Calcium Phosphorus Magnesium Total Bilirubin AST ALT Alkaline Phosphatase Total Protein Albumin Globulin Albumin/Globulin Ratio Venous Blood Potassium 3.9 Urine Color Yellow Urine Appearance Sl cloudy Urine pH 8.5 Ur Specific [place] 1.010 Urine Protein Negative Urine Glucose (UA) Negative Urine Ketones Negative Urine Blood Trace-intact H Urine Nitrate Negative Urine Bilirubin Negative Urine Urobilinogen 0.2 Ur Leukocyte Esterase Negative Urine RBC 0 - 2 Urine WBC 2 - 5 Ur Epithelial Cells 4 - 5 Amorphous Sediment Moderate Urine Bacteria Mod Urine HCG, Qual Negative Urine Opiates Screen Negative Urine Methadone Screen Negative Ur Barbiturates Screen Negative Ur Phencyclidine Scrn Negative Ur Amphetamines Screen Negative U Benzodiazepines Scrn Negative U Oth Cocaine Metabols Negative U Cannabinoids Screen Negative Blood Type Blood Type Confirm Antibody Screen Crossmatch BBK History Checked 04/15/17 04/15/17 04/16/17 22:05 22:05 00:05 WBC RBC Hgb 6.0 L* D Hct 18.3 L* MCV MCH MCHC RDW Plt Count MPV Gran % Lymph % (Auto) [place] % (Auto) Eos % (Auto) Baso % (Auto) Gran # Lymph # (Auto) [place] # (Auto) Eos # (Auto) Baso # (Auto) PT INR pO2 33 VBG pH 7.47 H VBG pCO2 44.0 VBG HCO3 32.0 H VBG Total CO2 33.4 H VBG O2 Sat (Calc) 69.3 H VBG Base Excess 7.4 H VBG Potassium 3.6 Sodium 139.0 Chloride 104.0 Glucose 104 Lactate 1.4 FiO2 21.0 Potassium Carbon Dioxide Anion Gap BUN Creatinine Est GFR ( Amer) Est GFR (Non-Af Amer) Random Glucose Calcium Phosphorus Magnesium Total Bilirubin AST ALT Alkaline Phosphatase Total Protein Albumin Globulin Albumin/Globulin Ratio Venous Blood Potassium 3.6 Urine Color Urine Appearance Urine pH Ur Specific [place] Urine Protein Urine Glucose (UA) Urine Ketones Urine Blood Urine Nitrate Urine Bilirubin Urine Urobilinogen Ur Leukocyte Esterase Urine RBC Urine WBC Ur Epithelial Cells Amorphous Sediment Urine Bacteria Urine HCG, Qual Urine Opiates Screen Urine Methadone Screen Ur Barbiturates Screen Ur Phencyclidine Scrn Ur Amphetamines Screen U Benzodiazepines Scrn U Oth Cocaine Metabols U Cannabinoids Screen Blood Type B POSITIVE Blood Type Confirm Antibody Screen Negative Crossmatch See Detail BBK History Checked No verified bt 02/08/18 02/08/18 02/08/18 01:50 01:50 06:55 WBC 11.0 10.8 RBC 2.04 L 2.50 L Hgb 6.1 L* 7.4 L Hct 18.6 L* 22.6 L MCV 91.2 90.4 MCH 29.9 29.6 MCHC 32.8 32.7 RDW 15.3 H 15.3 H Plt Count 188 189 MPV 9.5 9.5 Gran % 41.4 L Lymph % (Auto) 49.3 H [place] % (Auto) 8.1 H Eos % (Auto) 1.1 L Baso % (Auto) 0.1 Gran # 4.45 Lymph # (Auto) 5.3 H [place] # (Auto) 0.9 H Eos # (Auto) 0.1 Baso # (Auto) 0.01 PT INR pO2 VBG pH VBG pCO2 VBG HCO3 VBG Total CO2 VBG O2 Sat (Calc) VBG Base Excess VBG Potassium Sodium Chloride Glucose Lactate FiO2 Potassium Carbon Dioxide Anion Gap BUN Creatinine Est GFR ( Amer) Est GFR (Non-Af Amer) Random Glucose Calcium Phosphorus Magnesium Total Bilirubin AST ALT Alkaline Phosphatase Total Protein Albumin Globulin Albumin/Globulin Ratio Venous Blood Potassium Urine Color Urine Appearance Urine pH Ur Specific [place] Urine Protein Urine Glucose (UA) Urine Ketones Urine Blood Urine Nitrate Urine Bilirubin Urine Urobilinogen Ur Leukocyte Esterase Urine RBC Urine WBC Ur Epithelial Cells Amorphous Sediment Urine Bacteria Urine HCG, Qual Urine Opiates Screen Urine Methadone Screen Ur Barbiturates Screen Ur Phencyclidine Scrn Ur Amphetamines Screen U Benzodiazepines Scrn U Oth Cocaine Metabols U Cannabinoids Screen Blood Type Blood Type Confirm B POSITIVE Antibody Screen Crossmatch BBK History Checked 04/16/17 04/16/17 06:55 06:55 WBC RBC Hgb Hct MCV MCH MCHC RDW Plt Count MPV Gran % Lymph % (Auto) [place] % (Auto) Eos % (Auto) Baso % (Auto) Gran # Lymph # (Auto) [place] # (Auto) Eos # (Auto) Baso # (Auto) PT 11.5 INR 1.00 pO2 VBG pH VBG pCO2 VBG HCO3 VBG Total CO2 VBG O2 Sat (Calc) VBG Base Excess VBG Potassium Sodium 140 Chloride 105 Glucose Lactate FiO2 Potassium 3.5 L Carbon Dioxide 28 Anion Gap 11 BUN 24 H Creatinine 0.7 Est GFR ( Amer) > 60 Est GFR (Non-Af Amer) > 60 Random Glucose 92 Calcium 8.5 Phosphorus 2.7 Magnesium 1.9 Total Bilirubin 0.6 AST 29 ALT 31 Alkaline Phosphatase 68 Total Protein 5.3 L Albumin 2.9 L Globulin 2.4 Albumin/Globulin Ratio 1.2 Venous Blood Potassium Urine Color Urine Appearance Urine pH Ur Specific [place] Urine Protein Urine Glucose (UA) Urine Ketones Urine Blood Urine Nitrate Urine Bilirubin Urine Urobilinogen Ur Leukocyte Esterase Urine RBC Urine WBC Ur Epithelial Cells Amorphous Sediment Urine Bacteria Urine HCG, Qual Urine Opiates Screen Urine Methadone Screen Ur Barbiturates Screen Ur Phencyclidine Scrn Ur Amphetamines Screen U Benzodiazepines Scrn U Oth Cocaine Metabols U Cannabinoids Screen Blood Type Blood Type Confirm Antibody Screen Crossmatch BBK History Checked Attending/Attestation - Attestation I have personally seen and examined this patient.: Yes I have fully participated in the care of the patient.: Yes I have reviewed all pertinent clinical information: Yes Notes (Text): 04/16/17 10:31 51 year old female with h/o Etoh abuse presenting with signs of upper GI bleeding. 1. Upper GI bleed Plan: -egd today -npo -IV PPI -no stigmata of liver disease or thrombocytopenia
--- NOTE | 2017-04-16 10:27 | CP.PCM.PN ---
<Bety Mckinnon - Last Filed: 04/16/17 11:57> Subjective - Date & Time of Evaluation Date of Evaluation: 04/16/17 Time of Evaluation: 07:30 - Subjective Subjective: Maxisamantha Mckinnon DO PGY1 - IM Progress Note Patient seen and examined at bedside. Patient's repeat H&H dropped overnight, and she was transfused one unit of PRBC. She is currently NPO for EGD. She feels better than yesterday. She denies any chest pain, shortness of breath, fever, or chills. She continues to complain of abdominal pain and back pain. She also admits to melena. She has had no further episodes of vomiting or hemoptysis. Objective - Vital Signs/Intake and Output Vital Signs (last 24 hours): Temp Pulse Resp BP Pulse Ox 97.9 F 110 H 18 124/84 98 04/16/17 06:55 04/16/17 06:55 04/16/17 06:55 04/16/17 06:55 04/16/17 00:01 Intake and Output: 04/16/17 04/16/17 06:59 18:59 Intake Total 935 275 Output Total 0 Balance 935 275 - Medications Medications: Current Medications Pantoprazole Sodium (Protonix 40mg Ivpb) 40 mg in 100 mls @ 20 mls/hr IVPB .Q5H LUISITO Last Admin: 04/16/17 01:34 Dose: 20 mls/hr Lorazepam (Ativan) 2 mg IVP Q4H PRN; Protocol PRN Reason: Symptoms of alcohol withdrawl Last Admin: 04/16/17 01:35 Dose: 2 mg Morphine Sulfate (Morphine) 1 mg IVP Q4H PRN PRN Reason: Pain, moderate (4-7) Last Admin: 04/16/17 08:06 Dose: 1 mg Ondansetron HCl (Zofran Inj) 4 mg IVP Q4H PRN PRN Reason: Nausea/Vomiting - Labs Labs: 04/16/17 06:55 04/16/17 06:55 PT 11.5 SECONDS (9.4-12.5) 04/16/17 06:55 INR 1.00 (0.93-1.08) 04/16/17 06:55 APTT 23.5 Seconds (25.1-36.5) L 04/15/17 14:30 - Constitutional Appears: Non-toxic, No Acute Distress - Head Exam Head Exam: ATRAUMATIC, NORMOCEPHALIC - Eye Exam Eye Exam: EOMI, Normal appearance, PERRL - ENT Exam ENT Exam: Mucous Membranes Moist - Neck Exam Neck Exam: Normal Inspection - Respiratory Exam Respiratory Exam: Clear to Ausculation Bilateral, NORMAL BREATHING PATTERN - Cardiovascular Exam Cardiovascular Exam: RRR, +S1, +S2 - GI/Abdominal Exam GI & Abdominal Exam: Soft, Tenderness (mild, epigastric), Normal Bowel Sounds - Extremities Exam Extremities Exam: absent: Calf Tenderness, Pedal Edema - Neurological Exam Neurological Exam: Alert, Awake, Oriented x3 - Psychiatric Exam Psychiatric exam: Normal Affect, Normal Mood - Skin Skin Exam: Dry, Intact, Normal Color Assessment and Plan - Assessment and Plan (Free Text) Assessment: 51 year old AA female who presented to the ED with complaint of nausea, vomiting , hematemesis, back pain, abdominal pain, and EtOH abuse. Plan: 1. Hematemesis -No further episodes of hematemesis since admission; VSS -H&H dropped overnight, transfused 1uPRBC with appropriate elevation in H&H -Patient is scheduled for EGD today -Protonix drip -R IJ central line placed overnight -CT A/P shows hiatal hernia with gastric wall thickening suspicious for gastritis -NPO -Continue to monitor on telemetry -GI consult requested; appreciate recs 2. Abdominal Pain and back pain -Likely secondary to Alcoholic Gastritis with Vomiting vs shikha dai tears vs PUD vs pancreatitis -Continues to complain of the same, slightly improved since yesterday -CT A/P shows hiatal hernia with gastric wall thickening suspicious for gastritis -Morphine 1mg IV PRN -NPO -Zofran -PPI drip, as above 3. Alcohol Abuse -Ativan -CIWA protocol -Seizure precautions -Aspiration precaution -MV, thiamine and folic acid 4. Depressive Symptoms/Alcohol Abuse -Psych Consulted, follow recs GI/DVT -protonix -SCD (avoid anticoagulants in likely GIB) Patient was seen, examined and discussed with attending, Dr. Heredia <Dev Heredia - Last Filed: 04/16/17 17:43> Objective - Vital Signs/Intake and Output Vital Signs (last 24 hours): Temp Pulse Resp BP Pulse Ox 98.2 F 106 H 16 134/78 99 04/16/17 14:23 04/16/17 14:23 04/16/17 14:23 04/16/17 14:23 04/16/17 14:23 Intake and Output: 04/16/17 04/16/17 06:59 18:59 Intake Total 935 350 Output Total 0 Balance 935 350 - Medications Medications: Current Medications Sodium Chloride (Sodium Chloride 0.9%) 1,000 mls @ 100 mls/hr IV .Q10H LUISITO Last Admin: 04/16/17 15:37 Dose: 100 mls/hr Lorazepam (Ativan) 2 mg IVP Q4H PRN; Protocol PRN Reason: Symptoms of alcohol withdrawl Last Admin: 04/16/17 16:02 Dose: 2 mg Morphine Sulfate (Morphine) 1 mg IVP Q4H PRN PRN Reason: Pain, moderate (4-7) Last Admin: 04/16/17 15:36 Dose: 1 mg Ondansetron HCl (Zofran Inj) 4 mg IVP Q4H PRN PRN Reason: Nausea/Vomiting Pantoprazole Sodium (Protonix Inj) 40 mg IVP Q12 LUISITO Last Admin: 04/16/17 15:37 Dose: 40 mg Sucralfate (Carafate Oral Susp) 1 gm PO 0630,1130,1630,2200 LUISITO Last Admin: 04/16/17 15:36 Dose: 1 gm - Labs Labs: 04/16/17 06:55 04/16/17 06:55 PT 11.5 SECONDS (9.4-12.5) 04/16/17 06:55 INR 1.00 (0.93-1.08) 04/16/17 06:55 APTT 23.5 Seconds (25.1-36.5) L 04/15/17 14:30 Attending/Attestation - Attestation I have personally seen and examined this patient.: Yes I have fully participated in the care of the patient.: Yes I have reviewed all pertinent clinical information, including history, physical exam and plan: Yes Notes (Text): 04/16/17 17:39 Attending note; Patient seen and examined with resident. Patient is a 50 year old female with significant PMH of alcohol abuse is admitted with binge drinking , nausea vomiting and upper GI bleed. Hemoglobin was 9.8. Hemoglobin dropped to 6.0. Got 1 unit of PRBC transfusion. Status post endoscopy today. EGD showed bleeding esophageal ulcer which was cauterized. Biopsy taken. Patient needs repeat EGD in 2 months. Patient is in mild alcohol withdrawal. Blood pressure is stable. Chronic alcohol abuse; alcohol cessation is strongly advised. Depression; psychiatric evaluation requested. Upon discharge the patient will follow-up with PMD Dr. Romero.
[2017-04-16] MEDS ORDERED: Propofol 10 mg/ml Inj (20 ML) ONE ×3 (13:14→13:40)
[2017-04-16] MEDS ORDERED: Etomidate 20 mg/10ml Inj IV ONE (13:30)
[2017-04-16] MEDS ORDERED: Sodium Chloride 0.9% 1,000 ML IV SCH (14:00)
--- NOTE | 2017-04-16 14:19 | RAD ---
HISTORY: s/p CVC COMPARISON: Earlier same day FINDINGS: LUNGS: There is a right internal jugular line that terminates at the junction of the SVC and right atrium in satisfactory position PLEURA: No significant pleural effusion identified, no pneumothorax apparent. CARDIOVASCULAR: Normal. OSSEOUS STRUCTURES: No significant abnormalities. VISUALIZED UPPER ABDOMEN: Normal. OTHER FINDINGS: None. IMPRESSION: There is a right internal jugular line that terminates at the junction of the SVC and right atrium in satisfactory position
[2017-04-16] MEDS: Sucralfate 1 gm/10 ml Oral Susp UD PO SCH ×2 (15:36→21:11)
[2017-04-16] MEDS: Sodium Chloride 0.9% 1,000 ML IV SCH (15:37)
[2017-04-17] MEDS: Sodium Chloride 0.9% 1,000 ML IV SCH ×4 (01:08→21:32)
[2017-04-17] MEDS: Morphine 2 mg/ml ISec IVP PRN ×4 (03:32→23:27)
[2017-04-17] MEDS: Sucralfate 1 gm/10 ml Oral Susp UD PO SCH ×4 (05:31→21:27)
[2017-04-17 07:38] LABS: BASO # 0.01 K/mm3 (0.0-2.0); BASO % 0.1 % (0.0-3.0); EOS # 0.2 (0.0-0.7); EOS % 1.8 % (1.5-5.0); GRAN # 3.46 (1.4-6.5); GRAN % 41.7 % (50.0-68.0); LYMPH # 4.1 (1.2-3.4); LYMPH % 48.9 % (22.0-35.0); MEAN CORPUSCULAR HEMOGLOBIN 29.7 pg (25.0-35.0); MEAN CORPUSCULAR HGB CONC 32.7 g/dl (31.0-37.0); MEAN PLATELET VOLUME 9.7 fl (7.0-11.0); MONO # 0.6 (0.1-0.6); MONO % 7.5 % (1.0-6.0); RBC 2.22 10^6/uL (3.5-6.1); RED CELL DISTRIBUTION WIDTH 15.9 % (11.5-14.5); WHITE BLOOD COUNT 8.3 10^3/ul (4.5-11.0)
[2017-04-17 07:55] LABS: HEMOGLOBIN 6.6 g/dL (12.0-16.0)
[2017-04-17 07:56] LABS: ALB/GLOB RATIO 1.1 (1.1-1.8); ALBUMIN 2.7 g/dL (3.0-4.8); ALT/SGPT 54 U/L (7-56); AST/SGOT 102 U/L (14-36); BLOOD UREA NITROGEN 8 mg/dL (7-21); CALCIUM 8.6 mg/dL (8.4-10.5); GFR AFRICAN-AMERICAN > 60; GFR NON-AFRICAN AMERICAN > 60
--- NOTE | 2017-04-17 09:39 | CON ---
DATE: 04/16/2017 She is being seen today for a consultation. My co-signer is Dr. Marti. PRESENTATION: The patient is a 51-year-old -[place] female seen at bedside. The patient was admitted to the hospital on 04/15/2017 for complaints of multiple episodes of nausea and vomiting with upper abdominal pain and mid-back pain associated. She also indicated that her last drink was 2 days ago, but sometimes she can drink as much as 3 liters in a day about once weekly. Last drink was 2 days ago and she goes into a throe when she does not drink. Consult was ordered for depression and binge drinking. The patient is actually known to me. She was seen by me on 04/08/2017 for a psychiatric evaluation for essentially the same issue. 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 She did not follow through on any of these and indicates to me again today as she did the last time, that she does not have a problem with alcohol - she is not an alcoholic, that her problem is stress and that she needs to work on her stress. She appears to have difficulty in figuring out on how to ask for help or organizing any assistance from family members or others. She does have a girlfriend, who stays with her and her father and is helpful with the situation. The patient indicates that she only drinks when she gets angry and her anger is related to depression. She indicates that she does feel that she is depressed underneath and that she is willing to try to treat the depression. I talked with the patient about possibly signing into the psychiatric unit once she is medically cleared after the period of danger for DT is over. The patient at this point states that she is willing; however, I will continue to follow and see what she would like to do as time goes on. The patient indicates that she has never had any treatment for depression other than seeing a psychiatrist once at [facility] when she went in for depression. She medically is having some difficulties with the movement, which are related to the alcohol or alcohol use, some of what she has been treated for in the recent past are colitis, esophagitis, intractable vomiting, and hypertension. She states that she has a hard time taking care of herself. She states that alcohol is problematic and does intellectually understand that it is causing problems for her, but is resistant to change. She does smoke occasionally, indicates that it is helpful to her and it is not something that she sees as a problem that she would want to give it up. She has no legal history. She has never been in the , has no access to guns, and denies any family history of mental health history; however, she grew up in [place] of an intact family. She has #3 of 7 siblings. One brother just hang himself, but the patient is unaware of the circumstances surrounding that. He was an adolescent and had been living on his own, so there was no clear-cut answer in terms of why it happened and no knowledge of him being depressed. She indicates her childhood was good, she was happy. 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 She has 2 adult children and 3 grandchildren - she has relationships with all of them. She is off and on involved with the father of the children - he has been supportive of the family even though they were not together. She is close to one of her sisters. She is a Anabaptist, but has not been going to the Yarsanism - does not have a big support system. The patient recently received transfusion due to low hemoglobin levels. She had coffee-ground emesis upon admission, so this is in replenishment of that. PHYSICAL EXAMINATION: GENERAL: Text. VITAL SIGNS: Currently, temperature of 97.9, pulse of 110, blood pressure of 124/84, and respiratory rate of 18. MENTAL STATUS EXAMINATION: The patient is alert. She is oriented x3. Her eye contact is fair. Her behavior is cooperative. Speech rate and volume are within normal limits. Mood is blunted. Affect is constricted. Thoughts are goal-directed. She denies being suicidal or homicidal. Denies the presence of hallucinations, delusions, or paranoia. Concentration and focus, she reports are good. Her memory, both short and long-term appears to be adequate. Her appetite and her sleep are disrupted. DIAGNOSTIC IMPRESSION: Mood disorder - unspecified, alcohol dependence. PLAN: The patient denies being suicidal or homicidal, did not appear in any imminent danger of hurting herself or others. She is contemplating possibly signing into the Psychiatric Unit once she is medically cleared and past the stage where she may go into acute withdrawal. We will continue to follow. Thank you for the consult. Marjorie Aldridge APN
--- NOTE | 2017-04-17 11:39 | CP.PCM.PN ---
<Chanelle Odom - Last Filed: 04/17/17 11:39> Subjective - Date & Time of Evaluation Date of Evaluation: 04/17/17 Time of Evaluation: 08:00 - Subjective Subjective: PGY4 GI Follow-up Pt seen and examined bedside No reports of Bloody BM overnight tolerating liquid ROS: no other complaints Objective - Vital Signs/Intake and Output Vital Signs (last 24 hours): Temp Pulse Resp BP Pulse Ox 98.7 F 98 H 18 106/72 100 04/17/17 06:00 04/17/17 10:00 04/17/17 06:00 04/17/17 06:00 04/17/17 06:00 Intake and Output: 04/17/17 04/17/17 06:59 18:59 Intake Total 1200 480 Balance 1200 480 - Medications Medications: Current Medications Sodium Chloride (Sodium Chloride 0.9%) 1,000 mls @ 100 mls/hr IV .Q10H [facility] Last Admin: 04/17/17 04:00 Dose: 100 mls/hr Lorazepam (Ativan) 2 mg IVP Q4H PRN; Protocol PRN Reason: Symptoms of alcohol withdrawl Last Admin: 04/17/17 10:42 Dose: 2 mg Morphine Sulfate (Morphine) 1 mg IVP Q4H PRN PRN Reason: Pain, moderate (4-7) Last Admin: 04/17/17 07:55 Dose: 1 mg Ondansetron HCl (Zofran Inj) 4 mg IVP Q4H PRN PRN Reason: Nausea/Vomiting Pantoprazole Sodium (Protonix Inj) 40 mg IVP Q12 [facility] Last Admin: 04/17/17 10:43 Dose: 40 mg Sucralfate (Carafate Oral Susp) 1 gm PO 0630,1130,1630,2200 [facility] Last Admin: 04/17/17 05:31 Dose: 1 gm - Labs Labs: 04/17/17 06:30 04/17/17 06:30 PT 11.5 SECONDS (9.4-12.5) 04/16/17 06:55 INR 1.00 (0.93-1.08) 04/16/17 06:55 APTT 23.5 Seconds (25.1-36.5) L 04/15/17 14:30 - Constitutional Appears: Well, No Acute Distress - Head Exam Head Exam: ATRAUMATIC - Eye Exam Eye Exam: Normal appearance - ENT Exam ENT Exam: Mucous Membranes Moist, Normal Exam - Neck Exam Neck Exam: Normal Inspection - Respiratory Exam Respiratory Exam: Clear to Ausculation Bilateral, NORMAL BREATHING PATTERN. absent: Rales, Rhonchi, Wheezes, Respiratory Distress - Cardiovascular Exam Cardiovascular Exam: REGULAR RHYTHM, +S1, +S2 - Extremities Exam Extremities Exam: absent: Joint Swelling, Pedal Edema - Neurological Exam Neurological Exam: Alert, Awake, Oriented x3 - Psychiatric Exam Psychiatric exam: Normal Affect, Normal Mood - Skin Skin Exam: Dry, Intact, Normal Color, Warm Assessment and Plan - Assessment and Plan (Free Text) Assessment: Celeste Pickard is a 51F w/ a hx of ETOH abuse who presents to the ER with complaints of coffee-grounds and melena Anemia 2/2 GI bleed Esophageal Ulcer w/ visible vessel, s/p cautery and injection Melena alcohol abuse Plan: -continue PPI drip -keep hgb > 7 -hgb probably normalizing, observe for an addtional day aet 1 unit transusion -s/p triple lumen -advance to full liquid -advised alcohol cessation -alcohol withdrawl protocol -consent in chart -avoid NSAIDs D/W Dr. Faustin <Lance Faustin - Last Filed: 04/17/17 12:18> Objective - Vital Signs/Intake and Output Vital Signs (last 24 hours): Temp Pulse Resp BP Pulse Ox 98.7 F 98 H 18 106/72 100 04/17/17 06:00 04/17/17 10:00 04/17/17 06:00 04/17/17 06:00 04/17/17 06:00 Intake and Output: 04/17/17 04/17/17 06:59 18:59 Intake Total 1200 480 Balance 1200 480 - Medications Medications: Current Medications Sodium Chloride (Sodium Chloride 0.9%) 1,000 mls @ 100 mls/hr IV .Q10H [facility] Last Admin: 04/17/17 04:00 Dose: 100 mls/hr Lorazepam (Ativan) 2 mg IVP Q4H PRN; Protocol PRN Reason: Symptoms of alcohol withdrawl Last Admin: 04/17/17 10:42 Dose: 2 mg Morphine Sulfate (Morphine) 1 mg IVP Q4H PRN PRN Reason: Pain, moderate (4-7) Last Admin: 04/17/17 07:55 Dose: 1 mg Ondansetron HCl (Zofran Inj) 4 mg IVP Q4H PRN PRN Reason: Nausea/Vomiting Pantoprazole Sodium (Protonix Inj) 40 mg IVP Q12 [facility] Last Admin: 04/17/17 10:43 Dose: 40 mg Sucralfate (Carafate Oral Susp) 1 gm PO 0630,1130,1630,2200 [facility] Last Admin: 04/17/17 05:31 Dose: 1 gm - Labs Labs: 04/17/17 06:30 04/17/17 06:30 PT 11.5 SECONDS (9.4-12.5) 04/16/17 06:55 INR 1.00 (0.93-1.08) 04/16/17 06:55 APTT 23.5 Seconds (25.1-36.5) L 04/15/17 14:30 Attending/Attestation - Attestation I have personally seen and examined this patient.: Yes I have fully participated in the care of the patient.: Yes I have reviewed all pertinent clinical information, including history, physical exam and plan: Yes Notes (Text): 04/17/17 12:16 I have seen and examined patient with GI fellow and medical billing coordinator. She is seen ambulating in room, appears comfortable. No acute events overnight, she denies abdominal pain, nausea, vomiting. Tolerating PO liquids without difficulty. One dark brown colored bowel movement overnight. Review of vitals from today shows tachycardia. ETOH abuse Anemia Melena - s/p EGD showing esophageal ulcer with visible vessel s/p epinephrine and thermal therapy - Full liquid diet as tolerated - H/H stable, suggest administering 1 U PRBC and continued monitoring - Continue with PPI and carafate therapies - ETOH cessation counseling - Will continue to monitor patient clinical course
--- NOTE | 2017-04-17 15:11 | CP.PCM.PN ---
<Bety Mckinnon - Last Filed: 04/17/17 15:14> Subjective - Date & Time of Evaluation Date of Evaluation: 04/17/17 Time of Evaluation: 07:30 - Subjective Subjective: Bety Mckinnon DO PGY1 - IM Progress Note Patient seen and examined at bedside. No acute events overnight. Patient is s/p EGD yesterday, in which she was found to have a 5cm bleeding esophageal ulcer with a prominant superficial vessel. Patient reports feeling slightly better overall, no further episodes of emesis or hemoptysis. Slight improvement in her back pain. Patient is requesting advancement of her diet. She denies any chest pain, shortness of breath, abdominal pain, diarrhea, constipation, fever, or chills. Objective - Vital Signs/Intake and Output Vital Signs (last 24 hours): Temp Pulse Resp BP Pulse Ox 98.7 F 103 H 20 125/85 98 04/17/17 14:37 04/17/17 14:37 04/17/17 14:37 04/17/17 14:37 04/17/17 12:00 Intake and Output: 04/17/17 04/17/17 06:59 18:59 Intake Total 1200 480 Balance 1200 480 - Medications Medications: Current Medications Sodium Chloride (Sodium Chloride 0.9%) 1,000 mls @ 100 mls/hr IV .Q10H [facility] Last Admin: 04/17/17 04:00 Dose: 100 mls/hr Lorazepam (Ativan) 2 mg IVP Q4H PRN; Protocol PRN Reason: Symptoms of alcohol withdrawl Last Admin: 04/17/17 10:42 Dose: 2 mg Morphine Sulfate (Morphine) 1 mg IVP Q4H PRN PRN Reason: Pain, moderate (4-7) Last Admin: 04/17/17 14:39 Dose: 1 mg Ondansetron HCl (Zofran Inj) 4 mg IVP Q4H PRN PRN Reason: Nausea/Vomiting Pantoprazole Sodium (Protonix Inj) 40 mg IVP Q12 [facility] Last Admin: 04/17/17 10:43 Dose: 40 mg Sucralfate (Carafate Oral Susp) 1 gm PO 0630,1130,1630,2200 [facility] Last Admin: 04/17/17 12:34 Dose: 1 gm - Labs Labs: 04/17/17 06:30 04/17/17 06:30 PT 11.5 SECONDS (9.4-12.5) 04/16/17 06:55 INR 1.00 (0.93-1.08) 04/16/17 06:55 APTT 23.5 Seconds (25.1-36.5) L 04/15/17 14:30 - Additional Findings Additional findings: - Constitutional Appears: Non-toxic, No Acute Distress - Head Exam Head Exam: ATRAUMATIC, NORMOCEPHALIC - Eye Exam Eye Exam: EOMI, Normal appearance, PERRL - ENT Exam ENT Exam: Mucous Membranes Moist - Neck Exam Neck Exam: Normal Inspection - Respiratory Exam Respiratory Exam: Clear to Ausculation Bilateral, NORMAL BREATHING PATTERN - Cardiovascular Exam Cardiovascular Exam: RRR, +S1, +S2 - GI/Abdominal Exam GI & Abdominal Exam: Soft, Tenderness (mild, epigastric), Normal Bowel Sounds - Extremities Exam Extremities Exam: absent: Calf Tenderness, Pedal Edema - Neurological Exam Neurological Exam: Alert, Awake, Oriented x3 - Psychiatric Exam Psychiatric exam: Normal Affect, Normal Mood - Skin Skin Exam: Dry, Intact, Normal Color Assessment and Plan - Assessment and Plan (Free Text) Assessment: 51 year old AA female who presented to the ED with complaint of nausea, vomiting , hematemesis, back pain, abdominal pain, and EtOH abuse. Active treatment for alcohol withdrawal and UGIB. s/p EGD which showed 5cm bleeding esophageal ulcer with visible vessel, s/p epinephrine and thermal therapy Plan: 1. Hematemesis 2/2 bleeding esophageal ulcer -No further episodes of hematemesis since admission; VSS -EGD which showed 5cm bleeding esophageal ulcer with visible vessel, s/p epinephrine and thermal therapy; also showed esophagitis, gastritis, and hiatal hernia -H&H again low -Will transfuse 1u PRBC and recheck H&H 2 hours after transfusion -Continue Protonix drip -Clear liquid diet -Continue to monitor on telemetry -GI consult requested; appreciate recs 2. Abdominal Pain and back pain -Likely secondary to gastritis, esophagitis, and esophageal ulcer -Continues to complain of the same, slightly improved since yesterday -Morphine 1mg IV PRN -Zofran -PPI drip, as above 3. Alcohol Abuse -Ativan -CIWA protocol -Seizure precautions -Aspiration precaution -MV, thiamine and folic acid 4. Depressive Symptoms/Alcohol Abuse -Psych Consulted, follow recs GI/DVT -protonix -SCD (avoid anticoagulants in likely GIB) Patient was seen, examined and discussed with attending, Dr. Heredia <Dev Heredia - Last Filed: 04/18/17 15:15> Objective - Vital Signs/Intake and Output Vital Signs (last 24 hours): Temp Pulse Resp BP Pulse Ox 98.3 F 91 H 15 133/80 99 04/18/17 12:00 04/18/17 12:00 04/18/17 12:00 04/18/17 12:00 04/18/17 06:00 Intake and Output: 04/18/17 04/18/17 06:59 18:59 Intake Total 1440 Output Total 600 Balance 840 - Labs Labs: 04/18/17 07:00 04/18/17 07:00 PT 11.5 SECONDS (9.4-12.5) 04/16/17 06:55 INR 1.00 (0.93-1.08) 04/16/17 06:55 APTT 23.5 Seconds (25.1-36.5) L 04/15/17 14:30 Attending/Attestation - Attestation I have personally seen and examined this patient.: Yes I have fully participated in the care of the patient.: Yes I have reviewed all pertinent clinical information, including history, physical exam and plan: Yes Notes (Text): 04/18/17 15:11 Attending note; Patient seen and examined with resident. Patient is a 50 year old female with significant PMH of alcohol abuse is admitted with binge drinking , nausea vomiting and upper GI bleed. Got 2 units of PRBC transfusion. Status post endoscopy today. EGD showed bleeding esophageal ulcer which was cauterized. Biopsy taken. Patient needs repeat EGD in 2 months. advised to follow-up with . alcohol withdrawal; on Ativan when necessary. Chronic alcohol abuse; alcohol cessation is strongly advised. Depression; psychiatric evaluation appreciated. patient is tolerating clear liquid diet well. advance as tolerated. patient will be given prescription for Protonix and Carafate. denies any nausea, vomiting. Upon discharge the patient will follow-up with PMD Dr. Romero.
[2017-04-17 20:02] LABS: HEMOGLOBIN 8.1 g/dL (12.0-16.0); MEAN CELL VOLUME 89.9 fl (80.0-105.0); MEAN CORPUSCULAR HEMOGLOBIN 30.2 pg (25.0-35.0); MEAN CORPUSCULAR HGB CONC 33.6 g/dl (31.0-37.0); MEAN PLATELET VOLUME 9.7 fl (7.0-11.0); RBC 2.68 10^6/uL (3.5-6.1); RED CELL DISTRIBUTION WIDTH 15.5 % (11.5-14.5); WHITE BLOOD COUNT 8.7 10^3/ul (4.5-11.0)
[2017-04-18] MEDS: Sodium Chloride 0.9% 1,000 ML IV SCH (03:30)
[2017-04-18] MEDS: Morphine 2 mg/ml ISec IVP PRN (03:33)
[2017-04-18] MEDS: Sucralfate 1 gm/10 ml Oral Susp UD PO SCH ×2 (06:25→11:08)
[2017-04-18 07:06] VITALS: O2SAT 99
[2017-04-18 07:13] LABS: BASO # 0.01 K/mm3 (0.0-2.0); BASO % 0.1 % (0.0-3.0); EOS # 0.2 (0.0-0.7); GRAN # 3.54 (1.4-6.5); GRAN % 46.3 % (50.0-68.0); LYMPH # 3.4 (1.2-3.4); MEAN CELL VOLUME 90.3 fl (80.0-105.0); MEAN CORPUSCULAR HEMOGLOBIN 29.8 pg (25.0-35.0); MEAN PLATELET VOLUME 9.2 fl (7.0-11.0); MONO # 0.6 (0.1-0.6); MONO % 7.6 % (1.0-6.0); RBC 2.58 10^6/uL (3.5-6.1); RED CELL DISTRIBUTION WIDTH 15.9 % (11.5-14.5); WHITE BLOOD COUNT 7.6 10^3/ul (4.5-11.0)
[2017-04-18 07:15] LABS: HEMOGLOBIN 7.7 g/dL (12.0-16.0)
[2017-04-18 07:25] LABS: ALB/GLOB RATIO 1.1 (1.1-1.8); ALBUMIN 2.6 g/dL (3.0-4.8); ALT/SGPT 58 U/L (7-56); AST/SGOT 73 U/L (14-36); BLOOD UREA NITROGEN 3 mg/dL (7-21); CALCIUM 8.5 mg/dL (8.4-10.5); GFR AFRICAN-AMERICAN > 60; GFR NON-AFRICAN AMERICAN > 60
[2017-04-18 12:22] VITALS: BP 133/80; PULSE 91; RESP 15; TEMP 98.3
--- NOTE | 2017-04-18 12:35 | CP.PCM.DIS ---
<Francy Herbert - Last Filed: 04/18/17 15:54> Provider - Provider Date of Admission: 04/15/17 16:43 Attending physician: Donovan Ayala MD Primary care physician: Jesus Romero MD Consults: GI- Dr. Faustin Psych- Dr. Yu Time Spent in preparation of Discharge (in minutes): 45 Hospital Course - Lab Results Lab Results: Most Recent Lab Values WBC 7.6 10^3/ul (4.5-11.0) 04/18/17 07:00 RBC 2.58 10^6/uL (3.5-6.1) L 04/18/17 07:00 Hgb 7.7 g/dL (12.0-16.0) L 04/18/17 07:00 Hct 23.3 % (36.0-48.0) L 04/18/17 07:00 MCV 90.3 fl (80.0-105.0) 04/18/17 07:00 MCH 29.8 pg (25.0-35.0) 04/18/17 07:00 MCHC 33.0 g/dl (31.0-37.0) 04/18/17 07:00 RDW 15.9 % (11.5-14.5) H 04/18/17 07:00 Plt Count 232 10^3/uL (120.0-450.0) 04/18/17 07:00 MPV 9.2 fl (7.0-11.0) 04/18/17 07:00 Gran % 46.3 % (50.0-68.0) L 04/18/17 07:00 Lymph % (Auto) 44.0 % (22.0-35.0) H 04/18/17 07:00 Brewster % (Auto) 7.6 % (1.0-6.0) H 04/18/17 07:00 Eos % (Auto) 2.0 % (1.5-5.0) 04/18/17 07:00 Baso % (Auto) 0.1 % (0.0-3.0) 04/18/17 07:00 Gran # 3.54 (1.4-6.5) 04/18/17 07:00 Lymph # (Auto) 3.4 (1.2-3.4) 04/18/17 07:00 Brewster # (Auto) 0.6 (0.1-0.6) 04/18/17 07:00 Eos # (Auto) 0.2 (0.0-0.7) 04/18/17 07:00 Baso # (Auto) 0.01 K/mm3 (0.0-2.0) 04/18/17 07:00 PT 11.5 SECONDS (9.4-12.5) 04/16/17 06:55 INR 1.00 (0.93-1.08) 04/16/17 06:55 APTT 23.5 Seconds (25.1-36.5) L 04/15/17 14:30 pO2 33 mm/Hg (30-55) 04/15/17 22:05 VBG pH 7.47 (7.32-7.43) H 04/15/17 22:05 VBG pCO2 44.0 (40-60) 04/15/17 22:05 VBG HCO3 32.0 mmol/l (21-28) H 04/15/17 22:05 VBG Total CO2 33.4 mmol.L (22-28) H 04/15/17 22:05 VBG O2 Sat (Calc) 69.3 % (40-65) H 04/15/17 22:05 VBG Base Excess 7.4 mmol/L (0.0-2.0) H 04/15/17 22:05 VBG Potassium 3.6 mmol/L (3.6-5.2) 04/15/17 22:05 Sodium 139.0 mmol/L (132-148) 04/15/17 22:05 Chloride 104.0 mmol/L (98-107) 04/15/17 22:05 Glucose 104 mg/dl (65-105) 04/15/17 22:05 Lactate 1.4 mmol/L (0.7-2.1) 04/15/17 22:05 FiO2 21.0 % 04/15/17 22:05 Sodium 141 mmol/L (132-148) 04/18/17 07:00 Potassium 3.9 mmol/L (3.6-5.0) 04/18/17 07:00 Chloride 110 mmol/L (98-107) H 04/18/17 07:00 Carbon Dioxide 25 mmol/L (21-33) 04/18/17 07:00 Anion Gap 10 (10-20) 04/18/17 07:00 BUN 3 mg/dL (7-21) L 04/18/17 07:00 Creatinine 0.6 mg/dl (0.7-1.2) L 04/18/17 07:00 Est GFR ( Amer) > 60 04/18/17 07:00 Est GFR (Non-Af Amer) > 60 04/18/17 07:00 Random Glucose 86 mg/dL (70-110) 04/18/17 07:00 Calcium 8.5 mg/dL (8.4-10.5) 04/18/17 07:00 Phosphorus 2.7 mg/dL (2.5-4.5) 04/16/17 06:55 Magnesium 1.9 mg/dL (1.7-2.2) 04/16/17 06:55 Total Bilirubin 0.2 mg/dL (0.2-1.3) 04/18/17 07:00 AST 73 U/L (14-36) H D 04/18/17 07:00 ALT 58 U/L (7-56) H 04/18/17 07:00 Alkaline Phosphatase 70 U/L (38-126) 04/18/17 07:00 Lactate Dehydrogenase 487 U/L (333-699) 04/15/17 14:30 Total Creatine Kinase 68 U/L (35-230) 04/15/17 14:30 Troponin I 0.01 ng/mL D 04/15/17 14:30 Total Protein 5.1 g/dL (5.8-8.3) L 04/18/17 07:00 Albumin 2.6 g/dL (3.0-4.8) L 04/18/17 07:00 Globulin 2.4 gm/dL 04/18/17 07:00 Albumin/Globulin Ratio 1.1 (1.1-1.8) 04/18/17 07:00 Amylase 55 U/L (35-125) 04/15/17 14:30 Lipase 46 U/L (23-300) 04/15/17 14:30 Beta HCG, Quant < 2.39 mIU/mL (0-6.15) 02/07/18 14:30 Venous Blood Potassium 3.6 mmol/L (3.6-5.2) 04/15/17 22:05 Urine Color Yellow (YELLOW) 04/15/17 16:54 Urine Appearance Sl cloudy (CLEAR) 04/15/17 16:54 Urine pH 8.5 (4.7-8.0) 04/15/17 16:54 Ur Specific Mott 1.010 (1.005-1.035) 04/15/17 16:54 Urine Protein Negative mg/dL (<30 mg/dL) 04/15/17 16:54 Urine Glucose (UA) Negative mg/dL (NEGATIVE) 04/15/17 16:54 Urine Ketones Negative mg/dL (NEGATIVE) 04/15/17 16:54 Urine Blood Trace-intact (NEGATIVE) H 04/15/17 16:54 Urine Nitrate Negative (NEGATIVE) 04/15/17 16:54 Urine Bilirubin Negative (NEGATIVE) 04/15/17 16:54 Urine Urobilinogen 0.2 E.U./dL (<1 E.U./dL) 04/15/17 16:54 Ur Leukocyte Esterase Negative Darwin/uL (NEGATIVE) 04/15/17 16:54 Urine RBC 0 - 2 /hpf (0-2) 04/15/17 16:54 Urine WBC 2 - 5 /hpf (0-6) 04/15/17 16:54 Ur Epithelial Cells 4 - 5 /hpf (0-5) 04/15/17 16:54 Amorphous Sediment Moderate 04/15/17 16:54 Urine Bacteria Mod (NEG) 04/15/17 16:54 Urine HCG, Qual Negative (NEGATIVE) 04/15/17 16:54 Salicylates < 1 mg/dL (2.0-20.0) L 04/15/17 14:30 Urine Opiates Screen Negative (NEGATIVE) 04/15/17 16:54 Urine Methadone Screen Negative (NEGATIVE) 04/15/17 16:54 Acetaminophen < 10.0 ug/ml (10.0-20.0) L 04/15/17 14:30 Ur Barbiturates Screen Negative (NEGATIVE) 04/15/17 16:54 Ur Phencyclidine Scrn Negative (NEGATIVE) 04/15/17 16:54 Ur Amphetamines Screen Negative (NEGATIVE) 04/15/17 16:54 U Benzodiazepines Scrn Negative (NEGATIVE) 04/15/17 16:54 U Oth Cocaine Metabols Negative (NEGATIVE) 04/15/17 16:54 U Cannabinoids Screen Negative (NEGATIVE) 04/15/17 16:54 Alcohol, Quantitative < 10 mg/dL (0-10) 04/15/17 14:30 Influenza Typ A,B (EIA) Negative for flu a/b (NEGATIVE) 04/15/17 14:30 Blood Type B POSITIVE 04/15/17 22:05 Blood Type Confirm B POSITIVE 04/16/17 01:50 Antibody Screen Negative 04/15/17 22:05 Crossmatch See Detail 04/15/17 22:05 BBK History Checked No verified bt 04/15/17 22:05 - Hospital Course Hospital Course: 50 year old female with no significant PMH who presents to the ED complaining of nausea and vomiting. Her symptoms started today and she had multiple bouts of emesis today, "was not able to keep anything down." She states the emesis is dark and bloody. She is also complaining of upper abdominal pain, heartburn, and back pain, that started after several episodes of wretching and vomiting. She denies hematochezia or melena. She denies fever, chills, chest pain, shortness of breath, confusion, headache, fall, recent trauma, cough, night sweats, weight loss. She is repeatedly asking for pain medication. She does not take anything for pain at home. Last drink was 2 days ago. She claims to drink only when she is angry, but binge drinks as much as 3 liters in a day, about once weekly. She says that she does go into withdrawal when she doesn't drink. Pt was admitted for active treatment for alcohol withdrawal and UGIB. s/p EGD which showed 5cm bleeding esophageal ulcer with visible vessel, s/p epinephrine and thermal therapy. No further episodes of hematemesis since admission; vitals have been stable. EGD which showed 5cm bleeding esophageal ulcer with visible vessel, s/p epinephrine and thermal therapy; also showed esophagitis, gastritis , and hiatal hernia. Hgb was low and subsequently transfused total of 2 units. Protonix drip initiated. Diet was advanced as per GI as tolerated. Pt tolerated regular diet. Pt was counselled for alcohol Abuse. Information was provided regarding seeking further help. Pt was strongly encouraged to refrain from drinking etoh. Upon discharge, pt is to fu with Dr. Romero and GI Dr Cook. Discharge Exam - Head Exam Head Exam: ATRAUMATIC - Eye Exam Eye Exam: EOMI, Normal appearance, PERRL Pupil Exam: NORMAL ACCOMODATION, PERRL - ENT Exam ENT Exam: Mucous Membranes Moist - Respiratory Exam Respiratory Exam: Clear to PA & Lateral, NORMAL BREATHING PATTERN, UNREMARKABLE - Cardiovascular Exam Cardiovascular Exam: REGULAR RHYTHM, +S1, +S2 - GI/Abdominal Exam GI & Abdominal Exam: Normal Bowel Sounds, Soft. absent: Tenderness - Extremities Exam Extremities exam: normal inspection - Neurological Exam Neurological exam: Alert, CN II-XII Intact, Normal Gait, Oriented x3, Reflexes Normal - Psychiatric Exam Psychiatric exam: Normal Affect, Normal Mood - Skin Skin Exam: Dry, Intact, Normal Color, Warm Discharge Plan - Discharge Medications Prescriptions: chlordiazePOXIDE [Librium] 10 mg PO Q8 #21 cap Folic Acid 1 mg PO DAILY #30 tab Multivitamin Therapeutic Tab [Thera Tab] 1 tab PO 0800 #30 tab Pantoprazole [Protonix] 40 mg PO BID #60 ect Sucralfate [Carafate Oral Susp] 1 gm PO 0630,1130,1630,2200 #1 bottle Thiamine [Vitamin B1 Tab] 100 mg PO DAILY #30 tab - Follow Up Plan Condition: SERIOUS Disposition: HOME/ ROUTINE Instructions: Gastrointestinal Bleeding (DC) Additional Instructions: 1. Pt is to FU with PMD Dr. Romero within 3-5 days 2. Pt is to Fu with GI Dr Cook within 3-5 days 3. Pt is counselled and encouraged to refrain from drinking alcohol 4. Pt is to take medications a prescribed. 5. Pt is welcome to return to [facility] ED if symptoms change or worsen Referrals: Jesus Romero MD [Primary Care Provider] - Orlando Cook MD [Staff Provider] - <Dev Heredia - Last Filed: 04/18/17 17:02> Provider - Provider Date of Admission: 04/15/17 16:43 Attending physician: Donovan Ayala MD Primary care physician: Jesus Romero MD Hospital Course - Lab Results Lab Results: Most Recent Lab Values WBC 7.6 10^3/ul (4.5-11.0) 04/18/17 07:00 RBC 2.58 10^6/uL (3.5-6.1) L 04/18/17 07:00 Hgb 7.7 g/dL (12.0-16.0) L 04/18/17 07:00 Hct 23.3 % (36.0-48.0) L 04/18/17 07:00 MCV 90.3 fl (80.0-105.0) 04/18/17 07:00 MCH 29.8 pg (25.0-35.0) 04/18/17 07:00 MCHC 33.0 g/dl (31.0-37.0) 04/18/17 07:00 RDW 15.9 % (11.5-14.5) H 04/18/17 07:00 Plt Count 232 10^3/uL (120.0-450.0) 04/18/17 07:00 MPV 9.2 fl (7.0-11.0) 04/18/17 07:00 Gran % 46.3 % (50.0-68.0) L 04/18/17 07:00 Lymph % (Auto) 44.0 % (22.0-35.0) H 04/18/17 07:00 Brewster % (Auto) 7.6 % (1.0-6.0) H 04/18/17 07:00 Eos % (Auto) 2.0 % (1.5-5.0) 04/18/17 07:00 Baso % (Auto) 0.1 % (0.0-3.0) 04/18/17 07:00 Gran # 3.54 (1.4-6.5) 04/18/17 07:00 Lymph # (Auto) 3.4 (1.2-3.4) 04/18/17 07:00 Brewster # (Auto) 0.6 (0.1-0.6) 04/18/17 07:00 Eos # (Auto) 0.2 (0.0-0.7) 04/18/17 07:00 Baso # (Auto) 0.01 K/mm3 (0.0-2.0) 04/18/17 07:00 PT 11.5 SECONDS (9.4-12.5) 04/16/17 06:55 INR 1.00 (0.93-1.08) 04/16/17 06:55 APTT 23.5 Seconds (25.1-36.5) L 04/15/17 14:30 pO2 33 mm/Hg (30-55) 04/15/17 22:05 VBG pH 7.47 (7.32-7.43) H 04/15/17 22:05 VBG pCO2 44.0 (40-60) 04/15/17 22:05 VBG HCO3 32.0 mmol/l (21-28) H 04/15/17 22:05 VBG Total CO2 33.4 mmol.L (22-28) H 04/15/17 22:05 VBG O2 Sat (Calc) 69.3 % (40-65) H 04/15/17 22:05 VBG Base Excess 7.4 mmol/L (0.0-2.0) H 04/15/17 22:05 VBG Potassium 3.6 mmol/L (3.6-5.2) 04/15/17 22:05 Sodium 139.0 mmol/L (132-148) 04/15/17 22:05 Chloride 104.0 mmol/L (98-107) 04/15/17 22:05 Glucose 104 mg/dl (65-105) 04/15/17 22:05 Lactate 1.4 mmol/L (0.7-2.1) 04/15/17 22:05 FiO2 21.0 % 04/15/17 22:05 Sodium 141 mmol/L (132-148) 04/18/17 07:00 Potassium 3.9 mmol/L (3.6-5.0) 04/18/17 07:00 Chloride 110 mmol/L (98-107) H 04/18/17 07:00 Carbon Dioxide 25 mmol/L (21-33) 04/18/17 07:00 Anion Gap 10 (10-20) 04/18/17 07:00 BUN 3 mg/dL (7-21) L 04/18/17 07:00 Creatinine 0.6 mg/dl (0.7-1.2) L 04/18/17 07:00 Est GFR ( Amer) > 60 04/18/17 07:00 Est GFR (Non-Af Amer) > 60 04/18/17 07:00 Random Glucose 86 mg/dL (70-110) 04/18/17 07:00 Calcium 8.5 mg/dL (8.4-10.5) 04/18/17 07:00 Phosphorus 2.7 mg/dL (2.5-4.5) 04/16/17 06:55 Magnesium 1.9 mg/dL (1.7-2.2) 04/16/17 06:55 Total Bilirubin 0.2 mg/dL (0.2-1.3) 04/18/17 07:00 AST 73 U/L (14-36) H D 04/18/17 07:00 ALT 58 U/L (7-56) H 04/18/17 07:00 Alkaline Phosphatase 70 U/L (38-126) 04/18/17 07:00 Lactate Dehydrogenase 487 U/L (333-699) 04/15/17 14:30 Total Creatine Kinase 68 U/L (35-230) 04/15/17 14:30 Troponin I 0.01 ng/mL D 04/15/17 14:30 Total Protein 5.1 g/dL (5.8-8.3) L 04/18/17 07:00 Albumin 2.6 g/dL (3.0-4.8) L 04/18/17 07:00 Globulin 2.4 gm/dL 04/18/17 07:00 Albumin/Globulin Ratio 1.1 (1.1-1.8) 04/18/17 07:00 Amylase 55 U/L (35-125) 04/15/17 14:30 Lipase 46 U/L (23-300) 04/15/17 14:30 Beta HCG, Quant < 2.39 mIU/mL (0-6.15) 04/15/17 14:30 Venous Blood Potassium 3.6 mmol/L (3.6-5.2) 04/15/17 22:05 Urine Color Yellow (YELLOW) 04/15/17 16:54 Urine Appearance Sl cloudy (CLEAR) 04/15/17 16:54 Urine pH 8.5 (4.7-8.0) 04/15/17 16:54 Ur Specific Mott 1.010 (1.005-1.035) 04/15/17 16:54 Urine Protein Negative mg/dL (<30 mg/dL) 04/15/17 16:54 Urine Glucose (UA) Negative mg/dL (NEGATIVE) 04/15/17 16:54 Urine Ketones Negative mg/dL (NEGATIVE) 04/15/17 16:54 Urine Blood Trace-intact (NEGATIVE) H 04/15/17 16:54 Urine Nitrate Negative (NEGATIVE) 04/15/17 16:54 Urine Bilirubin Negative (NEGATIVE) 04/15/17 16:54 Urine Urobilinogen 0.2 E.U./dL (<1 E.U./dL) 04/15/17 16:54 Ur Leukocyte Esterase Negative Darwin/uL (NEGATIVE) 04/15/17 16:54 Urine RBC 0 - 2 /hpf (0-2) 04/15/17 16:54 Urine WBC 2 - 5 /hpf (0-6) 04/15/17 16:54 Ur Epithelial Cells 4 - 5 /hpf (0-5) 04/15/17 16:54 Amorphous Sediment Moderate 04/15/17 16:54 Urine Bacteria Mod (NEG) 04/15/17 16:54 Urine HCG, Qual Negative (NEGATIVE) 04/15/17 16:54 Salicylates < 1 mg/dL (2.0-20.0) L 04/15/17 14:30 Urine Opiates Screen Negative (NEGATIVE) 04/15/17 16:54 Urine Methadone Screen Negative (NEGATIVE) 04/15/17 16:54 Acetaminophen < 10.0 ug/ml (10.0-20.0) L 04/15/17 14:30 Ur Barbiturates Screen Negative (NEGATIVE) 04/15/17 16:54 Ur Phencyclidine Scrn Negative (NEGATIVE) 04/15/17 16:54 Ur Amphetamines Screen Negative (NEGATIVE) 04/15/17 16:54 U Benzodiazepines Scrn Negative (NEGATIVE) 04/15/17 16:54 U Oth Cocaine Metabols Negative (NEGATIVE) 04/15/17 16:54 U Cannabinoids Screen Negative (NEGATIVE) 04/15/17 16:54 Alcohol, Quantitative < 10 mg/dL (0-10) 04/15/17 14:30 Influenza Typ A,B (EIA) Negative for flu a/b (NEGATIVE) 04/15/17 14:30 Blood Type B POSITIVE 04/15/17 22:05 Blood Type Confirm B POSITIVE 04/16/17 01:50 Antibody Screen Negative 04/15/17 22:05 Crossmatch See Detail 04/15/17 22:05 BBK History Checked No verified bt 04/15/17 22:05 Attending/Attestation - Attestation I have personally seen and examined this patient.: Yes I have fully participated in the care of the patient.: Yes I have reviewed all pertinent clinical information, including history, physical exam and plan: Yes Notes (Text): 04/18/17 17:01 Attending note; Patient seen and examined with resident. Patient is a 50 year old female with significant PMH of alcohol abuse is admitted with binge drinking , nausea vomiting and upper GI bleed. Got 2 units of PRBC transfusion. Status post endoscopy today. EGD showed bleeding esophageal ulcer which was cauterized. Biopsy taken. Patient needs repeat EGD in 2 months. advised to follow-up with . alcohol withdrawal; improved significantly. Started on Librium. Chronic alcohol abuse; alcohol cessation is strongly advised. Depression; psychiatric evaluation appreciated. patient is tolerating regular diet. patient will be given prescription for Protonix and Carafate. Upon discharge the patient will follow-up with PMD Dr. Romero. diagnosis; Alcohol abuse Esophageal ulcer/GI bleed Status post blood transfusion Anxiety
--- NOTE | 2017-04-18 14:48 | CP.PCM.PN ---
<Divya Denson - Last Filed: 04/18/17 14:45> Subjective - Date & Time of Evaluation Date of Evaluation: 04/18/17 Time of Evaluation: 09:20 - Subjective Subjective: GI Fellow PGY4 Progress Note Pt seen and evaluated at bedside, pt doing well with no complaints. She is tolerating diet with no nausea or vomiting. No GI bleeding. VSS, Hgb stable. ROS: A 12pt ROS was negative except as above. Objective - Vital Signs/Intake and Output Vital Signs (last 24 hours): Temp Pulse Resp BP Pulse Ox 98.3 F 91 H 15 133/80 99 04/18/17 12:00 04/18/17 12:00 04/18/17 12:00 04/18/17 12:00 04/18/17 06:00 Intake and Output: 04/18/17 04/18/17 06:59 18:59 Intake Total 1440 Output Total 600 Balance 840 - Labs Labs: 04/18/17 07:00 04/18/17 07:00 PT 11.5 SECONDS (9.4-12.5) 04/16/17 06:55 INR 1.00 (0.93-1.08) 04/16/17 06:55 APTT 23.5 Seconds (25.1-36.5) L 04/15/17 14:30 - Constitutional Appears: Non-toxic, No Acute Distress - Head Exam Head Exam: ATRAUMATIC, NORMAL INSPECTION, NORMOCEPHALIC - Eye Exam Eye Exam: EOMI, Normal appearance, PERRL Pupil Exam: PERRL - ENT Exam ENT Exam: Mucous Membranes Moist - Neck Exam Neck Exam: Normal Inspection - Respiratory Exam Respiratory Exam: Clear to Ausculation Bilateral, NORMAL BREATHING PATTERN - Cardiovascular Exam Cardiovascular Exam: Tachycardia - GI/Abdominal Exam GI & Abdominal Exam: Soft, Normal Bowel Sounds. absent: Guarding, Tenderness - Neurological Exam Neurological Exam: Alert, Awake, Oriented x3 - Psychiatric Exam Psychiatric exam: Normal Affect, Normal Mood - Skin Skin Exam: Dry, Intact, Normal Color, Warm Assessment and Plan - Assessment and Plan (Free Text) Assessment: Celeste Pickard is a 51F w/ a hx of ETOH abuse who presents to the ER with complaints of coffee-grounds and melena 1. Anemia 2/2 GI bleed 2. Esophageal Ulcer w/ visible vessel, s/p cautery and injection 3. Melena 4. Alcohol abuse Plan: -Continue supportive care -continue PPI po bid -keep hgb > 7 -hgb stable with no further bleeding -advance to regular diet -advised alcohol cessation -alcohol withdrawl protocol -avoid NSAIDs -Pt okay for discharge home on ppi bid and outpt followup with GI <Angelique LAMB,Elijah - Last Filed: 04/18/17 18:01> Objective - Vital Signs/Intake and Output Vital Signs (last 24 hours): Temp Pulse Resp BP Pulse Ox 98.3 F 91 H 15 133/80 99 04/18/17 12:00 04/18/17 12:00 04/18/17 12:00 04/18/17 12:00 04/18/17 06:00 Intake and Output: 04/18/17 04/18/17 06:59 18:59 Intake Total 1440 Output Total 600 Balance 840 - Labs Labs: 04/18/17 07:00 04/18/17 07:00 PT 11.5 SECONDS (9.4-12.5) 04/16/17 06:55 INR 1.00 (0.93-1.08) 04/16/17 06:55 APTT 23.5 Seconds (25.1-36.5) L 04/15/17 14:30 Attending/Attestation - Attestation I have personally seen and examined this patient.: Yes I have fully participated in the care of the patient.: Yes I have reviewed all pertinent clinical information, including history, physical exam and plan: Yes Notes (Text): 04/18/17 17:59 Patient seen with GI fellow on rounds. This is a 51 yr old F with history of ETOH abuse who presents to the ER with complaints of coffee-grounds and melena s /p EGD that showed Esophageal Ulcer with visible vessel, s/p cautery and injection. H/Hct stable. Tolerating regular diet. Continue PPi bid. Alcohol cessation. Needs repeat EGD with Dr Cook in 3 months. Avoid NSAID's
[2017-04-18] MEDS ORDERED: Pantoprazole 40 mg EC Tab PO SCH (16:00)
--- NOTE | 2017-04-19 00:03 | CON ---
DATE: HISTORY OF PRESENT ILLNESS: Patient is a 51-year-old female with history of mood disorder NOS as well as with severe alcohol dependence. Psychiatry is following her on the medical floor for symptoms related to aforementioned diagnosis. She was seen by LETY Aldridge 2 days ago and this provider is following up with her today. When she was seen by psychiatric nurse 2 days ago, she indicated that she would be interested in transfer to the psychiatric unit once medically cleared due to her depression. It was also noted that she was not an imminent danger for hurting herself or others at this time. I met with her at bedside today and she continues to deny having any wishes or thoughts to harm herself or others. She is coherent and well oriented to month and year and current circumstances and location. She indicates that she is depressed and however she feels functional and hopeful. She is anxious about being discharged so she can help her father. Apparently, patient lives with her elderly father and her girlfriend. Patient denies having any hallucination. Her thought process is coherent and logical as well as her responses are consistent. As for her psychiatric hospitalization, she no longer wants to be psychiatrically hospitalized because of the reason that I mentioned previously, patient reports that she wants to go home and help with her father. Patient reports that she knows she has to change and she is going to follow up with outpatient referral for both substance abuse as well mental health. Although she is anxious for medical discharge, she is willing to cooperate with treatment team and follow up with treatment recommendations while she is on the medical floor in order to optimize her health status prior to discharge. She does not appear to be intensely dedicated to the idea of alcohol abstinence at this time, but she is in the contemplative stage of following up on intervention. Her insight is fair, judgement is poor in this respect. VITAL SIGNS: Reviewed, they are 98.1, 95, 139/94, and 18 at 6 a.m. this morning. LABORATORY DATA: Labs are also reviewed and patient's hemoglobin and hematocrit are improving little bit on the unit. This morning they were 7.7 and 23.3 respectively. AST is also improving from 102 to 73 today. MEDICATIONS: Relevant psychiatric medications include Ativan 2 mg IV q. 4 p.r.n. Patient received 2 doses this morning and a total of 2 doses yesterday, 4 doses on 04/16/2017. IMPRESSION: Mood disorder. I agree with Marjorie Aldridge. Patient does have severe alcohol use disorder and at this time I cannot characterize her mood, though it is likely related to substance-induced mood disorder. I will continue diagnosis of mood disorder, not otherwise specified. RECOMMENDATIONS: As noted above, patient is no longer interested in voluntary transfer to the psychiatric unit. She is not an acute danger to herself or others and she is organized, though does show poor judgement regarding her continued drinking. Patient should be given referral for outpatient mental health services as well as addiction services before she is discharged. I will sign off at this time, but will consult if there are any acute changes in patient's presentation. Jemal Harris MD
[2017-04-19] MEDS ORDERED: Multivitamin Therapeutic Tab PO SCH (08:00)
--- NOTE | 2017-04-20 08:21 | PN ---
DATE: 04/17/2017 She is being seen today for a followup consultation. PRESENTATION: Patient is a 51-year-old female who was admitted to [facility] on 04/15/2017. She was actually last in the hospital 2 to 3 weeks prior, had discharged herself AMA. She is in the hospital for multiple bouts of emesis. She had dark bloody vomitus. She is complaining of upper abdominal pain, heart burn, back pain. She indicated that her last drink was 2 days prior to admission, but she is known to be a binge drinker and she drinks as much as 3 L of alcohol in one day. She does have a history of going into withdrawal. Consult was called due to concerns about patient's depression and binge drinking. I had seen this patient in consult on 04/08/2017. Patient was admitted for essentially the same issues; however, this time, things were a little more serious in terms of the fact that she has a gastric bleed, in fact have blood infusion and has had surgery for the bleeding. One thing patient indicates that she remembers me and that she never followed upon any of the referral that I had given her and that she just needs to go home and take care of her father, her girlfriend is helping with the father now, but she needs to get home. I encouraged her to prioritize her care because clearly she is having severe secondary effects of her alcohol use and she needs to treat the underlying depression. Patient is very resistant to the idea that she might actually be an alcoholic; however, she is in agreement that she is depressed underneath and needs treatment for this. She is willing to consider coming up to the Psychiatric Unit once medically cleared to see if we can stabilize her depression before she goes home into the same environment. She indicates that being a caregiver for her father, it is very stressful for her. She binge drinks heavily, but she does not seem to be able to follow through on efforts to help herself. I pointed out to her that if her depression was treated that she would be more resilient and be able to follow through and actually work on not drinking that the depression probably is contributing to her need to drink by being untreated. Patient does indicate willingness to treat this, is not planning to sign out of the hospital. She does appear to understand the seriousness of her current medical condition. She is vacillating back and forth about whether or not she wants to come on to the Psychiatric Unit, she is thinking about it. CURRENT VITAL SIGNS: Include temperature of 98.3, pulse rate of 103, blood pressure of 137/82 and respiratory rate of 20. LABORATORY DATA: Her hemoglobin is 6.6, which is low and her hematocrit is 20.2, which continues low as well. Patient's blood culture was negative. MENTAL STATUS EXAMINATION: Patient is alert and oriented x3. Her eye contact is good. Her behavior is pleasant and cooperative. Her speech rate and volume are within normal limits. Mood is blunted. Affect is constricted. Thoughts are goal-directed, but she is in severe denial regarding the seriousness or the fact that there is any alcoholism. The patient denies the presence of hallucinations, delusions or paranoia. Denies being suicidal or homicidal. Her focus and concentration are poor. Her memory both short and long-term are adequate. Her appetite and her sleep are off. DIAGNOSTIC IMPRESSION: Depressive disorder, unspecified; alcohol dependence, chronic, ongoing, severe. PLAN: Patient denies being suicidal or homicidal, appears in no imminent danger of hurting herself or others. She is planning to stay in the hospital and complete her course of treatment. She is struggling with the reality that she does not seem to be able to be not drink; however she is resistant to alcohol treatment. It does appear that this patient has an underlying mood disorder that needs to be treated. She is thinking in terms of possibly coming to the Psychiatric Unit once stabilized medically and medically cleared. This case will be endorsed to followup on the weekend. Case has been discussed with Dr. Marti. Thank you for the consult. Marjorie Aldridge APN
== END 2017-04-18 14:20 | disposition home or self-care (01) | DRG 176 ==
LOC: ED 13:41 → ERH 16:43 → 3RSO 18:24
PROVIDERS: ADMIT Internal Medicine; ATTEND Internal Medicine
PROC: 05HM33Z Insertion of Infusion Device into Right Internal Jugular Vein, Percutaneous Approach (ICD-10-PCS; 2017-04-15)
PROC: B543ZZA Ultrasonography of Right Jugular Veins, Guidance (ICD-10-PCS; 2017-04-15)
PROC: 30233N1 Transfusion of Nonautologous Red Blood Cells into Peripheral Vein, Percutaneous Approach (ICD-10-PCS; 2017-04-16)
PROC: 3E0G8GC Introduction of Other Therapeutic Substance into Upper GI, Via Natural or Artificial Opening Endoscopic (ICD-10-PCS; 2017-04-16)
PROC: 0DB68ZX Excision of Stomach, Via Natural or Artificial Opening Endoscopic, Diagnostic (ICD-10-PCS; principal; 2017-04-16 12:45)
PROC: 0W3P8ZZ Control Bleeding in Gastrointestinal Tract, Via Natural or Artificial Opening Endoscopic (ICD-10-PCS; 2017-04-16 12:45)
DX: K22.11 Ulcer of esophagus with bleeding (principal); D50.0 Iron deficiency anemia secondary to blood loss (chronic); F10.239 Alcohol dependence with withdrawal, unspecified; F17.210 Nicotine dependence, cigarettes, uncomplicated; F12.90 Cannabis use, unspecified, uncomplicated; F19.94 Other psychoactive substance use, unspecified with psychoactive substance-induced mood disorder; F32.89 Other specified depressive episodes; F41.9 Anxiety disorder, unspecified; G89.29 Other chronic pain; I10 Essential (primary) hypertension; K29.70 Gastritis, unspecified, without bleeding; K44.9 Diaphragmatic hernia without obstruction or gangrene; K29.80 Duodenitis without bleeding; Z80.0 Family history of malignant neoplasm of digestive organs; Z80.9 Family history of malignant neoplasm, unspecified; K21.9 Gastro-esophageal reflux disease without esophagitis; Z87.11 Personal history of peptic ulcer disease; R40.2412 Glasgow coma scale score 13-15, at arrival to emergency department; Z86.69 Personal history of other diseases of the nervous system and sense organs; K29.50 Unspecified chronic gastritis without bleeding

== ENCOUNTER 2018-08-04 23:04 | Inpatient (IN) | payer OTHER ==
[2018-08-04 23:04] VITALS: BMI 26.3
--- NOTE | 2018-08-04 23:24 | ED PDOC ---
Arrival/HPI - General Chief Complaint: Psychiatric Evaluation Time Seen by Provider: 08/04/18 23:07 Historian: Patient - History of Present Illness Narrative History of Present Illness (Text): 08/04/18 23:21 Celeste Pickard is a 52 year old female smoker, whose past medical history includes hypertension, alcohol abuse, substance abuse, COPD, who presents to the ED brought in by EMS complaining of "not feeling well." Paitent had been complaining of intermittent chest discomfort, described as tightness. Patient states her last alcoholic drink was yesterday. Patient states she feels jittery/anxious with some occasional shortness of breath, denies any shortness of breath currently. Patient denies any history of leg pain, fever, chills, cough, or any other complaints. Symptom Onset: Gradual Symptom Course: Unchanged Activities at Onset: Light Context: Home Past Medical History - Provider Review Nursing Documentation Reviewed: Yes - Infectious Disease Hx of Infectious Diseases: None - Cardiac Hx Hypertension: No - Pulmonary Hx Bronchitis: Yes Hx Chronic Obstructive Pulmonary Disease (COPD): Yes - Neurological Hx Migraine: Yes Hx Seizures: No - HEENT Hx HEENT Disorder: No - Renal Hx Renal Disorder: No - Endocrine/Metabolic Hx Endocrine Disorders: No - Hematological/Oncological Hx Cancer: No - Integumentary Hx Dermatological Disorder: No - Musculoskeletal/Rheumatological Hx Musculoskeletal Disorders: No - Gastrointestinal Hx Gastrointestinal Ulcer: Yes - Genitourinary/Gynecological Hx Sexually Transmitted Diseases: No - Psychiatric Hx Anxiety: Yes Hx Depression: Yes Hx Substance Use: No - Surgical History Other/Comment: Rt foot surger - Anesthesia Hx Anesthesia: Yes Hx Anesthesia Reactions: No Hx Malignant Hyperthermia: No - Suicidal Assessment Feels Threatened In Home Enviroment: No Family/Social History - Physician Review Nursing Documentation Reviewed: Yes Family/Social History: Unknown Family HX Smoking Status: Light Smoker < 10 Cigarettes Daily Hx Alcohol Use: Yes Hx Substance Use: No Substance used: MARAJUANA Allergies/Home Meds Allergies/Adverse Reactions: Allergies No Known Allergies Allergy (Verified 08/04/18 23:30) Home Medications: Home Meds Medication Instructions Recorded Confirmed Unobtainable 08/04/18 08/04/18 Review of Systems - Physician Review All systems were reviewed & negative as marked: Yes - Review of Systems Constitutional: Normal. absent: Fevers Eyes: Normal ENT: Normal Respiratory: SOB Cardiovascular: Chest Pain Gastrointestinal: Normal. absent: Abdominal Pain, Diarrhea, Nausea, Vomiting Genitourinary Female: Normal. absent: Dysuria, Frequency, Hematuria, Urine Output Changes Musculoskeletal: Normal. absent: Back Pain, Neck Pain Skin: Normal. absent: Rash Neurological: Normal. absent: Headache, Dizziness Endocrine: Normal Hemo/Lymphatic: Normal Psychiatric: Anxiety Physical Exam Vital Signs Reviewed: Yes Temperature: Afebrile Blood Pressure: Normal Pulse: Tachycardic Respiratory Rate: Normal Appearance: Positive for: Well-Appearing, Non-Toxic, Comfortable Pain Distress: None Mental Status: Positive for: Alert and Oriented X 3 - Systems Exam Head: Present: Atraumatic, Normocephalic Pupils: Present: PERRL Extroacular Muscles: Present: EOMI Conjunctiva: Present: Normal Mouth: Present: Moist Mucous Membranes Neck: Present: Normal Range of Motion Respiratory/Chest: Present: Clear to Auscultation, Good Air Exchange. No: Respiratory Distress, Accessory Muscle Use Cardiovascular: Present: Normal S1, S2, Tachycardic. No: Murmurs Abdomen: No: Tenderness, Distention, Peritoneal Signs Back: Present: Normal Inspection Upper Extremity: Present: Normal Inspection. No: Cyanosis, Edema Lower Extremity: Present: Normal Inspection. No: Edema Neurological: Present: GCS=15, CN II-XII Intact, Speech Normal Skin: Present: Warm, Dry, Normal Color. No: Rashes Psychiatric: Present: Alert, Oriented x 3, Anxious Medical Decision Making ED Course and Treatment: 08/04/18 23:21 Impression: 52 year old female complaining of chest pain, cough, anxiety. Plan: -- EKG -- Chest X-ray -- Labs, cardiac enzymes, D-dimer -- Reassess and disposition Prior Visits: Notes and results from previous visits were reviewed. Progress Notes: Reviewed EKG, sinus tachycardia at [address]pm[address] Non-specific ST/T wave changes. 08/05/18 02:51 Chest X-ray reviewed, shows no acute processes. 08/05/18 03:[address] Samaniego, who is aware and agrees with plan. Accepts in to hospitalist service. Pt admitted to Telemetry for alcohol withdrawal and chest pain. residential sales executive notified. - EKG Interpretation Interpreted by ED Physician: Yes Type: 12 lead EKG - Scribe Statement The provider has reviewed the documentation as recorded by the Vinnie Boyd Provider Scribe Attestation: All medical record entries made by the Feliibstephan were at my direction and personally dictated by me. I have reviewed the chart and agree that the record accurately reflects my personal performance of the history, physical exam, medical decision making, and the department course for this patient. I have also personally directed, reviewed, and agree with the discharge instructions and disposition. Disposition/Present on Arrival - Present on Arrival Any Indicators Present on Arrival: No History of DVT/PE: No History of Uncontrolled Diabetes: No Urinary Catheter: No History of Decub. Ulcer: No History Surgical Site Infection Following: None - Disposition Have Diagnosis and Disposition been Completed?: Yes Diagnosis: Hypokalemia, Alcohol withdrawal, Chest pain Disposition: HOSPITALIZED Disposition Time: 03:27 Patient Plan: Admission Patient Problems: Current Active Problems Problem Status Onset Alcohol withdrawal Acute Chest pain Acute Hypokalemia Acute Condition: STABLE
[2018-08-05 00:52] LABS: MEAN CELL VOLUME 89.4 fl (80.0-105.0); MEAN CORPUSCULAR HEMOGLOBIN 29.6 pg (25.0-35.0); MEAN CORPUSCULAR HGB CONC 33.1 g/dl (31.0-37.0); RBC 4.9 10^6/uL (3.5-6.1); RED CELL DISTRIBUTION WIDTH 14.5 % (11.5-14.5); WHITE BLOOD COUNT 14.8 10^3/uL (4.5-11.0)
[2018-08-05 00:57] LABS: INR 0.88; PARTIAL THROMBOPLASTIN TIME 25.4 Seconds (26.9-38.3)
[2018-08-05 01:08] LABS: HEMOGLOBIN 14.5 g/dL (12.0-16.0)
[2018-08-05 01:11] LABS: PROTHROMBIN TIME 9.8 SECONDS (9.4-12.5)
[2018-08-05 01:12] LABS: TROPONIN I 0.04 ng/mL
[2018-08-05 01:22] LABS: ALB/GLOB RATIO 1.2 (1.1-1.8); ALBUMIN 5.2 g/dL (3.0-4.8); CALCIUM 11.2 mg/dL (8.4-10.5)
[2018-08-05] MEDS ORDERED: Potassium Chloride 20 mEq 100 ML IV ONE (01:27)
[2018-08-05] MEDS ORDERED: Potassium Chloride 20 mEq ER Tab PO STA ×3 (01:28→08:32)
[2018-08-05] MEDS ORDERED: Folic Acid 1 MG, Thiamine 100 MG, Multivitamin (MVI) 10 ML in Dextrose 5% In Water 1,00... IV SCH (03:45)
--- NOTE | 2018-08-05 03:56 | CP.PCM.HP ---
<Hollis Troncoso - Last Filed: 08/05/18 05:59> History of Present Illness - History of Present Illness History of Present Illness: Hollis Troncoso, PGY1 H&P for Dr. Aden hook: "Anxiety, hallucinations, chest discomfort, after binge drinking 2 days ago" Patient is a 52 year old female whose past medical history includes hypertension, alcohol abuse, substance abuse, COPD, Gastritis (EGD on 04/2017 showing gastritis) who presents to the ED for symptoms of anxiety, hallucinations, chest discomfort after binge drinking two days ago. Patient says she will often binge drink a gallon of liquor. She also has symptoms of anxiety with some occasional shortness of breath. She says she sees sparkles. She denies OCP use, recent immobility, recent surgery. She does endorse nausea and vomiting after binge drinking. Patient denies fever, chills, headache, bowel/bladder changes. Patient has a previous admission on 04/18/17 for alcohol abuse/withdrawal in which she was found to have a bleeding esophageal ulcer on EGD with biopsy showing Gastritis. A full 12 point ROS was conducted and unremarkable except as stated above. PMD: none Pharm: Harry'anshu PMH: hypertension, alcohol abuse, substance abuse, COPD, Gastritis (EGD on 04/2017 showing gastritis) PSH: Denies Home medications: none Allergies: NKDA Fam Hx: Pancreatic Cancer (Father-Alive), Cancer (Paternal Uncle-), Cancer (Paternal Aunt- Alive) Social Hx: Binge drinks once a while - gallon of liquor; Marijuana use, Smokes pack a day for about 30 years. Present on Admission - Present on Admission Any Indicators Present on Admission: No Review of Systems - Review of Systems All systems: reviewed and no additional remarkable complaints except (as per HPI) Past Patient History - Infectious Disease Hx of Infectious Diseases: None - Past Medical History & Family History Past Medical History?: Yes - Past Social History Smoking Status: Light Smoker < 10 Cigarettes Daily - CARDIAC Hx Hypertension: No - PULMONARY Hx Bronchitis: Yes Hx Chronic Obstructive Pulmonary Disease (COPD): Yes - NEUROLOGICAL Hx Migraine: Yes Hx Seizures: No - HEENT Hx HEENT Problems: No - RENAL Hx Chronic Kidney Disease: No - ENDOCRINE/METABOLIC Hx Endocrine Disorders: No - HEMATOLOGICAL/ONCOLOGICAL Hx Cancer: No - INTEGUMENTARY Hx Dermatological Problems: No - MUSCULOSKELETAL/RHEUMATOLOGICAL Hx Musculoskeletal Disorders: No - GASTROINTESTINAL Hx Gastrointestinal Disorders: No - GENITOURINARY/GYNECOLOGICAL Hx Sexually Transmitted Disorders: No - PSYCHIATRIC Hx Anxiety: Yes Hx Depression: Yes Hx Substance Use: No - SURGICAL HISTORY Other/Comment: Rt foot surger - ANESTHESIA Hx Anesthesia: Yes Hx Anesthesia Reactions: No Hx Malignant Hyperthermia: No Meds Allergies/Adverse Reactions: Allergies Allergy/AdvReac Type Severity Reaction Status Date / Time No Known Allergies Allergy Verified 08/04/18 23:30 Physical Exam - Constitutional Appears: No Acute Distress - Head Exam Head Exam: ATRAUMATIC, NORMAL INSPECTION, NORMOCEPHALIC - Eye Exam Eye Exam: EOMI, Normal appearance - ENT Exam ENT Exam: Mucous Membranes Moist - Respiratory Exam Respiratory Exam: Clear to Auscultation Bilateral. absent: Chest Wall Tenderness, Rales, Rhonchi, Wheezes - Cardiovascular Exam Cardiovascular Exam: Tachycardia, +S1, +S2. absent: Systolic Murmur - GI/Abdominal Exam GI & Abdominal Exam: Normal Bowel Sounds, Soft. absent: Distended, Firm, Guarding, Rebound, Rigid, Tenderness - Extremities Exam Extremities exam: Positive for: normal capillary refill, normal inspection, pedal pulses present. Negative for: calf tenderness, tenderness - Back Exam Back exam: NORMAL INSPECTION - Neurological Exam Neurological exam: Alert, CN II-XII Intact, Oriented x3 - Psychiatric Exam Psychiatric exam: Flat Affect - Skin Skin Exam: Dry, Intact, Normal Color, Warm Results - Vital Signs Recent Vital Signs: Last Vital Signs Temp 98.4 F 08/04/18 23:25 Pulse 117 H 08/05/18 03:03 Resp 15 08/05/18 03:03 BP 128/84 08/05/18 03:03 Pulse Ox 100 08/05/18 03:03 - Labs Result Diagrams: 08/05/18 00:25 08/05/18 00:25 Labs: Laboratory Results - last 24 hr 08/05/18 08/05/18 08/05/18 00:25 00:25 00:25 WBC 14.8 H RBC 4.90 Hgb 14.5 D Hct 43.8 MCV 89.4 MCH 29.6 MCHC 33.1 RDW 14.5 Plt Count 307 MPV 10.0 PT 9.8 INR 0.88 APTT 25.4 L D-Dimer, Quantitative 379 H Sodium 138 Potassium 2.7 L* D Chloride 64 L D Carbon Dioxide 45 H D Anion Gap 32 H BUN 33 H Creatinine 1.4 H Est GFR ( Amer) 48 Est GFR (Non-Af Amer) 40 Random Glucose 162 H Calcium 11.2 H Total Bilirubin 0.6 AST 52 H D ALT 32 Alkaline Phosphatase 153 H D Lactate Dehydrogenase 527 Total Creatine Kinase 105 Troponin I 0.04 D Total Protein 9.6 H Albumin 5.2 H Globulin 4.4 Albumin/Globulin Ratio 1.2 Alcohol, Quantitative 08/05/18 00:25 WBC RBC Hgb Hct MCV MCH MCHC RDW Plt Count MPV PT INR APTT D-Dimer, Quantitative Sodium Potassium Chloride Carbon Dioxide Anion Gap BUN Creatinine Est GFR ( Amer) Est GFR (Non-Af Amer) Random Glucose Calcium Total Bilirubin AST ALT Alkaline Phosphatase Lactate Dehydrogenase Total Creatine Kinase Troponin I Total Protein Albumin Globulin Albumin/Globulin Ratio Alcohol, Quantitative 13 H Assessment & Plan - Assessment and Plan (Free Text) Assessment: Patient is a 52 year old female whose past medical history includes hypertension, alcohol abuse, substance abuse, COPD, Gastritis (EGD on 04/2017 showing gastritis) who presents to the ED for symptoms of anxiety, hallucinations, chest discomfort after binge drinking two days ago. Plan: Alcoholic Ketoacidosis in the setting of EtOH Intoxication/Withdrawal - EtOH level 13 - HAGMA, anion gap 29 - UDS and UA ordered - [facility] protocol - Banana bag x1 - Ativan 1mg IVP q6 scheduled - Ativan 2mg IVP q2 prn - Benadryl 25mg IVP q6 prn for nausea/vomiting - Avoid QTc prolonging agents such as zofran - Multivitamin/folic acid/thiamine PO after banana bag - seizure/fall/aspiration precautions Hypokalemia 2/2 Vomiting - K 2.7 in the ED; replete as needed - obtain Mg and Phos levels as well; replete lytes as needed - Chest discomfort likely 2/2 vomiting episodes; atypical. Will obtain echo to r/o any dilated cardiomyopathy given history. CORINA - BUN/Cr 33/1.4 (baseline Cr 0.7) - IVF Sinus Tachycardia - r/o PE - D-dimer 379 - Initial trop 0.04; repeat another trop - V/Q scan to r/o PE given she has CORINA - EKG: sinus tachycardia, HR 120. QTc 520 - Will administer lovenox 60units SC one time Gastritis - PTX 40mg PO daily HTN - not on antihypertensives at this time ppx: -scd -ptx Diet: HHD Dispo: Will monitor patient on tele. Case was discussed and reviewed with Attending Physician, Dr. Samaniego <Nora Samaniego - Last Filed: 08/05/18 19:32> Results - Vital Signs Recent Vital Signs: Last Vital Signs Temp 98.9 F 08/05/18 16:57 Pulse 110 H 08/05/18 17:55 Resp 20 08/05/18 16:57 BP 118/84 08/05/18 16:57 Pulse Ox 96 08/05/18 05:47 - Labs Result Diagrams: 08/05/18 07:00 08/05/18 17:50 Labs: Laboratory Results - last 24 hr 08/05/18 08/05/18 08/05/18 00:25 00:25 00:25 WBC 14.8 H RBC 4.90 Hgb 14.5 D Hct 43.8 MCV 89.4 MCH 29.6 MCHC 33.1 RDW 14.5 Plt Count 307 MPV 10.0 PT 9.8 INR 0.88 APTT 25.4 L D-Dimer, Quantitative 379 H pCO2 pO2 HCO3 ABG pH ABG Total CO2 ABG O2 Saturation ABG O2 Content ABG Base Excess ABG Hemoglobin ABG Carboxyhemoglobin POC ABG HHb (Measured) ABG Methemoglobin ABG O2 Capacity Hgb O2 Saturation FiO2 Crit Value Called To Crit Value Called By Blood Gas Notified Time Sodium 138 Potassium 2.7 L* D Chloride 64 L D Carbon Dioxide 45 H D Anion Gap 32 H BUN 33 H Creatinine 1.4 H Est GFR ( Amer) 48 Est GFR (Non-Af Amer) 40 POC Glucose (mg/dL) Random Glucose 162 H Calcium 11.2 H Phosphorus Magnesium Total Bilirubin 0.6 AST 52 H D ALT 32 Alkaline Phosphatase 153 H D Lactate Dehydrogenase 527 Total Creatine Kinase 105 Troponin I 0.04 D Total Protein 9.6 H Albumin 5.2 H Globulin 4.4 Albumin/Globulin Ratio 1.2 Urine Color Urine Appearance Urine pH Ur Specific [place] Urine Protein Urine Glucose (UA) Urine Ketones Urine Blood Urine Nitrate Urine Bilirubin Urine Urobilinogen Ur Leukocyte Esterase Urine RBC Urine WBC Ur Epithelial Cells Triple Phos Crystals Amorphous Sediment Urine Bacteria Hyaline Casts Fine Granular Casts Coarse Granular Casts Urine Other Urine Opiates Screen Urine Methadone Screen Ur Barbiturates Screen Ur Phencyclidine Scrn Ur Amphetamines Screen U Benzodiazepines Scrn U Oth Cocaine Metabols U Cannabinoids Screen Alcohol, Quantitative 08/05/18 08/05/18 08/05/18 00:25 03:11 07:00 WBC RBC Hgb Hct MCV MCH MCHC RDW Plt Count MPV PT INR APTT D-Dimer, Quantitative pCO2 pO2 HCO3 ABG pH ABG Total CO2 ABG O2 Saturation ABG O2 Content ABG Base Excess ABG Hemoglobin ABG Carboxyhemoglobin POC ABG HHb (Measured) ABG Methemoglobin ABG O2 Capacity Hgb O2 Saturation FiO2 Crit Value Called To Crit Value Called By Blood Gas Notified Time Sodium 134 Potassium 3.1 L Chloride 63 L Carbon Dioxide 48 H Anion Gap 26 H BUN 34 H Creatinine 1.1 Est GFR ( Amer) > 60 Est GFR (Non-Af Amer) 52 POC Glucose (mg/dL) Random Glucose 152 H Calcium 10.2 Phosphorus 6.0 H Magnesium 2.4 H Total Bilirubin 0.8 AST 54 H ALT 32 Alkaline Phosphatase 133 H Lactate Dehydrogenase Total Creatine Kinase Troponin I Total Protein 9.0 H Albumin 4.7 Globulin 4.3 Albumin/Globulin Ratio 1.1 Urine Color Urine Appearance Urine pH Ur Specific [place] Urine Protein Urine Glucose (UA) Urine Ketones Urine Blood Urine Nitrate Urine Bilirubin Urine Urobilinogen Ur Leukocyte Esterase Urine RBC Urine WBC Ur Epithelial Cells Triple Phos Crystals Amorphous Sediment Urine Bacteria Hyaline Casts Fine Granular Casts Coarse Granular Casts Urine Other Urine Opiates Screen Negative Urine Methadone Screen Negative Ur Barbiturates Screen Negative Ur Phencyclidine Scrn Negative Ur Amphetamines Screen Negative U Benzodiazepines Scrn Negative U Oth Cocaine Metabols Negative U Cannabinoids Screen Positive H Alcohol, Quantitative 13 H 08/05/18 08/05/18 08/05/18 07:00 07:00 07:01 WBC 15.0 H RBC 4.75 Hgb 13.7 Hct 42.7 MCV 89.9 MCH 28.8 MCHC 32.1 RDW 14.6 H Plt Count 281 MPV 9.9 PT INR APTT D-Dimer, Quantitative pCO2 pO2 HCO3 ABG pH ABG Total CO2 ABG O2 Saturation ABG O2 Content ABG Base Excess ABG Hemoglobin ABG Carboxyhemoglobin POC ABG HHb (Measured) ABG Methemoglobin ABG O2 Capacity Hgb O2 Saturation FiO2 Crit Value Called To Crit Value Called By Blood Gas Notified Time Sodium Potassium Chloride Carbon Dioxide Anion Gap BUN Creatinine Est GFR ( Amer) Est GFR (Non-Af Amer) POC Glucose (mg/dL) 154 H Random Glucose Calcium Phosphorus Magnesium Total Bilirubin AST ALT Alkaline Phosphatase Lactate Dehydrogenase Total Creatine Kinase Troponin I 0.06 D Total Protein Albumin Globulin Albumin/Globulin Ratio Urine Color Urine Appearance Urine pH Ur Specific [place] Urine Protein Urine Glucose (UA) Urine Ketones Urine Blood Urine Nitrate Urine Bilirubin Urine Urobilinogen Ur Leukocyte Esterase Urine RBC Urine WBC Ur Epithelial Cells Triple Phos Crystals Amorphous Sediment Urine Bacteria Hyaline Casts Fine Granular Casts Coarse Granular Casts Urine Other Urine Opiates Screen Urine Methadone Screen Ur Barbiturates Screen Ur Phencyclidine Scrn Ur Amphetamines Screen U Benzodiazepines Scrn U Oth Cocaine Metabols U Cannabinoids Screen Alcohol, Quantitative 08/05/18 08/05/18 08/05/18 11:03 11:30 12:29 WBC RBC Hgb Hct MCV MCH MCHC RDW Plt Count MPV PT INR APTT D-Dimer, Quantitative pCO2 54 H pO2 57.0 L HCO3 59.5 H* ABG pH 7.65 H* ABG Total CO2 61.2 H ABG O2 Saturation 93.6 L ABG O2 Content 16.7 ABG Base Excess 33.6 H ABG Hemoglobin 13.7 ABG Carboxyhemoglobin 5.7 H POC ABG HHb (Measured) 5.9 H ABG Methemoglobin 1.5 ABG O2 Capacity 17.8 Hgb O2 Saturation 86.9 L FiO2 21.0 Crit Value Called To Tessy ashby Crit Value Called By [facility] Blood Gas Notified Time 1106 Sodium Potassium Chloride Carbon Dioxide Anion Gap BUN Creatinine Est GFR ( Amer) Est GFR (Non-Af Amer) POC Glucose (mg/dL) 135 H Random Glucose Calcium Phosphorus Magnesium Total Bilirubin AST ALT Alkaline Phosphatase Lactate Dehydrogenase Total Creatine Kinase Troponin I Total Protein Albumin Globulin Albumin/Globulin Ratio Urine Color Yellow Urine Appearance Clear Urine pH 8.5 Ur Specific [place] 1.010 Urine Protein 100 H Urine Glucose (UA) Negative Urine Ketones 15 H Urine Blood Trace-lysed H Urine Nitrate Negative Urine Bilirubin Small H Urine Urobilinogen 0.2 Ur Leukocyte Esterase Negative Urine RBC 1 - 3 H Urine WBC 0 - 2 Ur Epithelial Cells 4 - 5 Triple Phos Crystals Few Amorphous Sediment Small Urine Bacteria Many Hyaline Casts 0 - 2 Fine Granular Casts 0 - 2 Coarse Granular Casts Trace Urine Other Uyeast Urine Opiates Screen Urine Methadone Screen Ur Barbiturates Screen Ur Phencyclidine Scrn Ur Amphetamines Screen U Benzodiazepines Scrn U Oth Cocaine Metabols U Cannabinoids Screen Alcohol, Quantitative 08/05/18 08/05/18 12:59 17:50 WBC RBC Hgb Hct MCV MCH MCHC RDW Plt Count MPV PT INR APTT D-Dimer, Quantitative pCO2 pO2 HCO3 ABG pH ABG Total CO2 ABG O2 Saturation ABG O2 Content ABG Base Excess ABG Hemoglobin ABG Carboxyhemoglobin POC ABG HHb (Measured) ABG Methemoglobin ABG O2 Capacity Hgb O2 Saturation FiO2 Crit Value Called To Crit Value Called By Blood Gas Notified Time Sodium 131 L Potassium 3.4 L Chloride 71 L Carbon Dioxide 44 H Anion Gap 19 BUN 28 H Creatinine 1.0 Est GFR ( Amer) > 60 Est GFR (Non-Af Amer) 58 POC Glucose (mg/dL) Random Glucose 144 H Calcium 9.7 Phosphorus Magnesium Total Bilirubin AST ALT Alkaline Phosphatase Lactate Dehydrogenase Total Creatine Kinase Troponin I 0.05 Total Protein Albumin Globulin Albumin/Globulin Ratio Urine Color Urine Appearance Urine pH Ur Specific [place] Urine Protein Urine Glucose (UA) Urine Ketones Urine Blood Urine Nitrate Urine Bilirubin Urine Urobilinogen Ur Leukocyte Esterase Urine RBC Urine WBC Ur Epithelial Cells Triple Phos Crystals Amorphous Sediment Urine Bacteria Hyaline Casts Fine Granular Casts Coarse Granular Casts Urine Other Urine Opiates Screen Urine Methadone Screen Ur Barbiturates Screen Ur Phencyclidine Scrn Ur Amphetamines Screen U Benzodiazepines Scrn U Oth Cocaine Metabols U Cannabinoids Screen Alcohol, Quantitative Attending/Attestation - Attestation I have personally seen and examined this patient.: Yes I have fully participated in the care of the patient.: Yes I have reviewed all pertinent clinical information: Yes Notes (Text): 08/05/18 19:31 Seen and examined. discussed with resident. A&P as above.
[2018-08-05 04:16] LABS: BENZODIAZEPINES, UR NEGATIVE (NEGATIVE); PHENCYCLIDINE, UR NEGATIVE (NEGATIVE)
[2018-08-05 04:26] LABS: BARBITURATES, UR NEGATIVE (NEGATIVE); OPIATES, UR NEGATIVE (NEGATIVE)
[2018-08-05] MEDS ORDERED: Alum-Mag Hydrox-Simethicone Susp (30 mL) PO STA (05:03)
[2018-08-05] MEDS ORDERED: Enoxaparin 60 mg Syringe SC STA (05:48)
[2018-08-05] MEDS ORDERED: Magnesium Sulfate 1 gm in D5W 1 GM/100 ML BAG IVPB ONE (05:54)
[2018-08-05] MEDS ORDERED: DiphenhydrAMINE 50 mg/ml Inj IVP PRN (06:11)
[2018-08-05] MEDS: Pantoprazole 40 mg EC Tab PO SCH (06:59)
[2018-08-05 07:14] LABS: HEMOGLOBIN 13.7 g/dL (12.0-16.0); MEAN CELL VOLUME 89.9 fl (80.0-105.0); MEAN CORPUSCULAR HEMOGLOBIN 28.8 pg (25.0-35.0); MEAN CORPUSCULAR HGB CONC 32.1 g/dl (31.0-37.0); MEAN PLATELET VOLUME 9.9 fl (7.0-11.0); RBC 4.75 10^6/uL (3.5-6.1); RED CELL DISTRIBUTION WIDTH 14.6 % (11.5-14.5)
[2018-08-05 07:38] LABS: ALB/GLOB RATIO 1.1 (1.1-1.8); ALBUMIN 4.7 g/dL (3.0-4.8); ALT/SGPT 32 U/L (7-56); AST/SGOT 54 U/L (14-36); BLOOD UREA NITROGEN 34 mg/dL (7-21); CALCIUM 10.2 mg/dL (8.4-10.5); GFR NON-AFRICAN AMERICAN 52
[2018-08-05] MEDS ORDERED: Dextrose 50% SYRINGE Inj (50 ml) IV PRN (08:04)
--- NOTE | 2018-08-05 08:48 | RAD ---
Date of service: 08/04/2018 HISTORY: chest pain COMPARISON: No prior. TECHNIQUE: 1 view obtained. FINDINGS: LUNGS: No active pulmonary disease. PLEURA: No significant pleural effusion identified, no pneumothorax apparent. CARDIOVASCULAR: No aortic atherosclerotic calcification present. Normal cardiac size. No pulmonary vascular congestion. OSSEOUS STRUCTURES: No significant abnormalities. VISUALIZED UPPER ABDOMEN: Normal. OTHER FINDINGS: None. IMPRESSION: No active disease.
[2018-08-05 11:07] LABS: ARTERIAL BLOOD GAS HCO3 59.5 mmol/L (21-28); ARTERIAL BLOOD GAS HEMOGLOBIN 13.7 g/dL (11.7-17.4); ARTERIAL BLOOD GAS O2 CAPACITY 17.8 mL/dl (16-24); ARTERIAL BLOOD GAS O2 CONTENT 16.7 ML/dl (15-23); ARTERIAL BLOOD GAS O2 SAT 93.6 % (95-98); ARTERIAL BLOOD GAS PCO2 54 mm/Hg (35-45); ARTERIAL BLOOD GAS PH 7.65 (7.35-7.45); ARTERIAL BLOOD GAS TCO2 61.2 mmol.L (22-28)
--- NOTE | 2018-08-05 11:24 | CARD ---
APPROVED REPORT Date of service: 08/04/2018 EKG Measurement Heart [id number] ID [id number] <Conclusion> Sinus tachycardia Left atrial enlargement Abnormal ECG
--- NOTE | 2018-08-05 11:53 | CT ---
Date of service: 08/05/2018 PROCEDURE: CT HEAD WITHOUT CONTRAST. HISTORY: Altered mental status COMPARISON: No prior study available for comparison. TECHNIQUE: Axial computed tomography images were obtained through the head/brain without intravenous contrast. Radiation dose: Total exam DLP = 788.53 mGy-cm. This CT exam was performed using one or more of the following dose reduction techniques: Automated exposure control, adjustment of the mA and/or kV according to patient size, and/or use of iterative reconstruction technique. FINDINGS: HEMORRHAGE: No acute parenchymal, subarachnoid or extra-axial hemorrhage. BRAIN: Suspect minor chronic periventricular white matter ischemic changes. Questionable artifact versus a few tiny chronic appearing bilateral basal nuclei lacunar type infarcts may be present as well. Ventricular and sulcal size are within range of normal for this patient's stated age VENTRICLES: No obstructive hydrocephalus CALVARIUM: Calvarium intact. PARANASAL SINUSES: Unremarkable as visualized. No significant inflammatory changes. MASTOID AIR CELLS: Unremarkable as visualized. No inflammatory changes. OTHER FINDINGS: Enlarged adenoids. IMPRESSION: No acute intracranial hemorrhage. Suspect minimal chronic periventricular white matter ischemic changes. Questionable artifact versus a few tiny chronic bilateral basal nuclei lacunar type infarcts.
[2018-08-05 12:09] LABS: PH,URINE 8.5 (4.7-8.0); URINE BILIRUBIN SMALL (NEGATIVE); URINE BLOOD TRACE-LYSED (NEGATIVE); URINE GLUCOSE (UA) NEGATIVE (NEGATIVE); URINE LEUKOCYTE ESTERASE NEGATIVE Leu/uL (NEGATIVE); URINE PROTEIN 100 mg/dL (<30 mg/dL); URINE UROBILINOGEN 0.2 E.U./dL (<1 E.U./dL)
[2018-08-05 12:14] LABS: URINE APPEARANCE CLEAR (CLEAR); URINE COLOR YELLOW (YELLOW)
[2018-08-05] MEDS: Insulin Lispro (humaLOG) LOW Coverage SC SCH ×3 (12:30→21:21)
[2018-08-05 12:34] LABS: URINE WBC 0 - 2 /hpf (0-6)
[2018-08-05 12:35] LABS: URINE BACTERIA MANY /hpf; URINE TRIPLE PHOSPHATE CRYSTAL FEW /hpf
[2018-08-05 12:36] LABS: URINE AMORPHOUS SEDIMENT SMALL /hpf; URINE COARSE GRANULAR CAST TRACE /hpf; URINE FINE GRANULAR CAST 0 - 2 /hpf; URINE HYALINE CAST 0 - 2 /hpf
[2018-08-05] MEDS ORDERED: Sodium Chloride 0.9% 1,000 ML IV SCH (12:45)
--- NOTE | 2018-08-05 14:43 | NM ---
Date of service: 08/05/2018 COMPARISON: 08.04.18 chest x-ray TECHNIQUE: 30.0 mCi technetium 99-m DTPA aerosol. 2.4 mCI technetium 99-m MAA administered intravenously. FINDINGS: VENTILATION COMPONENT: Normal.Retention of radionuclide in the tracheobronchial tree and ingestion of radionuclide in the stomach, incidental findings PERFUSION COMPONENT: Normal. IMPRESSION: Negative ventilation perfusion scan for pulmonary embolism. Concordant findings (preliminary report) provided by [facility].
[2018-08-05] MEDS: Sodium Chloride 0.9% 1,000 ML IV SCH (17:44)
[2018-08-05] MEDS ORDERED: Alum-Mag Hydrox-Simethicone Susp (30 mL) PO PRN ×2 (17:56→18:06)
[2018-08-05 18:35] LABS: BLOOD UREA NITROGEN 28 mg/dL (7-21); CALCIUM 9.7 mg/dL (8.4-10.5); GFR NON-AFRICAN AMERICAN 58
[2018-08-06] MEDS: Sodium Chloride 0.9% 1,000 ML IV SCH (02:19)
[2018-08-06] MEDS: Pantoprazole 40 mg EC Tab PO SCH (06:20)
[2018-08-06 07:20] LABS: HEMOGLOBIN 14.5 g/dL (12.0-16.0); MEAN CORPUSCULAR HEMOGLOBIN 28.9 pg (25.0-35.0); MEAN CORPUSCULAR HGB CONC 31.5 g/dl (31.0-37.0); MEAN PLATELET VOLUME 9.9 fl (7.0-11.0); RBC 5.01 10^6/uL (3.5-6.1); RED CELL DISTRIBUTION WIDTH 14.8 % (11.5-14.5); WHITE BLOOD COUNT 9.2 10^3/uL (4.5-11.0)
[2018-08-06 07:39] LABS: ALB/GLOB RATIO 1.1 (1.1-1.8); ALT/SGPT 32 U/L (7-56); AST/SGOT 76 U/L (14-36); BLOOD UREA NITROGEN 19 mg/dL (7-21); CALCIUM 8.9 mg/dL (8.4-10.5); GFR NON-AFRICAN AMERICAN > 60
[2018-08-06] MEDS ORDERED: Potassium Chloride 20 mEq ER Tab PO STA (08:32)
--- NOTE | 2018-08-06 08:36 | CP.PCM.PN ---
<Aroldo Castro - Last Filed: 08/06/18 13:32> Subjective - Date & Time of Evaluation Date of Evaluation: 08/06/18 Time of Evaluation: 07:15 - Subjective Subjective: Progress Note for Hospitalist Service Patient seen and examiend this AM. Patient noted to be tremulous and requeesting ativan from nursing staff. Telemetry showing elevated heart rate overnight. Patient without agitation, hallucinations. Patient indicates that she is feeling better since admission. She indicates that she has had previous episodes of confusion after drinking. Objective - Vital Signs/Intake and Output Vital Signs (last 24 hours): Temp Pulse Resp BP Pulse Ox 98 F 100 H 20 106/74 98 08/06/18 06:00 08/06/18 06:00 08/06/18 06:00 08/06/18 06:00 08/06/18 06:00 Intake and Output: 08/06/18 08/06/18 06:59 18:59 Intake Total 1690 Output Total 800 Balance 890 - Medications Medications: Current Medications Al Hydrox/Mg Hydrox/Simethicone (Maalox Plus 30 Ml) 30 ml PO DAILY PRN PRN Reason: Indigestion / Heartburn Last Admin: 08/05/18 18:20 Dose: 30 ml Dextrose (Dextrose 50% Inj) 0 ml IV STAT PRN; Protocol PRN Reason: Hypoglycemia Protocol Folic Acid (Folic Acid) 1 mg PO DAILY COUNT INCLUDES THE [facility] Dextrose (Dextrose 5% In Water 1000 Ml) 1,000 mls @ 0 mls/hr IV .Q0M PRN; Protocol PRN Reason: Hypoglycemia Protocol Insulin Human Lispro (Humalog Low) 0 units SC ACHS LUISITO; Protocol Last Admin: 08/05/18 21:21 Dose: Not Given Lorazepam (Ativan) 1 mg IVP Q6H PRN; Protocol PRN Reason: Symptoms of alcohol withdrawl Last Admin: 08/06/18 02:20 Dose: 1 mg Multivitamins/Minerals (Therapeutic-M Tab) 1 tab PO 0800 COUNT INCLUDES THE [facility] Pantoprazole Sodium (Protonix Ec Tab) 40 mg PO 0600 COUNT INCLUDES THE [facility] Last Admin: 08/06/18 06:20 Dose: 40 mg Thiamine HCl (Vitamin B1 Tab) 100 mg PO DAILY LUISITO - Labs Labs: 08/06/18 07:10 08/06/18 07:10 PT 9.8 SECONDS (9.4-12.5) 05/30/19 00:25 INR 0.88 08/05/18 00:25 APTT 25.4 Seconds (26.9-38.3) L 08/05/18 00:25 - Constitutional Appears: No Acute Distress - Head Exam Head Exam: ATRAUMATIC, NORMOCEPHALIC - Eye Exam Eye Exam: EOMI, PERRL - ENT Exam ENT Exam: Mucous Membranes Moist - Respiratory Exam Respiratory Exam: Clear to Ausculation Bilateral, NORMAL BREATHING PATTERN. absent: Rales, Rhonchi, Wheezes - Cardiovascular Exam Cardiovascular Exam: Tachycardia, REGULAR RHYTHM, +S1, +S2 - GI/Abdominal Exam GI & Abdominal Exam: Soft, Normal Bowel Sounds - Neurological Exam Neurological Exam: Alert, Awake, Oriented x3 Neuro motor strength exam: Left Upper Extremity: 5, Right Upper Extremity: 5, Left Lower Extremity: 5, Right Lower Extremity: 5 Additional comments: patient noted to have slowed intentional movement - Psychiatric Exam Psychiatric exam: absent: Homicidal Ideation, Suicidal Ideation Additional comments: lethargic, cooperative wth questioning, - Skin Skin Exam: Dry, Intact Assessment and Plan - Assessment and Plan (Free Text) Assessment: 52 year old female with PMH of hypertension, alcohol abuse, substance abuse, COPD, Gastritis (EGD on 04/2017 showing gastritis) who presented to the ED for symptoms of anxiety, hallucinations, chest discomfort after binge drinking two days ago. Patient was admitted and observed for altered mental status. Plan: Altered Mental Status - Etiology: CVA vs. ETOH withdrawal vs. substance abuse vs. medication vs. Acid base disorder - Head CT without contrast showing: No acute intracranial hemorrhage. Suspect minimal chronic periventricular white matter ischemic changes. Questionable artifact versus a few tiny chronic bilateral basal nuclei lacunar type infarcts. - ABG showing metabolic alkalosis on 08/06 - Unknown patient baseline, possible contribution - Mentation improving during admission, continue to monitor Metabolic Alkalosis - Etiology: GI loss from previous nausea vomiting prior to admission vs. diuretic usage vs. Bartters vs. Gittlemans vs. medication - ABG showing metabolic alkalosis with pH of 7.65, pCO2 54, Bicarb 44 - Urine chloride received, follow up results - Continue with IV hydration with normal saline ETOH withdrawal - Patient with ETOH of 13 on admission, reports of gallon of vodka prior to admission - Last drink questionable, best indications to be 2 days prior, denies hallucin ations past 24 hours - Patient continues to report tremors and shaking - Vitals have shown some tachycardia, BP stable - Continue to MV, folic acid, CIWA, ativan prn 1 Q6H pRn Hypokalemia -Replete and monitor in AM -EKG appreciated Dispo: Patient to be seen by PT for evaluation of amublation status, continue to monitor patient for withdrawal symptoms and deconditioning, likely dc in 24-48 hours. GI/DVT ppx Patient case and plan discussed with attending, Dr. Ayala <Donovan Ayala - Last Filed: 08/06/18 16:24> Objective - Vital Signs/Intake and Output Vital Signs (last 24 hours): Temp Pulse Resp BP Pulse Ox 98.6 F 97 H 19 107/74 98 08/06/18 12:00 08/06/18 14:00 08/06/18 12:00 08/06/18 12:00 08/06/18 06:00 Intake and Output: 08/06/18 08/06/18 06:59 18:59 Intake Total 1690 Output Total 800 Balance 890 - Medications Medications: Current Medications Al Hydrox/Mg Hydrox/Simethicone (Maalox Plus 30 Ml) 30 ml PO DAILY PRN PRN Reason: Indigestion / Heartburn Last Admin: 08/05/18 18:20 Dose: 30 ml Dextrose (Dextrose 50% Inj) 0 ml IV STAT PRN; Protocol PRN Reason: Hypoglycemia Protocol Folic Acid (Folic Acid) 1 mg PO DAILY COUNT INCLUDES THE [facility] Last Admin: 08/06/18 09:12 Dose: Not Given Dextrose (Dextrose 5% In Water 1000 Ml) 1,000 mls @ 0 mls/hr IV .Q0M PRN; Protocol PRN Reason: Hypoglycemia Protocol Insulin Human Lispro (Humalog Low) 0 units SC ACHS COUNT INCLUDES THE [facility]; Protocol Last Admin: 08/06/18 13:10 Dose: Not Given Lorazepam (Ativan) 1 mg IVP Q6H PRN; Protocol PRN Reason: Symptoms of alcohol withdrawl Last Admin: 08/06/18 11:16 Dose: 1 mg Multivitamins/Minerals (Therapeutic-M Tab) 1 tab PO 0800 COUNT INCLUDES THE [facility] Last Admin: 08/06/18 08:48 Dose: 1 tab Pantoprazole Sodium (Protonix Ec Tab) 40 mg PO 0600 COUNT INCLUDES THE [facility] Last Admin: 08/06/18 06:20 Dose: 40 mg Thiamine HCl (Vitamin B1 Tab) 100 mg PO DAILY COUNT INCLUDES THE [facility] Last Admin: 08/06/18 09:12 Dose: Not Given - Labs Labs: 08/06/18 07:10 08/06/18 07:10 PT 9.8 SECONDS (9.4-12.5) 08/05/18 00:25 INR 0.88 08/05/18 00:25 APTT 25.4 Seconds (26.9-38.3) L 08/05/18 00:25 Attending/Attestation - Attestation I have personally seen and examined this patient.: Yes I have fully participated in the care of the patient.: Yes I have reviewed all pertinent clinical information, including history, physical exam and plan: Yes Notes (Text): 08/06/18 16:15 Patient was seen and examined with medical accounts receivable specialist. 52 year old female with PMH of hypertension, alcohol abuse, substance abuse, COPD, Gastritis (EGD on 04/2017 showing gastritis) was admitted for alcohol withdrawal, atypical chest pain, and metabolic alkalosis likely due to volume lose. Alcohol withdrawal are better.Patient is alert, awake, has intermittent confusion but mostly alert,awake and oriented. Continue CIWA Protocol. Chest pain is atypical in nature,Sinus tachycardia was due to alcohol withdrawal.D-dimer was elevated ,V/Q scan was low probability. Sinus tachycardia is improving. CORINA and metabolic alkalosis is improving with IV hydration. Hypokalemia on replacement. Issue of ongoing alcohol abuse was discussed in detail with the patient. Management plan was discussed in detail with patient. Education was provided, need reinforcement. 08/06/18 16:24
[2018-08-06] MEDS: Multivitamin With Minerals Tab PO SCH (08:48)
[2018-08-06] MEDS: Insulin Lispro (humaLOG) LOW Coverage SC SCH ×3 (08:48→16:53)
[2018-08-06] MEDS ORDERED: Potassium Chloride 20 mEq ER Tab PO ONE (14:00)
--- NOTE | 2018-08-06 15:18 | CARD ---
APPROVED REPORT Date of service: 08/06/2018 EXAM: Two-dimensional and M-mode echocardiogram with Doppler and color Doppler. INDICATION ATYPICAL CP, R/O DILATED CARDIOMYOPATHY 2D DIMENSIONS Left Atrium (2D)3.8 (1.6-4.0cm)IVSd1.3 (0.7-1.1cm) LVDd3.4 (3.9-5.9cm)PWd1.5 (0.7-1.1cm) LVDs2.0 (2.5-4.0cm)FS (%) 41.7 % LVEF (%)73.8 (>50%) M-Mode DIMENSIONS Aortic Root2.60 (2.2-3.7cm)Aortic Cusp Exc.1.50 (1.5-2.0cm) Aortic Valve AoV Peak Yqudteqr323.0cm/sAoV VTI22.8cmAO Peak GR.9mmHg LVOT Peak Yexpwjqu599.0cm/sLVOT VTI23.80cmAO Mean GR.6mmHg AI P 1/2 [id number] Mitral Valve MV E Rpvqazkk78.6cm/sMV A Akwlsxhs06.0cm/sE/A ratio0.7 TDI Lateral E' Peak V8.97cm/sMedial E' Peak V5.56cm/sE/Lateral E'5.6 E/Medial E'9.1 Pulmonary Valve PV Peak Jqmxucwd779.0cm/sPV Peak Grad.4mmHg Tricuspid Valve TR Peak Voqgaife704lv/sRAP [id number] Peak Gr.29mmHg [id number] LEFT VENTRICLE The left ventricle is normal size. There is borderline concentric left ventricular hypertrophy. The left ventricular function is normal. The left ventricular ejection fraction is within the normal range. There is normal LV segmental wall motion. Transmitral Doppler flow pattern is Grade I-abnormal relaxation pattern. RIGHT VENTRICLE The right ventricle is normal size. There is normal right ventricular wall thickness. The right ventricular systolic function is normal. ATRIA The left atrium size is normal. The right atrium size is normal. AORTIC VALVE The aortic valve is probably bicuspid. There is mild to moderate aortic regurgitation. MITRAL VALVE The mitral valve is mildly thickened. There is no mitral valve regurgitation noted. There is no mitral valve stenosis. TRICUSPID VALVE There is mild tricuspid regurgitation. There is mild pulmonary hypertension. PULMONIC VALVE The pulmonary valve is normal in structure. There is no pulmonic valvular regurgitation. GREAT VESSELS The aortic root is normal in size. The IVC is normal in size and collapses >50% with inspiration. PERICARDIAL EFFUSION There is no pericardial effusion. <Conclusion> The left ventricle is normal size. There is borderline concentric left ventricular hypertrophy. The left ventricular function is normal. The left ventricular ejection fraction is within the normal range. There is normal LV segmental wall motion. Transmitral Doppler flow pattern is Grade I-abnormal relaxation pattern. The aortic valve is probably bicuspid. There is mild to moderate aortic regurgitation. There is mild tricuspid regurgitation. There is mild pulmonary hypertension.
[2018-08-06 23:00] VITALS: RESP 20
[2018-08-07] MEDS: Insulin Lispro (humaLOG) LOW Coverage SC SCH ×3 (04:17→11:22)
[2018-08-07] MEDS: Pantoprazole 40 mg EC Tab PO SCH (05:32)
[2018-08-07 07:14] LABS: HEMOGLOBIN 14.6 g/dL (12.0-16.0); MEAN CELL VOLUME 91.7 fl (80.0-105.0); MEAN CORPUSCULAR HEMOGLOBIN 28.9 pg (25.0-35.0); MEAN CORPUSCULAR HGB CONC 31.5 g/dl (31.0-37.0); MEAN PLATELET VOLUME 10.1 fl (7.0-11.0); RBC 5.05 10^6/uL (3.5-6.1); RED CELL DISTRIBUTION WIDTH 14.6 % (11.5-14.5); WHITE BLOOD COUNT 9.2 10^3/uL (4.5-11.0)
[2018-08-07] MEDS: Multivitamin With Minerals Tab PO SCH (07:35)
[2018-08-07 07:41] LABS: ALB/GLOB RATIO 1.1 (1.1-1.8); ALBUMIN 4.4 g/dL (3.0-4.8); ALT/SGPT 43 U/L (7-56); AST/SGOT 74 U/L (14-36); BLOOD UREA NITROGEN 19 mg/dL (7-21); CALCIUM 9.8 mg/dL (8.4-10.5); GFR NON-AFRICAN AMERICAN > 60
[2018-08-07 10:52] VITALS: BP 104/20; PULSE 87; TEMP 98.1; O2SAT 97
--- NOTE | 2018-08-07 11:44 | CP.PCM.DIS ---
<Leroy Gómez - Last Filed: 08/07/18 17:04> Provider - Provider Date of Admission: 08/05/18 03:27 Attending physician: Donovan Ayala MD Consults: 08/05/18 06:19 Transition In Care/Readmission Reduction Routine Comment: Physician Instructions: Reason For Exam: evaluation Time Spent in preparation of Discharge (in minutes): 45 Diagnosis - Discharge Diagnosis (1) Alcohol withdrawal Status: Acute (2) Hypokalemia Status: Acute (3) Alcoholic ketoacidosis Status: Acute Hospital Course - Lab Results Lab Results: Most Recent Lab Values WBC 9.2 10^3/uL (4.5-11.0) 08/07/18 06:50 RBC 5.05 10^6/uL (3.5-6.1) 08/07/18 06:50 Hgb 14.6 g/dL (12.0-16.0) 08/07/18 06:50 Hct 46.3 % (36.0-48.0) 08/07/18 06:50 MCV 91.7 fl (80.0-105.0) 08/07/18 06:50 MCH 28.9 pg (25.0-35.0) 08/07/18 06:50 MCHC 31.5 g/dl (31.0-37.0) 08/07/18 06:50 RDW 14.6 % (11.5-14.5) H 08/07/18 06:50 Plt Count 230 10^3/uL (120.0-450.0) 08/07/18 06:50 MPV 10.1 fl (7.0-11.0) 08/07/18 06:50 PT 9.8 SECONDS (9.4-12.5) 08/05/18 00:25 INR 0.88 08/05/18 00:25 APTT 25.4 Seconds (26.9-38.3) L 08/05/18 00:25 D-Dimer, Quantitative 379 ng/mlDDU (0-243) H 08/05/18 00:25 pCO2 54 mm/Hg (35-45) H 08/05/18 11:03 pO2 57.0 mm/Hg (80-100) L 08/05/18 11:03 HCO3 59.5 mmol/L (21-28) H* 08/05/18 11:03 ABG pH 7.65 (7.35-7.45) H* 08/05/18 11:03 ABG Total CO2 61.2 mmol.L (22-28) H 08/05/18 11:03 ABG O2 Saturation 93.6 % (95-98) L 08/05/18 11:03 ABG O2 Content 16.7 ML/dl (15-23) 08/05/18 11:03 ABG Base Excess 33.6 mmol/L (-2.0-3.0) H 08/05/18 11:03 ABG Hemoglobin 13.7 g/dL (11.7-17.4) 08/05/18 11:03 ABG Carboxyhemoglobin 5.7 % (0.5-1.5) H 08/05/18 11:03 POC ABG HHb (Measured) 5.9 % (0-5) H 08/05/18 11:03 ABG Methemoglobin 1.5 % (0.0-3.0) 08/05/18 11:03 ABG O2 Capacity 17.8 mL/dl (16-24) 08/05/18 11:03 Hgb O2 Saturation 86.9 % (95.0-98.0) L 08/05/18 11:03 FiO2 21.0 % 08/05/18 11:03 Crit Value Called To Tessy ashby 08/05/18 11:03 Crit Value Called By Noreen 08/05/18 11:03 Blood Gas Notified Time 1106 08/05/18 11:03 Sodium 134 mmol/L (132-148) 08/07/18 06:50 Potassium 4.3 mmol/L (3.6-5.0) 08/07/18 06:50 Chloride 92 mmol/L (98-107) L 08/07/18 06:50 Carbon Dioxide 33 mmol/L (21-33) 08/07/18 06:50 Anion Gap 13 (10-20) 08/07/18 06:50 BUN 19 mg/dL (7-21) 08/07/18 06:50 Creatinine 0.7 mg/dl (0.7-1.2) 08/07/18 06:50 Est GFR ( Amer) > 60 08/07/18 06:50 Est GFR (Non-Af Amer) > 60 08/07/18 06:50 POC Glucose (mg/dL) 120 mg/dL (65-110) H 08/07/18 10:36 Random Glucose 111 mg/dL (70-110) H 08/07/18 06:50 Calcium 9.8 mg/dL (8.4-10.5) 08/07/18 06:50 Phosphorus 6.0 mg/dL (2.5-4.5) H 08/05/18 07:00 Magnesium 2.4 mg/dL (1.7-2.2) H 08/05/18 07:00 Total Bilirubin 0.7 mg/dL (0.2-1.3) 08/07/18 06:50 AST 74 U/L (14-36) H 08/07/18 06:50 ALT 43 U/L (7-56) 08/07/18 06:50 Alkaline Phosphatase 110 U/L (38-126) 08/07/18 06:50 Lactate Dehydrogenase 527 U/L (333-699) 08/05/18 00:25 Total Creatine Kinase 105 U/L (35-230) 08/05/18 00:25 Troponin I 0.05 ng/mL 08/05/18 12:59 Total Protein 8.3 g/dL (5.8-8.3) 08/07/18 06:50 Albumin 4.4 g/dL (3.0-4.8) 08/07/18 06:50 Globulin 3.9 gm/dL 08/07/18 06:50 Albumin/Globulin Ratio 1.1 (1.1-1.8) 08/07/18 06:50 Urine Color Yellow (YELLOW) 08/05/18 11:30 Urine Appearance Clear (CLEAR) 08/05/18 11:30 Urine pH 8.5 (4.7-8.0) 08/05/18 11:30 Ur Specific [place] 1.010 (1.005-1.035) 08/05/18 11:30 Urine Protein 100 mg/dL (<30 mg/dL) H 08/05/18 11:30 Urine Glucose (UA) Negative mg/dL (NEGATIVE) 08/05/18 11:30 Urine Ketones 15 mg/dL (NEGATIVE) H 08/05/18 11:30 Urine Blood Trace-lysed (NEGATIVE) H 08/05/18 11:30 Urine Nitrate Negative (NEGATIVE) 08/05/18 11:30 Urine Bilirubin Small (NEGATIVE) H 08/05/18 11:30 Urine Urobilinogen 0.2 E.U./dL (<1 E.U./dL) 08/05/18 11:30 Ur Leukocyte Esterase Negative Darwin/uL (NEGATIVE) 08/05/18 11:30 Urine RBC 1 - 3 /hpf (0-2) H 08/05/18 11:30 Urine WBC 0 - 2 /hpf (0-6) 08/05/18 11:30 Ur Epithelial Cells 4 - 5 /hpf (0-5) 08/05/18 11:30 Triple Phos Crystals Few /hpf (NONE) 08/05/18 11:30 Amorphous Sediment Small /hpf (NONE) 08/05/18 11:30 Urine Bacteria Many /hpf (NONE) 08/05/18 11:30 Hyaline Casts 0 - 2 /hpf (NONE) 08/05/18 11:30 Fine Granular Casts 0 - 2 /hpf (NONE) 08/05/18 11:30 Coarse Granular Casts Trace /hpf (NONE) 08/05/18 11:30 Urine Other Uyeast /hpf 08/05/18 11:30 Ur Random Sodium 118 meq/L 08/05/18 19:49 Ur Random Potassium 45.1 meq/L 08/05/18 19:49 Urine Opiates Screen Negative (NEGATIVE) 08/05/18 03:11 Urine Methadone Screen Negative (NEGATIVE) 08/05/18 03:11 Ur Barbiturates Screen Negative (NEGATIVE) 08/05/18 03:11 Ur Phencyclidine Scrn Negative (NEGATIVE) 08/05/18 03:11 Ur Amphetamines Screen Negative (NEGATIVE) 08/05/18 03:11 U Benzodiazepines Scrn Negative (NEGATIVE) 08/05/18 03:11 U Oth Cocaine Metabols Negative (NEGATIVE) 08/05/18 03:11 U Cannabinoids Screen Positive (NEGATIVE) H 08/05/18 03:11 Alcohol, Quantitative 13 mg/dL (0-10) H 08/05/18 00:25 - Hospital Course Hospital Course: Upon Admission: Patient is a 52 year old female whose past medical history includes hypertension, alcohol abuse, substance abuse, COPD, Gastritis (EGD on 04/2017 showing gastritis) who presents to the ED for symptoms of anxiety, hallucinations, chest discomfort after binge drinking two days ago. Patient says she will often binge drink a gallon of liquor. She also has symptoms of anxiety with some occasional shortness of breath. She says she sees sparkles. She denies OCP use, recent immobility, recent surgery. She does endorse nausea and vomiting after binge drinking. Patient denies fever, chills, headache, bowel/bladder changes. Patient has a previous admission on 04/18/17 for alcohol abuse/withdrawal in which she was found to have a bleeding esophageal ulcer on EGD with biopsy showing Gastritis. Hospital Course: Pt was being worked up for alcoholic ketosis due to etoh intoxication vs withdrawal. Pt was noted to have an etOH level of 13 and a high anion gap metabolic acidosis initially at 29. Pt was placed on CIWA protocol, given a banana bag and ativan PRN and scheduled. Pt had prolonged QTc so benadryl was used for nausea/vomiting. Pt was also given a multivitamin, folate and thiamine. Pt placed on seizure and aspiration precautions. Head CT was done and was noted to be negative for acute intracranial hemorrhage. Pt was noted to have metabolic alkalosis on ABG, which is likely contributed by her vomiting, which had resolved upon time for discharge. Pt is AOx3 upon examination this AM and is able to ambulate without assistance. Pt was noted to initially be hypokalemic and was repleted appropriately. Pt no longer exhibited any symptoms of anxiety or hallucinations at this time. Pts VS are stable at this time. Due to pts sinus tachy D-dimer was ordered and elevated. V/Q scan was (-) for PE. Pt this AM was stable and had no acute complaints. Pt was medically optimized for discharge and the discharge plan was discussed with the pt. The pt expressed understanding and agreement with the plan for discharge. All of the pts questions and concerns were addressed prior to d/c. Of note pt left before reciving medications or d/c paperwork. Discharge Exam - Head Exam Head Exam: ATRAUMATIC, NORMAL INSPECTION, NORMOCEPHALIC - Eye Exam Eye Exam: EOMI, Normal appearance, PERRL - Respiratory Exam Respiratory Exam: Clear to PA & Lateral, NORMAL BREATHING PATTERN, UNREMARKABLE. absent: Accessory Muscle Use, Decreased Breath Sounds, Rales, Rhonchi, Wheezes, Respiratory Distress, Stridor - Cardiovascular Exam Cardiovascular Exam: RRR, +S1, +S2. absent: Gallop, Rubs - GI/Abdominal Exam GI & Abdominal Exam: Normal Bowel Sounds, Soft, Unremarkable. absent: Distended, Firm, Guarding, Tenderness - Extremities Exam Extremities exam: normal capillary refill, normal inspection, pedal pulses present - Back Exam Back exam: NORMAL INSPECTION. absent: CVA tenderness (L), CVA tenderness (R) - Neurological Exam Neurological exam: Alert, Oriented x3 - Psychiatric Exam Psychiatric exam: Normal Affect, Normal Mood - Skin Skin Exam: Dry, Normal Color, Warm Discharge Plan - Discharge Medications Prescriptions: Folic Acid 1 mg PO DAILY 30 Days #30 tab Multivit-Min/Iron/Folic Acid/K [Adults Multivitamin Caplet] 1 each PO DAILY 30 Days #30 tablet Thiamine [Vitamin B1 Tab] 50 mg PO DAILY 30 Days #30 tab - Follow Up Plan Condition: STABLE Disposition: ELOPED FROM NURSING UNIT Instructions: Alcohol Use - When Is Drinking a Problem?, Seizures, Adult (DC), Angina (DC), Preventing Falls, Quitting Smoking, Alcohol Withdrawal (DC) Additional Instructions: - Please follow up with your Primary Care Doctor within 3-5 days from discharge. - We have given you 3 new medications: - Thiamine, Folate and multivitamin: To help maintain proper nutrition - Please discontinue the use of alcohol, as this is effecting your liver and will negatively effect your overall health as well. - If you have any new or returning symptoms, please return to the nearest emergency department. <Donovan Ayala - Last Filed: 08/07/18 18:31> Provider - Provider Date of Admission: 08/05/18 03:27 Attending physician: Donovan Ayala MD Consults: 08/05/18 06:19 Transition In Care/Readmission Reduction Routine Comment: Physician Instructions: Reason For Exam: evaluation Hospital Course - Lab Results Lab Results: Most Recent Lab Values WBC 9.2 10^3/uL (4.5-11.0) 08/07/18 06:50 RBC 5.05 10^6/uL (3.5-6.1) 08/07/18 06:50 Hgb 14.6 g/dL (12.0-16.0) 08/07/18 06:50 Hct 46.3 % (36.0-48.0) 08/07/18 06:50 MCV 91.7 fl (80.0-105.0) 08/07/18 06:50 MCH 28.9 pg (25.0-35.0) 08/07/18 06:50 MCHC 31.5 g/dl (31.0-37.0) 08/07/18 06:50 RDW 14.6 % (11.5-14.5) H 08/07/18 06:50 Plt Count 230 10^3/uL (120.0-450.0) 08/07/18 06:50 MPV 10.1 fl (7.0-11.0) 08/07/18 06:50 PT 9.8 SECONDS (9.4-12.5) 08/05/18 00:25 INR 0.88 08/05/18 00:25 APTT 25.4 Seconds (26.9-38.3) L 08/05/18 00:25 D-Dimer, Quantitative 379 ng/mlDDU (0-243) H 08/05/18 00:25 pCO2 54 mm/Hg (35-45) H 08/05/18 11:03 pO2 57.0 mm/Hg (80-100) L 08/05/18 11:03 HCO3 59.5 mmol/L (21-28) H* 08/05/18 11:03 ABG pH 7.65 (7.35-7.45) H* 08/05/18 11:03 ABG Total CO2 61.2 mmol.L (22-28) H 08/05/18 11:03 ABG O2 Saturation 93.6 % (95-98) L 08/05/18 11:03 ABG O2 Content 16.7 ML/dl (15-23) 08/05/18 11:03 ABG Base Excess 33.6 mmol/L (-2.0-3.0) H 08/05/18 11:03 ABG Hemoglobin 13.7 g/dL (11.7-17.4) 08/05/18 11:03 ABG Carboxyhemoglobin 5.7 % (0.5-1.5) H 08/05/18 11:03 POC ABG HHb (Measured) 5.9 % (0-5) H 08/05/18 11:03 ABG Methemoglobin 1.5 % (0.0-3.0) 08/05/18 11:03 ABG O2 Capacity 17.8 mL/dl (16-24) 08/05/18 11:03 Hgb O2 Saturation 86.9 % (95.0-98.0) L 08/05/18 11:03 FiO2 21.0 % 08/05/18 11:03 Crit Value Called To Tessy ashby 08/05/18 11:03 Crit Value Called By Noreen 08/05/18 11:03 Blood Gas Notified Time 1106 08/05/18 11:03 Sodium 134 mmol/L (132-148) 08/07/18 06:50 Potassium 4.3 mmol/L (3.6-5.0) 08/07/18 06:50 Chloride 92 mmol/L (98-107) L 08/07/18 06:50 Carbon Dioxide 33 mmol/L (21-33) 08/07/18 06:50 Anion Gap 13 (10-20) 08/07/18 06:50 BUN 19 mg/dL (7-21) 08/07/18 06:50 Creatinine 0.7 mg/dl (0.7-1.2) 08/07/18 06:50 Est GFR ( Amer) > 60 08/07/18 06:50 Est GFR (Non-Af Amer) > 60 08/07/18 06:50 POC Glucose (mg/dL) 120 mg/dL (65-110) H 08/07/18 10:36 Random Glucose 111 mg/dL (70-110) H 08/07/18 06:50 Calcium 9.8 mg/dL (8.4-10.5) 08/07/18 06:50 Phosphorus 6.0 mg/dL (2.5-4.5) H 08/05/18 07:00 Magnesium 2.4 mg/dL (1.7-2.2) H 08/05/18 07:00 Total Bilirubin 0.7 mg/dL (0.2-1.3) 08/07/18 06:50 AST 74 U/L (14-36) H 08/07/18 06:50 ALT 43 U/L (7-56) 08/07/18 06:50 Alkaline Phosphatase 110 U/L (38-126) 08/07/18 06:50 Lactate Dehydrogenase 527 U/L (333-699) 08/05/18 00:25 Total Creatine Kinase 105 U/L (35-230) 08/05/18 00:25 Troponin I 0.05 ng/mL 08/05/18 12:59 Total Protein 8.3 g/dL (5.8-8.3) 08/07/18 06:50 Albumin 4.4 g/dL (3.0-4.8) 08/07/18 06:50 Globulin 3.9 gm/dL 08/07/18 06:50 Albumin/Globulin Ratio 1.1 (1.1-1.8) 08/07/18 06:50 Urine Color Yellow (YELLOW) 08/05/18 11:30 Urine Appearance Clear (CLEAR) 08/05/18 11:30 Urine pH 8.5 (4.7-8.0) 08/05/18 11:30 Ur Specific [place] 1.010 (1.005-1.035) 08/05/18 11:30 Urine Protein 100 mg/dL (<30 mg/dL) H 08/05/18 11:30 Urine Glucose (UA) Negative mg/dL (NEGATIVE) 08/05/18 11:30 Urine Ketones 15 mg/dL (NEGATIVE) H 08/05/18 11:30 Urine Blood Trace-lysed (NEGATIVE) H 08/05/18 11:30 Urine Nitrate Negative (NEGATIVE) 08/05/18 11:30 Urine Bilirubin Small (NEGATIVE) H 08/05/18 11:30 Urine Urobilinogen 0.2 E.U./dL (<1 E.U./dL) 08/05/18 11:30 Ur Leukocyte Esterase Negative Darwin/uL (NEGATIVE) 08/05/18 11:30 Urine RBC 1 - 3 /hpf (0-2) H 08/05/18 11:30 Urine WBC 0 - 2 /hpf (0-6) 08/05/18 11:30 Ur Epithelial Cells 4 - 5 /hpf (0-5) 08/05/18 11:30 Triple Phos Crystals Few /hpf (NONE) 08/05/18 11:30 Amorphous Sediment Small /hpf (NONE) 08/05/18 11:30 Urine Bacteria Many /hpf (NONE) 08/05/18 11:30 Hyaline Casts 0 - 2 /hpf (NONE) 08/05/18 11:30 Fine Granular Casts 0 - 2 /hpf (NONE) 08/05/18 11:30 Coarse Granular Casts Trace /hpf (NONE) 08/05/18 11:30 Urine Other Uyeast /hpf 08/05/18 11:30 Ur Random Sodium 118 meq/L 08/05/18 19:49 Ur Random Potassium 45.1 meq/L 08/05/18 19:49 Urine Chloride <20 mmol/L (32-290) L 08/05/18 19:49 Urine Opiates Screen Negative (NEGATIVE) 08/05/18 03:11 Urine Methadone Screen Negative (NEGATIVE) 08/05/18 03:11 Ur Barbiturates Screen Negative (NEGATIVE) 08/05/18 03:11 Ur Phencyclidine Scrn Negative (NEGATIVE) 08/05/18 03:11 Ur Amphetamines Screen Negative (NEGATIVE) 08/05/18 03:11 U Benzodiazepines Scrn Negative (NEGATIVE) 08/05/18 03:11 U Oth Cocaine Metabols Negative (NEGATIVE) 08/05/18 03:11 U Cannabinoids Screen Positive (NEGATIVE) H 08/05/18 03:11 Alcohol, Quantitative 13 mg/dL (0-10) H 08/05/18 00:25 Attending/Attestation - Attestation I have personally seen and examined this patient.: Yes I have fully participated in the care of the patient.: Yes I have reviewed all pertinent clinical information, including history, physical exam and plan: Yes Notes (Text): 08/07/18 18:29 Patient was seen and examined with medical technologist chief.. Agreed with assessment and plan 52 year old female with PMH of hypertension, alcohol abuse, substance abuse, COPD, Gastritis (EGD on 04/2017 showing gastritis) was admitted for alcohol withdrawal, atypical chest pain, and metabolic alkalosis likely due to volume lose. Alcohol withdrawal are improved.Patient is alert, awake, and oriented.Confusion has resolved. Chest pain was atypical in nature,had chest wall tenderness.EKG was negative for acute ischemic changes.Serial troponins are normal. Patient is pain free. Sinus tachycardia was due to alcohol withdrawal.D-dimer was elevated ,V/Q scan was low probability. Sinus tachycardia is resolved. CORINA and metabolic alkalosis is improved with IV hydration. Hypokalemia is resolved. Issue of ongoing alcohol abuse was discussed in detail with the patient. Management plan was discussed in detail with patient. Education was provided, need reinforcement.
== END 2018-08-07 12:59 | disposition left against medical advice (07) | DRG 749 ==
LOC: ED 23:04 → ERH 08-05 03:27 → 2RNO 08-05 05:24 → 5RSO 08-06 17:14
PROVIDERS: ADMIT Internal Medicine; ATTEND Internal Medicine
DX: F10.239 Alcohol dependence with withdrawal, unspecified (principal); K22.11 Ulcer of esophagus with bleeding; N17.9 Acute kidney failure, unspecified; E87.6 Hypokalemia; E87.4 Mixed disorder of acid-base balance; J44.9 Chronic obstructive pulmonary disease, unspecified; Z80.0 Family history of malignant neoplasm of digestive organs; F12.90 Cannabis use, unspecified, uncomplicated; F17.210 Nicotine dependence, cigarettes, uncomplicated; F41.9 Anxiety disorder, unspecified; I10 Essential (primary) hypertension; K29.70 Gastritis, unspecified, without bleeding; Y90.0 Blood alcohol level of less than 20 mg/100 ml; Z80.9 Family history of malignant neoplasm, unspecified; Z87.11 Personal history of peptic ulcer disease